=== PATIENT | female | born 1980 | race Caucasian/White ===

== ENCOUNTER 2018-05-18 08:04 | Emergency (ER) | payer BC, MEDICAID ==
[~2018-05-18] VITALS: Ht 157.5 cm; Wt 59.4 kg
[2018-05-18] MEDS ORDERED: LACTATED RINGERS 1,000 ML IV STA (08:21)
[2018-05-18] MEDS ORDERED: FAMOTIDINE 20 MG (PEPCID) TABLET PO STA (08:21)
[2018-05-18] MEDS ORDERED: LIDOCAINE 2% VISCOUS 15 ML UDC PO ONE (08:30)
[2018-05-18] MEDS ORDERED: ONDANSETRON 4 MG/2 ML (SDV) Z0FRAN IVP ONE ×2 (08:30→08:45)
[2018-05-18] MEDS ORDERED: ANTACID SUSP 30 ML UDC (MYLANTA) PO ONE (08:30)
--- NOTE | 2018-05-18 08:30 | ED Abdominal Pain ---
General Chief Complaint: Abdominal/GI Problems Stated Complaint: NAUSEA;ABD PAIN Nursing Triage Note: PT PRESENTS TO ER WITH COMPLAINT OF RUQ ABD PAIN AND EPIGASTRIC PAIN. PT WENT TO [facility] WALK IN CLINIC AND WAS TOLD IT COULD BE THE LIVER. PT STATES SHE HAS HAD NAUSEA AND VOMITING, CHILLS. DENIES FEVER. PT STATES SHE WAS PUT ON AMOXICILLIN BY AN ER DOC AT [facility] LAST THURSDAY. Sepsis Screen: No Definite Risk Source of Information: Patient, Family (son) Exam Limitations: No Limitations History of Present Illness Date Seen by Provider: May 18, 2018 Time Seen by Provider: 08:16 Initial Comments The patient presents to ER by private conveyance with chief complaint that for about 5 days she's been having some right upper quadrant epigastric abdominal pain worse on movement better at rest as well as nausea and occasional vomiting. She's had some soft or loose stools with her last one being yesterday. No watery or bloody diarrhea. She has not had a fever but she has had some subjective chills. She went to the walk-in clinic at [facility] and was told at that time her vital signs looked okay so she should just go home with a likely diagnosis of gastroenteritis. She's tried Aleve but that did not help her pain. They did not give her anything for nausea at that time because she had not vomited yet. No sick contacts. She's recently moved to the area so she does not have a primary care provider. She has no history of IBS, IBD. She has had her gallbladder out as well as a , tubal ligation, hysterectomy, stitch removal/abscess I&D. She has been able to eat and drink. Last night she had [place] food before that she's been eating a lot of spicy [place] food. She does not notice any particular food makes her symptoms worse. She has no history of pancreatitis. She does not drink alcohol. She does not have a history of diabetes. She does have a history of fibromyalgia, gestational diabetes, osteoarthritis. She says she was followed by a rn staffing previously for her fibromyalgia and she would like to find another one. Allergies and Home Medications Allergies Coded Allergies: codeine (Verified Allergy, Unknown, 05/18/18) hydrocodone (Verified Allergy, Unknown, 05/18/18) latex (Verified Allergy, Unknown, 05/18/18) oseltamivir (Verified Allergy, Unknown, 05/18/18) Patient Home Medication List Home Medication List Reviewed: Yes Review of Systems Review of Systems Constitutional: No chills, No diaphoresis EENTM: No Blurred Vision, No Double Vision Respiratory: Denies Cough, Denies Shortness of Air Cardiovascular: Denies Chest Pain, Denies Edema Gastrointestinal: See HPI; Denies Abdomen Distended; Abdominal Pain; Denies Constipated, Denies Diarrhea; Nausea; Denies Poor Appetite, Denies Poor Fluid Intake, Denies Vomiting Genitourinary: Denies Burning, Denies Discharge Musculoskeletal: No back pain, No joint pain Psychiatric/Neurological: Denies Anxiety, Denies Depressed Past Slwoegb-Nmzcia-Pjydfo Hx Patient Social History Alcohol Use: Denies Use Recreational Drug Use: No Smoking Status: Current Someday Smoker 2nd Hand Smoke Exposure: Yes Recent Foreign Travel: No Contact w/Someone Who Travel: No Recent Infectious Disease Expo: No Recent Hopitalizations: No Immunizations Up To Date Tetanus Booster (TDap): More than 5yrs PED Vaccines UTD: Yes Past Medical History Surgeries: Yes Section, Gallbladder, Hysterectomy, Tubal Ligation Respiratory: No Cardiac: No 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 oz. [id number]; BMI Method:Stated General Appearance: WD/WN, no apparent distress HEENT: normal ENT inspection, pharynx normal Neck: full range of motion, normal inspection Respiratory: no respiratory distress, no accessory muscle use Cardiovascular: normal peripheral pulses, regular rate, rhythm, no edema Gastrointestinal: normal bowel sounds, soft, no organomegaly; No distended, No guarding, No rebound; tenderness (epigastric tenderness mild right upper quadrant tenderness without Bonds sign. No Rovsing or McBurney's point tenderness.); No hernia Extremities: normal inspection, no pedal edema, normal capillary refill Neurologic/Psychiatric: alert, normal mood/affect, oriented x 3 Skin: normal color, warm/dry Progress/Results/Core Measures Results/Orders Lab Results Laboratory Tests Test 05/18/18 08:23 05/18/18 08:35 05/18/18 09:18 Range/Units White Blood Count 7.8 4.3-11.0 10^3/uL Red Blood Count 4.63 4.35-5.85 10^6/uL Hemoglobin 13.1 11.5-16.0 G/DL Hematocrit 39 35-52 % Mean Corpuscular Volume 84 80-99 FL Mean Corpuscular Hemoglobin 28 25-34 PG Mean Corpuscular Hemoglobin Concent 34 32-36 G/DL Red Cell Distribution Width 13.1 10.0-14.5 % Platelet Count 249 130-400 10^3/uL Mean Platelet Volume 9.8 7.4-10.4 FL Neutrophils (%) (Auto) 60 42-75 % Lymphocytes (%) (Auto) 30 12-44 % Monocytes (%) (Auto) 7 0-12 % Eosinophils (%) (Auto) 2 0-10 % Basophils (%) (Auto) 0 0-10 % Neutrophils # (Auto) 4.7 1.8-7.8 X 10^3 Lymphocytes # (Auto) 2.4 1.0-4.0 X 10^3 Monocytes # (Auto) 0.5 0.0-1.0 X 10^3 Eosinophils # (Auto) 0.2 0.0-0.3 10^3/uL Basophils # (Auto) 0.0 0.0-0.1 10^3/uL Prothrombin Time 12.2 12.2-14.7 SEC INR Comment 0.9 0.8-1.4 Activated Partial Thromboplast Time 31 24-35 SEC Urine Color YELLOW Urine Clarity CLEAR Urine pH 5 5-9 Urine Specific [place] 1.005 L 1.016-1.022 Urine Protein NEGATIVE NEGATIVE Urine Glucose (UA) NEGATIVE NEGATIVE Urine Ketones NEGATIVE NEGATIVE Urine Nitrite NEGATIVE NEGATIVE Urine Bilirubin NEGATIVE NEGATIVE Urine Urobilinogen NORMAL NORMAL MG/DL Urine Leukocyte Esterase NEGATIVE NEGATIVE Urine RBC (Auto) NEGATIVE NEGATIVE Urine RBC NONE /HPF Urine WBC RARE /HPF Urine Squamous Epithelial Cells 10-25 H /HPF Urine Crystals NONE /LPF Urine Bacteria FEW H /HPF Urine Casts NONE /LPF Urine Mucus NEGATIVE /LPF Urine Culture Indicated NO Urine Opiates Screen NEGATIVE NEGATIVE Urine Oxycodone Screen NEGATIVE NEGATIVE Urine Methadone Screen NEGATIVE NEGATIVE Urine Propoxyphene Screen NEGATIVE NEGATIVE Urine Barbiturates Screen NEGATIVE NEGATIVE Ur Tricyclic Antidepressants Screen NEGATIVE NEGATIVE Urine Phencyclidine Screen NEGATIVE NEGATIVE Urine Amphetamines Screen NEGATIVE NEGATIVE Urine Methamphetamines Screen NEGATIVE NEGATIVE Urine Benzodiazepines Screen NEGATIVE NEGATIVE Urine Cocaine Screen NEGATIVE NEGATIVE Urine Cannabinoids Screen NEGATIVE NEGATIVE Sodium Level 140 135-145 MMOL/L Potassium Level 3.8 3.6-5.0 MMOL/L Chloride Level 105 98-107 MMOL/L Carbon Dioxide Level 26 21-32 MMOL/L Anion Gap 9 5-14 MMOL/L Blood Urea Nitrogen 14 7-18 MG/DL Creatinine 0.63 0.60-1.30 MG/DL Estimat Glomerular Filtration Rate > 60 BUN/Creatinine Ratio 22 Glucose Level 112 H 70-105 MG/DL Calcium Level 9.0 8.5-10.1 MG/DL Corrected Calcium 9.2 8.5-10.1 MG/DL Magnesium Level 1.9 1.8-2.4 MG/DL Total Bilirubin 0.3 0.1-1.0 MG/DL Aspartate Amino Transf (AST/SGOT) 14 5-34 U/L Alanine Aminotransferase (ALT/SGPT) 18 0-55 U/L Alkaline Phosphatase 94 40-136 U/L Total Protein 6.8 6.4-8.2 GM/DL Albumin 3.7 3.2-4.5 GM/DL Lipase 7 L 8-78 U/L My Orders Orders - NAHID ZUNIGA Cbc With Automated Diff (05/18/18 08:21) Comprehensive Metabolic Panel (05/18/18 08:21) Drug Screen Stat (Urine) (05/18/18 08:21) Lipase (05/18/18 08:21) Magnesium (05/18/18 08:21) Protime With Inr (05/18/18 08:21) Partial Thromboplastin Time (05/18/18 08:21) Ua Culture If Indicated (05/18/18 08:21) Lidocaine 2% Viscous 15 Ml (Xylocaine Vi (05/18/18 08:30) Famotidine Tablet (Pepcid Tablet) (05/18/18 08:21) Antacid Suspension (Mylanta Suspension (05/18/18 08:30) Lactated Ringers (Lr 1000 Ml Iv Solution (05/18/18 08:21) Saline Lock/Iv-Start (05/18/18 08:21) Ondansetron Injection (Zofran Injectio (05/18/18 08:30) Ondansetron Injection (Zofran Injectio (05/18/18 08:45) Medications Given in ED Current Medications Medications Dose Ordered Sig/Tylor Route Start Time Stop Time Status Last Admin Dose Admin Al Hydrox/Mg Hydrox/Simethicone 30 ml ONCE ONCE PO 05/18/18 08:30 05/18/18 08:31 DC 05/18/18 09:09 30 ML Lidocaine HCl 15 ml ONCE ONCE PO 05/18/18 08:30 05/18/18 08:31 DC 05/18/18 09:09 15 ML Ondansetron HCl 4 mg ONCE ONCE IVP 05/18/18 08:30 05/18/18 08:31 DC 05/18/18 08:31 4 MG Ondansetron HCl 4 mg ONCE ONCE IVP 05/18/18 08:45 05/18/18 08:46 DC 05/18/18 08:40 4 MG Vital Signs/I&O 05/18/18 08:08 Temp 98.5 Pulse 95 Resp 20 B/P (MAP) 132/85 (101) Pulse Ox 98 O2 Delivery Room Air Blood Pressure Mean: 101 Progress Progress Note #1: Time: 08:31 Progress Note Nonacute abdomen. We'll give her a GI cocktail to start as well as some Zofran. Most likely this is a viral gastroenteritis. If she is able to eat and keep some food down and did not demonstrate any clinical evidence of dehydration and maybe a little just treat her symptoms. She's marginally tachycardic with a heart rate in the 90s so if there is an elevated white cell count and we will obtain a septic workup but no indication for imaging just yet. Lipase, urinalysis. Progress Note #2: Time: 09:54 Progress Note Patient's pain is marginally improved. She's only had one dry heaves since her second dose of Zofran. We'll give her a dose of Phenergan and let her go home. Her fluids are almost done. Her labs are clean. If this is most likely viral gastroenteritis and can be managed at home with some Zofran. Departure Impression Primary Impression: Gastroenteritis and colitis, viral Additional Impression: Abdominal pain Qualified Codes: R10.13 - Epigastric pain Disposition: 01 HOME, SELF-CARE Condition: Improved Departure-Patient Inst. Decision time for Depature: 09:56 Patient Instructions: [id number] Add. Discharge Instructions: Use the Zofran 1 tablet every 6 hours as needed to control your nausea and vomiting. Drink plenty of fluids. Edison diet of bananas, rice, applesauce toast etc. If your diarrhea is loose and watery for more than 2 days in a row start taking Imodium 2 tablets first followed by one tablet every 4 hours until no longer watery. Establish care with a primary care doctor. For your abdominal pain use antacids such as Tums, Maalox, Pepcid or Prilosec. Tylenol can also be helpful. All discharge instructions reviewed with patient and/or family. Voiced understanding. Scripts Ondansetron (Ondansetron Odt) 4 Mg Tab.rapdis 4 MG PO Q6H PRN for NAUSEA/VOMITING, #8 TAB 0 Refills Prov: NAHID ZUNIGA 05/18/18 Work/School Note: Work Release Form Date Seen in the Emergency Department: May 18, 2018 Return to Work: May 20, 2018 Restrictions: No Restrictions NAHID ZUNIGA May 18, 2018 08:30
[2018-05-18 08:31] LABS: BASOPHILS % (AUTO) 0 % (0-10); EOSINOPHILS # (AUTO) 0.2 10^3/uL (0.0-0.3); EOSINOPHILS % (AUTO) 2 % (0-10); HEMATOCRIT 39 % (35-52); HEMOGLOBIN 13.1 G/DL (11.5-16.0); LYMPHOCYTES # (AUTO) 2.4 X 10^3 (1.0-4.0); LYMPHOCYTES % (AUTO) 30 % (12-44); MEAN CORPUSCULAR HEMOGLOBIN 28 PG (25-34); MEAN CORPUSCULAR HGB CONC 34 G/DL (32-36); MEAN CORPUSCULAR VOLUME 84 FL (80-99); MEAN PLATELET VOLUME 9.8 FL (7.4-10.4); MONOCYTES # (AUTO) 0.5 X 10^3 (0.0-1.0); MONOCYTES % (AUTO) 7 % (0-12); NEUTROPHILS # (AUTO) 4.7 X 10^3 (1.8-7.8); NEUTROPHILS % (AUTO) 60 % (42-75); PLATELET COUNT 249 10^3/uL (130-400); RED BLOOD COUNT 4.63 10^6/uL (4.35-5.85); RED CELL DISTRIBUTION WIDTH 13.1 % (10.0-14.5); WHITE BLOOD COUNT 7.8 10^3/uL (4.3-11.0)
[2018-05-18 08:41] LABS: INR 0.9 (0.8-1.4); PROTHROMBIN TIME PATIENT 12.2 SEC (12.2-14.7)
[2018-05-18 08:48] LABS: BILIRUBIN,URINE NEGATIVE (NEGATIVE); CLARITY,URINE CLEAR; COLOR,URINE YELLOW; GLUCOSE, URINE (UA) NEGATIVE (NEGATIVE); KETONES,URINE NEGATIVE (NEGATIVE); LEUKOCYTE ESTERASE ,URINE NEGATIVE (NEGATIVE); NITRITE,URINE NEGATIVE (NEGATIVE); PH,URINE 5 (5-9); PROTEIN,URINE NEGATIVE (NEGATIVE); UROBILINOGEN,URINE NORMAL (NORMAL)
[2018-05-18 08:55] LABS: BACTERIA,URINE FEW /HPF; WBC,URINE RARE /HPF
[2018-05-18 09:00] LABS: AMPHETAMINE SCREEN, URINE NEGATIVE (NEGATIVE); BARBITURATE SCREEN URINE NEGATIVE (NEGATIVE); BENZODIAZEPINES SCREEN URINE NEGATIVE (NEGATIVE); CANNABINOID SCREEN, URINE NEGATIVE (NEGATIVE); COCAINE SCREEN URINE NEGATIVE (NEGATIVE); METHADONE STAT NEGATIVE (NEGATIVE); METHAMPHETAMINE SCREEN URINE S NEGATIVE (NEGATIVE); OPIATE SCREEN URINE NEGATIVE (NEGATIVE); OXYCODONE STAT NEGATIVE (NEGATIVE); PROPOXYPHENE STAT NEGATIVE (NEGATIVE); TRICYCLIC ANTIDEPRESSANTS SCRE NEGATIVE (NEGATIVE)
[2018-05-18 09:44] LABS: ALANINE AMINOTRANSFERASE 18 U/L (0-55); ALBUMIN 3.7 GM/DL (3.2-4.5); ALKALINE PHOSPHATASE 94 U/L (40-136); BILIRUBIN,TOTAL 0.3 MG/DL (0.1-1.0); BUN/CREATININE RATIO 22; CARBON DIOXIDE 26 MMOL/L (21-32); CHLORIDE 105 MMOL/L (98-107); CREATININE SERUM 0.63 MG/DL (0.60-1.30); GFR ESTIMATED > 60; GLUCOSE 112 MG/DL (70-105); LIPASE 7 U/L (8-78); MAGNESIUM 1.9 MG/DL (1.8-2.4); POTASSIUM 3.8 MMOL/L (3.6-5.0); SODIUM 140 MMOL/L (135-145); TOTAL PROTEIN 6.8 GM/DL (6.4-8.2)
[2018-05-18] MEDS ORDERED: ONDA4TAB11 PO (09:59)
[2018-05-18 10:28] VITALS: BP 132/85
== END 2018-05-18 10:28 | disposition home or self-care (01) ==
LOC: ER 08:06
DX: A08.4 Viral intestinal infection, unspecified (principal); E03.9 Hypothyroidism, unspecified; F17.200 Nicotine dependence, unspecified, uncomplicated; Z88.5 Allergy status to narcotic agent; Z88.8 Allergy status to other drugs, medicaments and biological substances; Z91.040 Latex allergy status; Z98.890 Other specified postprocedural states; Z98.51 Tubal ligation status; Z90.710 Acquired absence of both cervix and uterus
CPT/HCPCS: 36415; 80053; 80306; 81000; 83690; 83735; 85025; 85610; 85730; 96361; 96374

== ENCOUNTER 2018-08-16 11:50 | Emergency (ER) | payer BC, MEDICAID ==
[~2018-08-16] VITALS: Ht 157.5 cm; Wt 109.8 kg
[~2018-08-16 11:50] MED LIST: ONDA4TAB11 PO
--- NOTE | 2018-08-16 12:03 | ED Cough/URI ---
General Stated Complaint: SOB; COUGH Source: patient History of Present Illness Date Seen by Provider: Aug 16, 2018 Time Seen by Provider: 12:02 Initial Comments This 38-year-old white female presents with increasing shortness of breath, cough, and wheezing. Patient's symptoms have been progressive for the past month but much worse in the last few days. Patient has a history of asthmatic bronchitis. The patient has moved recently and does not have her inhalers. The patient states that when she becomes symptomatic she typically requires inhalers, steroids, and antibiotics. Patient denies associated headache stiff neck or photophobia, nausea vomiting or diarrhea, palpitations or chest pain, dysuria or frequency. Allergies and Home Medications Allergies Coded Allergies: codeine (Verified Allergy, Unknown, 05/18/18) hydrocodone (Verified Allergy, Unknown, 05/18/18) latex (Verified Allergy, Unknown, 05/18/18) oseltamivir (Verified Allergy, Unknown, 05/18/18) Home Medications Ondansetron 4 Mg Tab.rapdis, 4 MG PO Q6H PRN for NAUSEA/VOMITING Prescribed by: NAHID ZUNIGA on 05/18/18 0959 Patient Home Medication List Home Medication List Reviewed: Yes Review of Systems Review of Systems Constitutional: No chills, No fever EENTM: No hearing loss Respiratory: see HPI, cough, short of breath, wheezing Cardiovascular: No chest pain, No palpitations Gastrointestinal: No abdominal pain, No diarrhea, No nausea, No vomiting Genitourinary: No dysuria, No frequency Musculoskeletal: No back pain Skin: No rash Psychiatric/Neurological: No Symptoms Reported Hematologic/Lymphatic: No Symptoms Reported Immunological/Allergic: no symptoms reported Past Afokowh-Fxheym-Dujkvd Hx Past Med/Social Hx: Reviewed Nursing Past Med/Soc Hx Patient Social History 2nd Hand Smoke Exposure: Yes Recent Hopitalizations: No Immunizations Up To Date Tetanus Booster (TDap): More than 5yrs PED Vaccines UTD: Yes Past Medical History Surgeries: Yes Section, Gallbladder, Hysterectomy, Tubal Ligation Respiratory: No Cardiac: No 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 oz. 59.552102ia; BMI Method:Stated General Appearance: WD/WN, no apparent distress HEENT: PERRL/EOMI Neck: full range of motion, normal inspection Respiratory: decreased breath sounds, wheezing Cardiovascular: regular rate, rhythm, no murmur Gastrointestinal: normal bowel sounds, non tender, soft Extremities: normal range of motion Neurologic/Psychiatric: no motor/sensory deficits, alert, normal mood/affect Skin: normal color, warm/dry Progress/Results/Core Measures Suspected Sepsis SIRS Temperature: Pulse: Respiratory Rate: Laboratory Tests 08/16/18 12:20: White Blood Count 6.4 Blood Pressure / Mean: Laboratory Tests 08/16/18 12:20: Platelet Count 229 Results/Orders Lab Results Laboratory Tests Test 08/16/18 12:20 Range/Units White Blood Count 6.4 4.3-11.0 10^3/uL Red Blood Count 4.97 4.35-5.85 10^6/uL Hemoglobin 13.6 11.5-16.0 G/DL Hematocrit 42 35-52 % Mean Corpuscular Volume 85 80-99 FL Mean Corpuscular Hemoglobin 27 25-34 PG Mean Corpuscular Hemoglobin Concent 32 32-36 G/DL Red Cell Distribution Width 13.1 10.0-14.5 % Platelet Count 229 130-400 10^3/uL Mean Platelet Volume 9.7 7.4-10.4 FL Neutrophils (%) (Auto) 47 42-75 % Lymphocytes (%) (Auto) 33 12-44 % Monocytes (%) (Auto) 13 H 0-12 % Eosinophils (%) (Auto) 7 0-10 % Basophils (%) (Auto) 1 0-10 % Neutrophils # (Auto) 3.0 1.8-7.8 X 10^3 Lymphocytes # (Auto) 2.1 1.0-4.0 X 10^3 Monocytes # (Auto) 8.0 H 0.0-1.0 X 10^3 Eosinophils # (Auto) 0.5 H 0.0-0.3 10^3/uL Basophils # (Auto) 0.1 0.0-0.1 10^3/uL My Orders Orders - CEDRICK BRAVO MD Chest Pa/Lat (2 View) (08/16/18 12:03) Cbc With Automated Diff (08/16/18 12:03) Ns Iv 1000 Ml (Sodium Chloride 0.9%) (08/16/18 12:15) Methylprednisolone Sod Succ (Solu-Medrol (08/16/18 12:15) Albuterol/Ipra Inhalation Soln (Duoneb I (08/16/18 12:15) Svn Small Volume Nebulizer (08/16/18 12:03) Medications Given in ED Current Medications Medications Dose Ordered Sig/Tylor Route Start Time Stop Time Status Last Admin Dose Admin Albuterol/ Ipratropium 3 ml ONCE ONCE INH 08/16/18 12:15 08/16/18 12:16 DC 08/16/18 12:25 3 ML Methylprednisolone Sodium Succinate 125 mg ONCE ONCE IVP 08/16/18 12:15 08/16/18 12:16 DC 08/16/18 12:24 125 MG Vital Signs/I&O 08/16/18 08/16/18 11:55 11:55 Temp 97.3 Pulse 92 Resp 20 B/P (MAP) 112/93 (99) Pulse Ox 97 O2 Delivery Room Air Room Air Capillary Refill : Progress Note : Time: 12:57 Progress Note Patient received DuoNeb treatments and 125 mg of Solu-Medrol IV. Patient's CBC and chest x-ray failed to demonstrate evidence of acute pathology. Patient was feeling significantly improved following her treatment. I discharged patient on prednisone, Bactrim DS, and Ventolin inhaler. I she'll follow-up with her doctor tomorrow. I invited her to return to the emergency department if she had any further problems or questions. Departure Impression Primary Impression: Asthmatic bronchitis Qualified Codes: J45.41 - Moderate persistent asthma with (acute) exacerbation Disposition: 01 HOME, SELF-CARE Condition: Improved Departure-Patient Inst. Decision time for Depature: 12:59 Referrals: DAVID THURSTON APRN (PCP) Primary Care Physician ANDREA RINCON MD (Family) Primary Care Physician Patient Instructions: Acute Bronchitis, Adult (DC) Add. Discharge Instructions: Prednisone, Ventolin, and Bactrim DS as prescribed. Close follow-up with your doctor tomorrow. Return if any problems or questions. Today or tomorrow. CEDRICK BRAVO MD Aug 16, 2018 12:03
[2018-08-16] MEDS ORDERED: methylPREDNISolone 125 MG (Solu-MEDROL) VIAL IVP ONE (12:15)
[2018-08-16] MEDS ORDERED: NS IV 1000 ML 1,000 ML IV SCH (12:15)
[2018-08-16] MEDS ORDERED: RT-ALBUTEROL/IPRATROPIUM 3 ML (DUONEB) VIAL INH ONE (12:15)
[2018-08-16 12:34] LABS: HEMATOCRIT 42 % (35-52); HEMOGLOBIN 13.6 G/DL (11.5-16.0); MEAN CORPUSCULAR HEMOGLOBIN 27 PG (25-34); MEAN CORPUSCULAR HGB CONC 32 G/DL (32-36); MEAN CORPUSCULAR VOLUME 85 FL (80-99); MEAN PLATELET VOLUME 9.7 FL (7.4-10.4); NEUTROPHILS % (AUTO) 47 % (42-75); PLATELET COUNT 229 10^3/uL (130-400); RED CELL DISTRIBUTION WIDTH 13.1 % (10.0-14.5); WHITE BLOOD COUNT 6.4 10^3/uL (4.3-11.0)
[2018-08-16 12:35] LABS: BASOPHILS # (AUTO) 0.1 10^3/uL (0.0-0.1); BASOPHILS % (AUTO) 1 % (0-10); EOSINOPHILS # (AUTO) 0.5 10^3/uL (0.0-0.3); EOSINOPHILS % (AUTO) 7 % (0-10); LYMPHOCYTES # (AUTO) 2.1 X 10^3 (1.0-4.0); LYMPHOCYTES % (AUTO) 33 % (12-44); MONOCYTES % (AUTO) 13 % (0-12)
--- NOTE | 2018-08-16 12:45 | Diagnostic Imaging Report ---
Indication: Cough and congestion. Findings: The lungs are clear. Heart and vessels normal. No pleural abnormality. No free air beneath the diaphragms. Impression: Normal two-view chest. Dictated by: Dictated on workstation # [id number]
[2018-08-16 13:05] VITALS: BP 109/90
== END 2018-08-16 13:05 | disposition home or self-care (01) ==
LOC: EDUNIT# 11:50 → ER FS 11:52
DX: J45.909 Unspecified asthma, uncomplicated (principal); E03.9 Hypothyroidism, unspecified; M79.7 Fibromyalgia; Z88.5 Allergy status to narcotic agent; Z91.040 Latex allergy status; Z88.8 Allergy status to other drugs, medicaments and biological substances; Z98.51 Tubal ligation status; Z90.710 Acquired absence of both cervix and uterus; Z98.890 Other specified postprocedural states
CPT/HCPCS: 36415; 71046; 85025

== ENCOUNTER 2018-09-14 14:08 | Emergency (ER) | payer BC, MEDICAID ==
[~2018-09-14] VITALS: Ht 157.5 cm; Wt 110.2 kg
--- NOTE | 2018-09-14 14:38 | ED Chest Pain ---
General Stated Complaint: CHEST PAIN; NAUSEA; VOMITING; LT ARM NUMBNESS Source: patient, RN notes reviewed Exam Limitations: no limitations History of Present Illness Date Seen by Provider: September 14, 2018 Time Seen by Provider: 14:35 Initial Comments Patient presents c/ c/o sudden onset of chest pain while driving earlier today. Describes it as a pressure and rated it an 8/10. 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 (+) N/V. States she also had some left facial, arm, and leg numbness as well. Does admit to being under a lot of stress. Not aware of any fever. Has had a cough. Denies any associated dyspnea, or diaphoresis. Timing/Duration: 4-6 hours, intermittent (last 2 months) Severity/Quality: moderate (8/10), pressure Location: other (left chest) Radiation: no radiation Activities at Onset: other (driving) Prior CP/Workup: no prior cardiac workup Modifying Factors: improves with other (none) ASA po PSYCHIATRIC NP: No NTG SL PSYCHIATRIC NP: No Associated Symptoms: denies symptoms (x/ as noted. ), nausea/vomiting Allergies and Home Medications Allergies Coded Allergies: codeine (Verified Allergy, Unknown, 05/18/18) hydrocodone (Verified Allergy, Unknown, 05/18/18) latex (Verified Allergy, Unknown, 05/18/18) oseltamivir (Verified Allergy, Unknown, 05/18/18) Home Medications Hydroxyzine Pamoate 25 Mg Capsule, 25-50 MG PO Q6H Prescribed by: LUIS ANGEL LUJAN on 09/14/18 1637 Ondansetron 4 Mg Tab.rapdis, 4 MG PO Q6H PRN for NAUSEA/VOMITING Prescribed by: NAHID ZUNIGA on 05/18/18 0959 Patient Home Medication List Home Medication List Reviewed: Yes Review of Systems Review of Systems Constitutional: see HPI Cardiovascular: See HPI, Chest Pain Gastrointestinal: See HPI, Nausea, Vomiting Psychiatric/Neurological: See HPI, Anxiety, Numbness (left face, arm and leg) All Other Systems Reviewed Negative Unless Noted: Yes (Negative excepted noted.) Past Zogoxsq-Jxxgal-Gdtiux Hx Patient Social History 2nd Hand Smoke Exposure: Yes Recent Hopitalizations: No Immunizations Up To Date Tetanus Booster (TDap): More than 5yrs PED Vaccines UTD: Yes Seasonal Allergies Seasonal Allergies: No Past Medical History Surgeries: Yes Section, Gallbladder, Hysterectomy, Tubal Ligation Respiratory: Yes (FREQUENT ASTHMATIC BRONCHITIS) Cardiac: No 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 oz. 109.242634em; BMI Method:Stated General Appearance: No Apparent Distress, WD/WN, Obese Respiratory: No Respiratory Distress Cardiovascular: Regular Rate, Rhythm Rectal: Deferred Neurologic/Psychiatric: Alert, Oriented x3, No Motor/Sensory Deficits Skin: Warm/Dry Progress/Results/Core Measures Results/Orders Lab Results Laboratory Tests Test 09/14/18 14:35 09/14/18 14:40 Range/Units White Blood Count 10.3 4.3-11.0 10^3/uL Red Blood Count 4.48 4.35-5.85 10^6/uL Hemoglobin 12.5 11.5-16.0 G/DL Hematocrit 37 35-52 % Mean Corpuscular Volume 84 80-99 FL Mean Corpuscular Hemoglobin 28 25-34 PG Mean Corpuscular Hemoglobin Concent 33 32-36 G/DL Red Cell Distribution Width 13.2 10.0-14.5 % Platelet Count 251 130-400 10^3/uL Mean Platelet Volume 10.1 7.4-10.4 FL Neutrophils (%) (Auto) 62 42-75 % Lymphocytes (%) (Auto) 25 12-44 % Monocytes (%) (Auto) 8 0-12 % Eosinophils (%) (Auto) 4 0-10 % Basophils (%) (Auto) 1 0-10 % Neutrophils # (Auto) 6.4 1.8-7.8 X 10^3 Lymphocytes # (Auto) 2.6 1.0-4.0 X 10^3 Monocytes # (Auto) 0.8 0.0-1.0 X 10^3 Eosinophils # (Auto) 0.4 H 0.0-0.3 10^3/uL Basophils # (Auto) 0.1 0.0-0.1 10^3/uL Prothrombin Time 12.4 12.2-14.7 SEC INR Comment 0.9 0.8-1.4 Activated Partial Thromboplast Time 28 24-35 SEC Sodium Level 138 135-145 MMOL/L Potassium Level 3.7 3.6-5.0 MMOL/L Chloride Level 102 98-107 MMOL/L Carbon Dioxide Level 26 21-32 MMOL/L Anion Gap 10 5-14 MMOL/L Blood Urea Nitrogen 18 7-18 MG/DL Creatinine 0.81 0.60-1.30 MG/DL Estimat Glomerular Filtration Rate > 60 BUN/Creatinine Ratio 22 Glucose Level 126 H 70-105 MG/DL Calcium Level 8.9 8.5-10.1 MG/DL Corrected Calcium 9.2 8.5-10.1 MG/DL Magnesium Level 1.8 1.8-2.4 MG/DL Total Bilirubin 0.2 0.1-1.0 MG/DL Aspartate Amino Transf (AST/SGOT) 23 5-34 U/L Alanine Aminotransferase (ALT/SGPT) 35 0-55 U/L Alkaline Phosphatase 105 40-136 U/L Myoglobin < 21.0 10.0-92.0 NG/ML Troponin T < 6 <=10 NG/L Total Protein 7.1 6.4-8.2 GM/DL Albumin 3.6 3.2-4.5 GM/DL Lipase 20 8-78 U/L Urine Color YELLOW Urine Clarity CLEAR Urine pH 6.0 5-9 Urine Specific [place] 1.020 1.016-1.022 Urine Protein NEGATIVE NEGATIVE Urine Glucose (UA) NEGATIVE NEGATIVE Urine Ketones NEGATIVE NEGATIVE Urine Nitrite NEGATIVE NEGATIVE Urine Bilirubin NEGATIVE NEGATIVE Urine Urobilinogen 0.2 NORMAL MG/DL Urine Leukocyte Esterase NEGATIVE NEGATIVE Urine RBC (Auto) 1+ H NEGATIVE Urine RBC 0-2 /HPF Urine WBC NONE /HPF Urine Squamous Epithelial Cells 5-10 /HPF Urine Crystals NONE /LPF Urine Bacteria NONE /HPF Urine Casts NONE /LPF Urine Mucus NEGATIVE /LPF Urine Culture Indicated NO Urine Test NEGATIVE NEGATIVE Urine Opiates Screen NEGATIVE NEGATIVE Urine Oxycodone Screen NEGATIVE NEGATIVE Urine Methadone Screen NEGATIVE NEGATIVE Urine Propoxyphene Screen NEGATIVE NEGATIVE Urine Barbiturates Screen NEGATIVE NEGATIVE Ur Tricyclic Antidepressants Screen NEGATIVE NEGATIVE Urine Phencyclidine Screen NEGATIVE NEGATIVE Urine Amphetamines Screen NEGATIVE NEGATIVE Urine Methamphetamines Screen NEGATIVE NEGATIVE Urine Benzodiazepines Screen NEGATIVE NEGATIVE Urine Cocaine Screen NEGATIVE NEGATIVE Urine Cannabinoids Screen NEGATIVE NEGATIVE My Orders Orders - LUIS ANGEL LUJAN DO Chest 1 View Ap/Pa Only (09/14/18 14:35) Ekg Tracing (09/14/18 14:35) Cbc With Automated Diff (09/14/18 14:35) Comprehensive Metabolic Panel (09/14/18 14:35) Drug Screen Stat (Urine) (09/14/18 14:35) Hcg,Qualitative Urine (09/14/18 14:35) Lipase (09/14/18 14:35) Magnesium (09/14/18 14:35) Ua Culture If Indicated (09/14/18 14:35) Troponin T (09/14/18 14:35) Ct Head Wo (09/14/18 14:35) Myoglobin Serum (09/14/18 14:35) Protime With Inr (09/14/18 14:35) Partial Thromboplastin Time (09/14/18 14:35) Monitor-Rhythm Ecg Trace Only (09/14/18 14:35) Ed Iv/Invasive Line Start (09/14/18 14:35) Vital Signs/I&O 09/14/18 09/14/18 09/14/18 14:15 14:15 17:00 Temp 99.0 98.9 Pulse 96 95 Resp 18 17 B/P (MAP) 111/67 (82) 100/43 (62) Pulse Ox 97 96 O2 Delivery Room Air Room Air Room Air Progress Progress Note : Progress Note Patient symptoms resolved while here. Admits stress could be a factor. Encouraged to keep cariology appointment next week as scheduled. Initial ECG Impression Date: September 14, 2018 Initial ECG Impression Time: 14:25 Initial ECG Rate: 86 Initial ECG Rhythm: Normal Sinus Initial ECG Intervals: Normal Initial ECG Impression: Normal Diagnostic Imaging Diagonstic Imaging: Xray, CT Plain Films/CT/US/NM/MRI: chest (NAD), head (NAD) Departure Impression Primary Impression: Non-cardiac chest pain Additional Impressions: Anxiety Paresthesia Disposition: 01 HOME, SELF-CARE Condition: Improved Departure-Patient Inst. Decision time for Depature: 16:36 Referrals: DAVID THURSTON APRN (PCP) Primary Care Physician ANDREA RINCON MD (Family) Primary Care Physician Patient Instructions: Chest Pain That Is Not Caused by the Heart (DC), Anxiety , Adult (DC) Scripts Hydroxyzine Pamoate (Vistaril) 25 Mg Capsule 25-50 MG PO Q6H for Anxiety, #30 CAP 0 Refills Prov: LUIS ANGEL LUJAN DO 09/14/18 LUIS ANGEL LUJAN DO September 14, 2018 14:38
--- NOTE | 2018-09-14 14:50 | Diagnostic Imaging Report ---
INDICATION: Left-sided numbness. Chest pain. Nausea. TECHNIQUE: Routine non contrast-enhanced axial images were obtained from the skull base to the vertex. Auto Exposure Controls were utilized during the CT exam to meet ALARA standards for radiation dose reduction COMPARISON: None. FINDINGS: The ventricles and cortical sulci are normal in size and contour. There is no midline shift or mass-effect. No acute intra-axial hemorrhage is seen. There are no abnormal areas of increased or decreased density to suggest acute hemorrhage or edema. No extra-axial masses or collections are present. The bony calvarium is intact. The visualized paranasal sinuses are unremarkable. The mastoid air cells are clear. IMPRESSION: 1. No acute intracranial abnormality. No CT evidence of mass, acute infarct or intracranial hemorrhage. Dictated by: Dictated on workstation # [id number]
--- NOTE | 2018-09-14 14:51 | Diagnostic Imaging Report ---
INDICATION: Chest pain. Nausea. COMPARISON: 08/16/2018. FINDINGS: Single frontal view of the chest demonstrates normal heart size and pulmonary vascularity. The lungs are well aerated and clear. No large pleural effusion or pneumothorax is seen. The visualized osseous structures show no acute abnormalities. IMPRESSION: 1. No acute cardiopulmonary process. Dictated by: Dictated on workstation # [id number]
[2018-09-14 15:08] LABS: BASOPHILS # (AUTO) 0.1 10^3/uL (0.0-0.1); BASOPHILS % (AUTO) 1 % (0-10); EOSINOPHILS # (AUTO) 0.4 10^3/uL (0.0-0.3); EOSINOPHILS % (AUTO) 4 % (0-10); HEMATOCRIT 37 % (35-52); HEMOGLOBIN 12.5 G/DL (11.5-16.0); LYMPHOCYTES # (AUTO) 2.6 X 10^3 (1.0-4.0); LYMPHOCYTES % (AUTO) 25 % (12-44); MEAN CORPUSCULAR HEMOGLOBIN 28 PG (25-34); MEAN CORPUSCULAR HGB CONC 33 G/DL (32-36); MEAN CORPUSCULAR VOLUME 84 FL (80-99); MEAN PLATELET VOLUME 10.1 FL (7.4-10.4); MONOCYTES # (AUTO) 0.8 X 10^3 (0.0-1.0); MONOCYTES % (AUTO) 8 % (0-12); NEUTROPHILS # (AUTO) 6.4 X 10^3 (1.8-7.8); NEUTROPHILS % (AUTO) 62 % (42-75); PLATELET COUNT 251 10^3/uL (130-400); RED CELL DISTRIBUTION WIDTH 13.2 % (10.0-14.5); WHITE BLOOD COUNT 10.3 10^3/uL (4.3-11.0)
[2018-09-14 15:18] LABS: INR 0.9 (0.8-1.4); PROTHROMBIN TIME PATIENT 12.4 SEC (12.2-14.7)
[2018-09-14 15:18] LABS: AMPHETAMINE SCREEN, URINE NEGATIVE (NEGATIVE); BARBITURATE SCREEN URINE NEGATIVE (NEGATIVE); BENZODIAZEPINES SCREEN URINE NEGATIVE (NEGATIVE); CANNABINOID SCREEN, URINE NEGATIVE (NEGATIVE); COCAINE SCREEN URINE NEGATIVE (NEGATIVE); HCG,QUALITATIVE URINE NEGATIVE (NEGATIVE); METHADONE STAT NEGATIVE (NEGATIVE); METHAMPHETAMINE SCREEN URINE S NEGATIVE (NEGATIVE); OPIATE SCREEN URINE NEGATIVE (NEGATIVE); OXYCODONE STAT NEGATIVE (NEGATIVE); PROPOXYPHENE STAT NEGATIVE (NEGATIVE); TRICYCLIC ANTIDEPRESSANTS SCRE NEGATIVE (NEGATIVE)
[2018-09-14 15:30] LABS: BILIRUBIN,URINE NEGATIVE (NEGATIVE); CLARITY,URINE CLEAR; COLOR,URINE YELLOW; GLUCOSE, URINE (UA) NEGATIVE (NEGATIVE); KETONES,URINE NEGATIVE (NEGATIVE); NITRITE,URINE NEGATIVE (NEGATIVE); PROTEIN,URINE NEGATIVE (NEGATIVE)
[2018-09-14 15:31] LABS: LEUKOCYTE ESTERASE ,URINE NEGATIVE (NEGATIVE); RBC,URINE 0-2 /HPF; UROBILINOGEN,URINE 0.2 MG/DL (NORMAL)
[2018-09-14 15:54] LABS: BILIRUBIN,TOTAL 0.2 MG/DL (0.1-1.0); BUN/CREATININE RATIO 22; CALCIUM 8.9 MG/DL (8.5-10.1); CARBON DIOXIDE 26 MMOL/L (21-32); CHLORIDE 102 MMOL/L (98-107); CREATININE SERUM 0.81 MG/DL (0.60-1.30); GFR ESTIMATED > 60; GLUCOSE 126 MG/DL (70-105); MAGNESIUM 1.8 MG/DL (1.8-2.4); POTASSIUM 3.7 MMOL/L (3.6-5.0); SODIUM 138 MMOL/L (135-145)
[2018-09-14 15:55] LABS: ALANINE AMINOTRANSFERASE 35 U/L (0-55); ALBUMIN 3.6 GM/DL (3.2-4.5); ALKALINE PHOSPHATASE 105 U/L (40-136); LIPASE 20 U/L (8-78); TOTAL PROTEIN 7.1 GM/DL (6.4-8.2)
[2018-09-14] MEDS ORDERED: HYDR25CA PO (16:37)
[2018-09-14 17:00] VITALS: BP 100/43
== END 2018-09-14 16:52 | disposition home or self-care (01) ==
LOC: EDUNIT# 14:08 → ER FS 14:09
DX: R07.9 Chest pain, unspecified (principal); F41.9 Anxiety disorder, unspecified; J45.909 Unspecified asthma, uncomplicated; M79.7 Fibromyalgia; E03.9 Hypothyroidism, unspecified; F32.9 Major depressive disorder, single episode, unspecified; Z88.5 Allergy status to narcotic agent; Z91.040 Latex allergy status; Z88.8 Allergy status to other drugs, medicaments and biological substances; Z90.710 Acquired absence of both cervix and uterus; Z98.51 Tubal ligation status; Z98.890 Other specified postprocedural states
CPT/HCPCS: 36415; 70450; 71045; 80053; 80306; 81000; 83690; 83735; 83874; 84484; 84703; 85025; 85610; 85730; 93041

== ENCOUNTER 2018-09-29 15:29 | Emergency (ER) | payer BC, MEDICAID ==
[~2018-09-29] VITALS: Ht 157.5 cm; Wt 112.0 kg
[~2018-09-29 15:29] MED LIST changes: +HYDR25CA PO
--- NOTE | 2018-09-29 16:40 | ED Chest Pain ---
General Chief Complaint: Chest Pain Stated Complaint: NAUSEA,L SIDED JAW PAIN Source: patient Exam Limitations: no limitations History of Present Illness Date Seen by Provider: September 29, 2018 Time Seen by Provider: 16:25 Initial Comments The patient presents to ER by private conveyance with chief complaint chest pain starting up just a few hours ago. She's been having jaw pain since yesterday evening and her left side going into her neck. It slowly radiated down into her chest. She's had pains like this before so her primary care team sent her to a traffic law attorney with the nurse practitioner had ordered a stress test in the following few weeks. She is a lot of stress in her life. She has no history of coronary disease. Her mother had her first heart attack at age 58. She was having some nausea waves overwhelming her while she was sitting with her mother before She came in. She has been to the left side but has not seen a dentist for. Doesn't have any shortness of breath, cough, fevers chills or history of lung disease. No history of GERD or anxiety. No personal history of diabetes, smoking, hypertension, hyperlipidemia. Allergies and Home Medications Allergies Coded Allergies: codeine (Verified Allergy, Unknown, 05/18/18) hydrocodone (Verified Allergy, Unknown, 05/18/18) latex (Verified Allergy, Unknown, 05/18/18) oseltamivir (Verified Allergy, Unknown, 05/18/18) Home Medications Amoxicillin 500 Mg Capsule, 500 MG PO TID Prescribed by: NAHID ZUNIGA on 09/29/18 181 Hydroxyzine Pamoate 25 Mg Capsule, 25-50 MG PO Q6H Prescribed by: LUIS ANGEL LUJAN on 09/14/18 1637 Ondansetron 4 Mg Tab.rapdis, 4 MG PO Q6H PRN for NAUSEA/VOMITING Prescribed by: NAHID ZUNIGA on 05/18/18 0959 Patient Home Medication List Home Medication List Reviewed: Yes Review of Systems Review of Systems Constitutional: No chills, No diaphoresis, No malaise EENTM: No Blurred Vision, No Double Vision; Mouth Pain (left mandible) Respiratory: Denies Cough Cardiovascular: See HPI, Chest Pain; Denies Edema, Denies Lightheadedness, Denies Palpitations, Denies Syncope Gastrointestinal: Denies Constipated, Denies Diarrhea, Denies Nausea Genitourinary: Denies Burning, Denies Discharge Musculoskeletal: No back pain, No joint pain Skin: No pruritus, No rash Past Mpivknd-Poijmz-Ftlfxt Hx Patient Social History Alcohol Use: Denies Use Recreational Drug Use: No Smoking Status: Never a Smoker 2nd Hand Smoke Exposure: Yes Recent Foreign Travel: No Contact w/Someone Who Travel: No Recent Hopitalizations: No Immunizations Up To Date Tetanus Booster (TDap): More than 5yrs PED Vaccines UTD: Yes Seasonal Allergies Seasonal Allergies: No Past Medical History Surgeries: Yes Section, Gallbladder, Hysterectomy, Tubal Ligation Respiratory: Yes (FREQUENT ASTHMATIC BRONCHITIS) Cardiac: No 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 oz. 110.025752lj; BMI Method:Stated General Appearance: WD/WN, Anxious, Mild Distress (mild jaw pain) HEENT: PERRL/EOMI, TMs Normal, Normal ENT Inspection, Other (posterior molar on the left mandible has advanced caries) Neck: Full Range of Motion, Normal Inspection; No Non Tender; Supple, Tender Lateral (L) Respiratory: Chest Non Tender, Lungs Clear, Normal Breath Sounds, No Accessory Muscle Use, No Respiratory Distress Cardiovascular: Regular Rate, Rhythm, No Edema, Normal Peripheral Pulses Gastrointestinal: Normal Bowel Sounds, No Organomegaly, Non Tender, Soft Neurologic/Psychiatric: Alert, Oriented x3 Skin: Normal Color, Warm/Dry Progress/Results/Core Measures Results/Orders Lab Results Laboratory Tests Test 09/29/18 16:58 09/29/18 18:06 Range/Units White Blood Count 7.6 4.3-11.0 10^3/uL Red Blood Count 4.59 4.35-5.85 10^6/uL Hemoglobin 12.3 11.5-16.0 G/DL Hematocrit 37 35-52 % Mean Corpuscular Volume 81 80-99 FL Mean Corpuscular Hemoglobin 27 25-34 PG Mean Corpuscular Hemoglobin Concent 33 32-36 G/DL Red Cell Distribution Width 13.4 10.0-14.5 % Platelet Count 234 130-400 10^3/uL Mean Platelet Volume 9.8 7.4-10.4 FL Neutrophils (%) (Auto) 66 42-75 % Lymphocytes (%) (Auto) 22 12-44 % Monocytes (%) (Auto) 10 0-12 % Eosinophils (%) (Auto) 2 0-10 % Basophils (%) (Auto) 0 0-10 % Neutrophils # (Auto) 5.0 1.8-7.8 X 10^3 Lymphocytes # (Auto) 1.6 1.0-4.0 X 10^3 Monocytes # (Auto) 0.8 0.0-1.0 X 10^3 Eosinophils # (Auto) 0.2 0.0-0.3 10^3/uL Basophils # (Auto) 0.0 0.0-0.1 10^3/uL Prothrombin Time 13.0 12.2-14.7 SEC INR Comment 0.9 0.8-1.4 Activated Partial Thromboplast Time 30 24-35 SEC Sodium Level 140 135-145 MMOL/L Potassium Level 3.8 3.6-5.0 MMOL/L Chloride Level 104 98-107 MMOL/L Carbon Dioxide Level 22 21-32 MMOL/L Anion Gap 14 5-14 MMOL/L Blood Urea Nitrogen 13 7-18 MG/DL Creatinine 0.68 0.60-1.30 MG/DL Estimat Glomerular Filtration Rate > 60 BUN/Creatinine Ratio 19 Glucose Level 102 70-105 MG/DL Calcium Level 9.3 8.5-10.1 MG/DL Corrected Calcium 9.3 8.5-10.1 MG/DL Magnesium Level 2.0 1.8-2.4 MG/DL Total Bilirubin 0.3 0.1-1.0 MG/DL Aspartate Amino Transf (AST/SGOT) 37 H 5-34 U/L Alanine Aminotransferase (ALT/SGPT) 63 H 0-55 U/L Alkaline Phosphatase 95 40-136 U/L Myoglobin 21.0 10.0-92.0 NG/ML Troponin I < 0.028 < 0.028 <0.028 NG/ML B-Type Natriuretic Peptide < 10.0 <100.0 PG/ML Total Protein 7.6 6.4-8.2 GM/DL Albumin 4.0 3.2-4.5 GM/DL My Orders Orders - EFRAINNAHID J Cbc With Automated Diff (09/29/18 16:38) Magnesium (09/29/18 16:38) Chest 1 View, Ap/Pa Only (09/29/18 16:38) Ekg Tracing (09/29/18 16:38) Cardiac Profile 1 (09/29/18 16:38) Comprehensive Metabolic Panel (09/29/18 16:38) Myoglobin Serum (09/29/18 16:38) Protime With Inr (09/29/18 16:38) Partial Thromboplastin Time (09/29/18 16:38) O2 (09/29/18 16:38) Monitor-Rhythm Ecg Trace Only (09/29/18 16:38) Lipid Panel (09/30/18 06:00) Ed Iv/Invasive Line Start (09/29/18 16:38) BNP (09/29/18 16:38) Nitroglycerin 0.4 Mg Btl 25's (Nitrostat (09/29/18 16:45) Aspirin Chewable Tablet (Baby Aspirin Ch (09/29/18 16:45) Ondansetron Injection (Zofran Injectio (09/29/18 16:45) Morphine Injection (Morphine Injection (09/29/18 17:20) Troponin I (09/29/18 18:01) Medications Given in ED Current Medications Medications Dose Ordered Sig/Tylor Route Start Time Stop Time Status Last Admin Dose Admin Aspirin 324 mg ONCE ONCE PO 09/29/18 16:45 09/29/18 16:46 DC 09/29/18 16:51 324 MG Nitroglycerin 0.4 mg UD PRN SL 09/29/18 16:45 09/29/18 16:51 0.4 MG Ondansetron HCl 4 mg ONCE ONCE IVP 09/29/18 16:45 09/29/18 16:46 DC 09/29/18 16:51 4 MG Vital Signs/I&O 09/29/18 09/29/18 09/29/18 16:44 16:52 16:59 Pulse 87 89 Resp 14 20 B/P (MAP) 154/87 (109) 148/84 (105) 105/61 (76) Pulse Ox 97 97 O2 Delivery Room Air Room Air Progress Progress Note : Time: 18:06 Progress Note The jaw pains been going on for a few days and seems to be tender to palpation and related to the dental caries. The chest pain is new today and she's had it in the past few weeks and that's why her primary care doctor has got her set up for a stress test in the next 1-2 weeks. She received a dose of nitroglycerin which made her chest pain go away but did nothing for her jaw pain. We gave her some morphine which helped her jaw pain. I suspect there are 2 different origins for her pain and we'll encourage her to follow-up with cardiology as soon as possible to consider a closer stress test. We have ordered a second troponin. Initial ECG Impression Date: September 29, 2018 Initial ECG Impression Time: 16:35 Initial ECG Rate: 80 Initial ECG Rhythm: Normal Sinus Initial ECG Intervals: Normal Initial ECG Impression: Normal Initial ECG Comparisson: Unchanged Comment No ST elevation or depression. Diagnostic Imaging Diagonstic Imaging: Xray Plain Films/CT/US/NM/MRI: chest Comments [facility], [place], [place] NAME: KIANA [facility]ZUELA [facility] REC#: [id number] PT STATUS: REG ER : 1980 PHYSICIAN: NAHID ZUNIGA MD ADMIT DATE: 09/29/18/ER Draft Date of Exam:09/29/18 CHEST 1 VIEW, AP/PA ONLY Clinical indication: Patient with nausea and left-sided jaw pain. Exam: Portable chest x-ray upright view. Comparisons: Chest x-ray dated 09/14/2018. Findings: Lungs/pleura: Lungs are clear. There is no pneumothorax. There is no pleural effusion. Mediastinum: Unremarkable. Pulmonary vasculature: Unremarkable. Heart: Unremarkable. Bones/extrathoracic soft tissue: There are hypertrophic spurs involving the thoracic spine. Impression: There is no radiographic evidence of acute cardiopulmonary process. Dictated on workstation # [id number] Dict: 09/29/18 1704 Trans: 09/29/18 1706 [facility] [id number] Interpreted by: MARTHA PATEL MD Electronically signed by: Reviewed: Reviewed by Me Departure Impression Primary Impression: Chest pain Qualified Codes: R07.9 - Chest pain, unspecified Additional Impressions: Jaw pain Dental caries Disposition: HOME, SELF-CARE Condition: Stable Departure-Patient Inst. Decision time for Depature: 18:54 Referrals: DAVID THURSTON APRN (PCP) Primary Care Physician ANDREA RINCON MD (Family) Primary Care Physician Patient Instructions: Chest Pain (DC) Add. 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 Keep your scheduled stress test for next Thursday. Return to the nearest ER if you begin to have unrelenting chest pain, nausea, shortness of breath or other worrisome symptoms. All discharge instructions reviewed with patient and/or family. Voiced understanding. Scripts Amoxicillin (Amoxicillin) 500 Mg Capsule 500 MG PO TID, #21 CAP 0 Refills Prov: NAHID ZUNIGA 09/29/18 NAHID ZUNIGA September 29, 2018 16:40
[2018-09-29] MEDS ORDERED: NITROGLYCERIN 0.4 MG SL TABS BTL 25'S SL PRN (16:45)
[2018-09-29] MEDS ORDERED: ASPIRIN 81 MG CHEW (CHILDREN'S ASA) PO ONE (16:45)
[2018-09-29] MEDS ORDERED: ONDANSETRON 4 MG/2 ML (SDV) Z0FRAN IVP ONE (16:45)
--- NOTE | 2018-09-29 16:49 | NUR ---
LAB CONTACTED FOR BLOOD DRAW.
[2018-09-29 16:52] VITALS: BP 148/84
--- NOTE | 2018-09-29 16:54 | NUR ---
LAB HERE TO DRAW BLOOD.
[2018-09-29 16:59] VITALS: BP 105/61
--- NOTE | 2018-09-29 17:07 | Diagnostic Imaging Report ---
Clinical indication: Patient with nausea and left-sided jaw pain. Exam: Portable chest x-ray upright view. Comparisons: Chest x-ray dated 09/14/2018. Findings: Lungs/pleura: Lungs are clear. There is no pneumothorax. There is no pleural effusion. Mediastinum: Unremarkable. Pulmonary vasculature: Unremarkable. Heart: Unremarkable. Bones/extrathoracic soft tissue: There are hypertrophic spurs involving the thoracic spine. Impression: There is no radiographic evidence of acute cardiopulmonary process. Dictated by: Dictated on workstation # [id number]
[2018-09-29 17:09] LABS: BASOPHILS % (AUTO) 0 % (0-10); EOSINOPHILS # (AUTO) 0.2 10^3/uL (0.0-0.3); EOSINOPHILS % (AUTO) 2 % (0-10); HEMATOCRIT 37 % (35-52); HEMOGLOBIN 12.3 G/DL (11.5-16.0); LYMPHOCYTES # (AUTO) 1.6 X 10^3 (1.0-4.0); LYMPHOCYTES % (AUTO) 22 % (12-44); MEAN CORPUSCULAR HEMOGLOBIN 27 PG (25-34); MEAN CORPUSCULAR HGB CONC 33 G/DL (32-36); MEAN CORPUSCULAR VOLUME 81 FL (80-99); MEAN PLATELET VOLUME 9.8 FL (7.4-10.4); MONOCYTES # (AUTO) 0.8 X 10^3 (0.0-1.0); MONOCYTES % (AUTO) 10 % (0-12); NEUTROPHILS % (AUTO) 66 % (42-75); PLATELET COUNT 234 10^3/uL (130-400); RED CELL DISTRIBUTION WIDTH 13.4 % (10.0-14.5); WHITE BLOOD COUNT 7.6 10^3/uL (4.3-11.0)
[2018-09-29] MEDS ORDERED: morphine INJ 10 MG/ML 1ML (SYR OR VIAL) IVP STA (17:20)
[2018-09-29 17:26] LABS: INR 0.9 (0.8-1.4)
[2018-09-29 17:33] LABS: ALANINE AMINOTRANSFERASE 63 U/L (0-55); ALKALINE PHOSPHATASE 95 U/L (40-136); BILIRUBIN,TOTAL 0.3 MG/DL (0.1-1.0); BUN/CREATININE RATIO 19; CALCIUM 9.3 MG/DL (8.5-10.1); CARBON DIOXIDE 22 MMOL/L (21-32); CHLORIDE 104 MMOL/L (98-107); CREATININE SERUM 0.68 MG/DL (0.60-1.30); GFR ESTIMATED > 60; GLUCOSE 102 MG/DL (70-105); POTASSIUM 3.8 MMOL/L (3.6-5.0); SODIUM 140 MMOL/L (135-145); TOTAL PROTEIN 7.6 GM/DL (6.4-8.2)
[2018-09-29] MEDS ORDERED: AMOX500C2 PO (18:14)
--- NOTE | 2018-09-29 18:45 | NUR ---
patient moved to [facility] d/t joe warning
[2018-09-29 19:50] VITALS: BP 129/77
== END 2018-09-29 20:00 | disposition home or self-care (01) ==
LOC: EDUNIT# 15:29 → ER 15:31
DX: K02.9 Dental caries, unspecified (principal); R07.9 Chest pain, unspecified; M79.7 Fibromyalgia; E03.9 Hypothyroidism, unspecified; F32.9 Major depressive disorder, single episode, unspecified; Z77.22 Contact with and (suspected) exposure to environmental tobacco smoke (acute) (chronic); Z88.5 Allergy status to narcotic agent; Z91.040 Latex allergy status; Z88.8 Allergy status to other drugs, medicaments and biological substances; Z90.710 Acquired absence of both cervix and uterus; Z98.51 Tubal ligation status
CPT/HCPCS: 36415; 71045; 80053; 83735; 83874; 83880; 84484; 85025; 85610; 85730; 93005; 93041

== ENCOUNTER 2020-08-06 20:50 | Emergency (ER) | payer MEDICAID ==
[~2020-08-06] VITALS: Ht 157.5 cm; Wt 104.3 kg
[~2020-08-06 20:50] MED LIST changes: +AMIT25TA9; +AMOX500C2 PO; +DULO30CA49; +IBUP-1780 PO; +LEVO75TA6; +PREG75CA75
[2020-08-06] MEDS ORDERED: ASPIRIN 81 MG CHEW (CHILDREN'S ASA) PO ONE (21:15)
--- NOTE | 2020-08-06 21:39 | Diagnostic Imaging Report ---
EXAMINATION: Chest 1 view HISTORY: Chest pain COMPARISON: Chest radiograph 09/29/2018 FINDINGS: Heart size and pulmonary vasculature are normal. The lungs are clear without consolidation, pleural effusion, or pneumothorax. Degenerative changes of the thoracic spine. Osseous structures are otherwise intact. IMPRESSION: 1. No acute radiographic abnormality in the chest. Dictated by: Dictated on workstation # [id number]
--- NOTE | 2020-08-06 21:44 | ED Cardiac General ---
History of Present Illness General Chief Complaint: Head/Cervical Problems Stated Complaint: RT SIDE SHOULDER PAIN,LT SIDE ARM PAIN,SOA Nursing Triage Note: PT ARRIVED BY PRIVATE VEHICLE WITH CHIEF COMPLAINT OF HEADACHE/LIGHT SENSITIVITY, DIFFICULTY SEEING, DIFFICULTY BREATHING, LEFT ARM PAIN, AND FAINTING THURSDAY. PT STATED ONSET WAS THURSDAY WITH FIRST EPISODE WHEN SHE FAINTED. TODAY IT STARTED AROUND [id number]. PT IS ALERT, ORIENTED X 4 AND AMBULATORY ON ARRIVAL. PT WAS HOOKED UP TO PIPING MANAGER, VITALS WERE DONE, EKG WAS COMPLETED, IV WAS STARTED IN LEFT FOREARM. REPORT GIVEN TO PROVIDER. Source: patient Exam Limitations: no limitations (EDITH DE LEON,) History of Present Illness Date Seen by Provider: Aug 06, 2020 Time Seen by Provider: 21:39 Initial Comments Ms. Brizuela is a 40-year-old female who presented to the ED for left arm pain, blurred vision, and chest pain. She states she had an episode that began Thursday, 08/03 but resolved. She is here today for worsening symptoms. She has been having blurred vision, chest pain, left arm pain, shortness of breath since 1899 today. Did not take any medications prior to her arrival. She denies fevers/chills, nausea, vomiting, dysuria, hematuria. Timing/Duration: 1-3 hours Location: [facility] THEORETICAL PHYSICIST: No ASA po THEORETICAL PHYSICIST: No Associated Systoms: No Diaphoresis, No Fever/Chills, No Loss of Appetite; Shortness of Air (EDITH DE LEON,) Allergies and Home Medications Allergies Coded Allergies: acetaminophen (Verified Allergy, Unknown, 09/09/19) codeine (Verified Allergy, Unknown, 05/18/18) hydrocodone (Verified Allergy, Unknown, 05/18/18) latex (Verified Allergy, Unknown, 05/18/18) oseltamivir (Verified Allergy, Unknown, 05/18/18) tramadol (Verified Allergy, Unknown, 09/09/19) Home Medications Amoxicillin 500 Mg Capsule, 500 MG PO TID Prescribed by: NAHID ZUNIGA on 09/29/18 181 Hydroxyzine Pamoate 25 Mg Capsule, 25-50 MG PO Q6H Prescribed by: LUIS ANGEL LUJAN on 09/14/18 1637 Ibuprofen 800 Mg Tablet, 800 MG PO Q8H PRN for PAIN Prescribed by: KATHARINE SHARP on 07/04/191748 Ondansetron 4 Mg Tab.rapdis, 4 MG PO Q6H PRN for NAUSEA/VOMITING Prescribed by: NAHID ZUNIGA on 05/18/18 0959 Ondansetron 4 Mg Tab.rapdis, 4 MG PO tid PRN for NAUSEA/VOMITING-1ST LINE Prescribed by: KATHARINE SHARP on 07/04/191748 Patient Home Medication List Home Medication List Reviewed: Yes (EDITH DE LEON,) Home Medication List Reviewed: Yes (JUDITH JONES MD) Review of Systems Review of Systems Constitutional: No chills, No fever EENTM: Blurred Vision, Other (sensitivity to light) Respiratory: Denies Cough; Shortness of Air Cardiovascular: Chest Pain Gastrointestinal: Denies Nausea, Denies Vomiting Genitourinary: No Symptoms Reported Musculoskeletal: No joint pain; muscle weakness Skin: No other Psychiatric/Neurological: Numbness Endocrine: No Symptoms Reported Hematologic/Lymphatic: No Symptoms Reported (EDITH DE LEON,) Cardiovascular: Chest Pain; Denies Edema; Syncope Gastrointestinal: Denies Abdominal Pain Musculoskeletal: No back pain; muscle pain Psychiatric/Neurological: Numbness (JUDITH JONES MD) All Other Systems Reviewed Negative Unless Noted: Yes (JUDTIH JONES MD) Past Fbdvsdh-Qjxmmg-Rxfzef Hx Past Med/Social Hx: Reviewed Nursing Past Med/Soc Hx (EDITH DE LEON,) Past Med/Social Hx: Reviewed Nursing Past Med/Soc Hx (JUDITH JONES MD) Patient Social History Alcohol Use: Denies Use Smoking Status: Never a Smoker 2nd Hand Smoke Exposure: Yes Recent Infectious Disease Expo: No Recent Hopitalizations: No (EDITH DE LEON,) Immunizations Up To Date Tetanus Booster (TDap): More than 5yrs PED Vaccines UTD: Yes (EDITH DE LEON,) Seasonal Allergies Seasonal Allergies: No (EDITH DE LEON,) Past Medical History Surgeries: Yes Section, Gallbladder, Hysterectomy, Tubal Ligation Respiratory: Yes (FREQUENT ASTHMATIC BRONCHITIS) Cardiac: No Neurological: No PHYSICIAN SURGEON 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: Hysterectomy Genitourinary: No Gastrointestinal: No Musculoskeletal: Yes Arthritis, Fibromyalgia Endocrine: Yes Hypothyroidsim HEENT: No Cancer: No Psychosocial: Yes Depression Integumentary: No Blood Disorders: No (EDITH DE LEON,) Family Medical History Reviewed Nursing Family Hx (JUDITH JONES MD) Heart Disease (EDITH DE LEON,) Physical Exam Vital Signs Vital Signs - First Documented 08/06/20 21:00 Temp 36.3 Pulse 98 Resp 21 B/P (MAP) 129/69 (89) Pulse Ox 96 O2 Delivery Room Air (JUDITH JONES MD) Vital Signs Capillary Refill : Less Than 3 Seconds (EDITH DE LEON,) Height, Weight, BMI Height: 5'2.00" Weight: 247lbs. oz. 112.649132sc; 42.00 BMI Method:Stated General Appearance: WD/WN, Mild Distress HEENT: PERRL/EOMI, Pharynx Normal Neck: Non Tender, Supple Respiratory: Lungs Clear, Normal Breath Sounds Cardiovascular: Regular Rate, Rhythm, No Murmur Gastrointestinal: Normal Bowel Sounds, Non Tender, Soft Extremity: No Calf Tenderness, Pedal Edema Neurologic/Psychiatric: Alert, Oriented x3 Skin: Normal Color, Warm/Dry (EDITH DE LEON,) General Appearance: WD/WN, Mild Distress HEENT: PERRL/EOMI, Pharynx Normal Neck: Non Tender, Supple Respiratory: Lungs Clear, Normal Breath Sounds Cardiovascular: Regular Rate, Rhythm, No Murmur Gastrointestinal: No Pulsatile Mass, Non Tender, Soft Extremity: Non Tender, No Calf Tenderness Neurologic/Psychiatric: Alert, Oriented x3, Normal Mood/Affect; No Abnormal Gait, No Motor Weakness Skin: Normal Color, Warm/Dry (JUDITH JONES MD) Progress/Results/Core Measures Results/Orders Lab Results Laboratory Tests Test 08/06/20 21:20 08/06/20 23:25 Range/Units White Blood Count 10.0 4.3-11.0 10^3/uL Red Blood Count 4.29 L 4.35-5.85 10^6/uL Hemoglobin 11.8 11.5-16.0 G/DL Hematocrit 37 35-52 % Mean Corpuscular Volume 85 80-99 FL Mean Corpuscular Hemoglobin 28 25-34 PG Mean Corpuscular Hemoglobin Concent 32 32-36 G/DL Red Cell Distribution Width 13.1 10.0-14.5 % Platelet Count 274 130-400 10^3/uL Mean Platelet Volume 9.4 7.4-10.4 FL Immature Granulocyte % (Auto) 1 % Neutrophils (%) (Auto) 66 42-75 % Lymphocytes (%) (Auto) 24 12-44 % Monocytes (%) (Auto) 7 0-12 % Eosinophils (%) (Auto) 2 0-10 % Basophils (%) (Auto) 1 0-10 % Neutrophils # (Auto) 6.6 1.8-7.8 X 10^3 Lymphocytes # (Auto) 2.4 1.0-4.0 X 10^3 Monocytes # (Auto) 0.7 0.0-1.0 X 10^3 Eosinophils # (Auto) 0.2 0.0-0.3 10^3/uL Basophils # (Auto) 0.1 0.0-0.1 10^3/uL Immature Granulocyte # (Auto) 0.1 0.0-0.1 10^3/uL Prothrombin Time 12.3 12.2-14.7 SEC INR Comment 0.9 0.8-1.4 Activated Partial Thromboplast Time 26 24-35 SEC D-Dimer 0.27 0.00-0.49 UG/ML Sodium Level 139 135-145 MMOL/L Potassium Level 4.0 3.6-5.0 MMOL/L Chloride Level 103 98-107 MMOL/L Carbon Dioxide Level 27 21-32 MMOL/L Anion Gap 9 5-14 MMOL/L Blood Urea Nitrogen 19 H 7-18 MG/DL Creatinine 0.74 0.60-1.30 MG/DL Estimat Glomerular Filtration Rate > 60 BUN/Creatinine Ratio 26 Glucose Level 104 70-105 MG/DL Calcium Level 8.8 8.5-10.1 MG/DL Corrected Calcium 9.0 8.5-10.1 MG/DL Magnesium Level 2.0 1.6-2.4 MG/DL Total Bilirubin 0.2 0.1-1.0 MG/DL Aspartate Amino Transf (AST/SGOT) 13 5-34 U/L Alanine Aminotransferase (ALT/SGPT) 13 0-55 U/L Alkaline Phosphatase 124 40-136 U/L Myoglobin 21.0 10.0-92.0 NG/ML Troponin I < 0.30 < 0.30 <0.30 NG/ML Total Protein 7.6 6.4-8.2 GM/DL Albumin 3.8 3.2-4.5 GM/DL (JUDITH JONES MD) My Orders Orders - JUDITH JONES MD Cbc With Automated Diff (08/06/20 21:02) Magnesium (08/06/20 21:02) Chest 1 View Ap/Pa Only (08/06/20 21:02) Ekg Tracing (08/06/20 21:02) Comprehensive Metabolic Panel (08/06/20 21:02) Myoglobin Serum (08/06/20 21:02) Protime With Inr (08/06/20 21:02) Partial Thromboplastin Time (08/06/20 21:02) O2 (08/06/20 21:02) Monitor-Rhythm Ecg Trace Only (08/06/20 21:02) Lipid Panel (08/07/20 06:00) Aspirin Chewable Tablet (Baby Aspirin Ch (08/06/20 21:15) Ed Iv/Invasive Line Start (08/06/20 21:02) Fibrin Degradation Products (08/06/20 21:02) Troponin I Fs (08/06/20 21:02) Ketorolac Injection (Toradol Injection) (08/06/20 21:50) Troponin I Fs (08/06/20 23:16) (JUDITH JONES MD) Medications Given in ED Current Medications Medications Dose Ordered Sig/Tylor Route Start Time Stop Time Status Last Admin Dose Admin Aspirin 324 mg ONCE ONCE PO 08/06/20 21:15 08/06/20 21:16 DC 08/06/20 21:30 324 MG (JUDITH JONES MD) Vital Signs/I&O 08/06/20 21:00 Temp 36.3 Pulse 98 Resp 21 B/P (MAP) 129/69 (89) Pulse Ox 96 O2 Delivery Room Air (JUDITH JONES MD) Blood Pressure Mean: 89 Progress Progress Note : Time: 21:45 Progress Note Due to vague symptoms, will initiate chest pain protocol. ASA given to patient. EKG unchanged from prior. CBC, CMP, troponin pending. CXR taken, awaiting read. 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 (EDITH DE LEON,) Progress Note : Progress Note I have seen and evaluated the patient and agree with above except as indicated. I have directed the plan of care. Patient is here with vague complaints including left arm numbness/pain with report of strong family history of cardiac disease. Also has some photophobia. Onset of symptoms at 1900 tonight but also had symptoms on Thursday which may have included a syncopal episode. States that she has had these before. Has had right-sided nerve problems for quite some time and that is chronic. Also has had previous left-sided weakness with negative work-up. No significant breathing problems. Patient brought here by h er brother. She is ambulating well without balance difficulties or weakness. Moving all extremities without any discoordination. Evaluation as above. Plan for chest pain protocol. Aspirin 324 mg p.o. given. Monitor patient. 2149: Toradol 30 mg IV ordered for possible migraine variant as EKG is normal. Few labs still pending. Monitor patient. 2319: Repeat troponin ordered. Still without chest pain. Initial sets negative. Monitor patient. 0014: Repeat troponin negative. Patient feeling better and states she is okay and ready to go home. Discharged home with return precautions. Patient verbalized understanding of instructions and agreement with plan. (JUDITH JONES MD) Initial ECG Impression Date: Aug 06, 2020 Initial ECG Impression Time: 21:22 Initial ECG Rate: 86 Initial ECG Rhythm: Normal Sinus Initial ECG Impression: Normal Initial ECG Comparisson: Unchanged Comment Sinus rhythm with normal axis. No evidence of ST elevation CT. Similar to previous of 09/29/2018. Interpreted by me. (JUDITH JONES MD) Diagnostic Imaging Diagonstic Imaging: Xray Plain Films/CT/US/NM/MRI: chest Comments NAME: K[facility]NA [facility]UELA [facility] REC#: [id number] PT STATUS: REG ER : 1980 PHYSICIAN: JUDITH JONES MD ADMIT DATE: 08/06/20/ER FS Draft Date of Exam:08/06/20 CHEST 1 VIEW AP/PA ONLY EXAMINATION: Chest 1 view HISTORY: Chest pain COMPARISON: Chest radiograph 09/29/2018 FINDINGS: Heart size and pulmonary vasculature are normal. The lungs are clear without consolidation, pleural effusion, or pneumothorax. Degenerative changes of the thoracic spine. Osseous structures are otherwise intact. IMPRESSION: 1. No acute radiographic abnormality in the chest. Dictated on workstation # [id number] Dict: 08/06/202134 Trans: 08/06/202137 [facility] [id number] Interpreted by: MEGHAN ALANIS DO Electronically signed by: (JUDITH JONES MD) Departure Impression Primary Impression: Chest pain Qualified Codes: R07.9 - Chest pain, unspecified Additional Impression: Migraine equivalent Disposition: HOME, SELF-CARE Condition: Improved Departure-Patient Inst. Decision time for Depature: 00:18 (JUDITH JONES MD) Referrals: [facility] [place] (PCP/Family) Primary Care Physician BRITTANY ESTEBAN MD Patient Instructions: Migraines (DC), Chest Pain (DC) Add. Discharge Instructions: All discharge instructions reviewed with patient and/or family. Voiced understanding. It is very important that you follow-up with primary care physician and follow- up with the advanced solutions architect as listed above. Call tomorrow to make appointments for first available. You need to follow-up and get restarted on appropriate medications. Return for worse pain, fever, vomiting, weakness, breathing problems or other concerns as needed. EDITH DE LEON, Aug 06, 2020 21:44 JUDITH JONES MD Aug 06, 2020 21:51
[2020-08-06 21:45] LABS: HEMATOCRIT 37 % (35-52); HEMOGLOBIN 11.8 G/DL (11.5-16.0); MEAN CORPUSCULAR HEMOGLOBIN 28 PG (25-34)
[2020-08-06 21:46] LABS: BASOPHILS # (AUTO) 0.1 10^3/uL (0.0-0.1); BASOPHILS % (AUTO) 1 % (0-10); EOSINOPHILS # (AUTO) 0.2 10^3/uL (0.0-0.3); EOSINOPHILS % (AUTO) 2 % (0-10); LYMPHOCYTES # (AUTO) 2.4 X 10^3 (1.0-4.0); LYMPHOCYTES % (AUTO) 24 % (12-44); MEAN CORPUSCULAR HGB CONC 32 G/DL (32-36); MEAN CORPUSCULAR VOLUME 85 FL (80-99); MEAN PLATELET VOLUME 9.4 FL (7.4-10.4); MONOCYTES # (AUTO) 0.7 X 10^3 (0.0-1.0); MONOCYTES % (AUTO) 7 % (0-12); NEUTROPHILS # (AUTO) 6.6 X 10^3 (1.8-7.8); NEUTROPHILS % (AUTO) 66 % (42-75); PLATELET COUNT 274 10^3/uL (130-400)
[2020-08-06] MEDS ORDERED: KETOROLAC 30 MG/ML VIAL IVP STA (21:50)
[2020-08-06 21:56] LABS: BUN/CREATININE RATIO 26; CALCIUM 8.8 MG/DL (8.5-10.1); CARBON DIOXIDE 27 MMOL/L (21-32); CHLORIDE 103 MMOL/L (98-107); CREATININE SERUM 0.74 MG/DL (0.60-1.30); GFR ESTIMATED > 60; GLUCOSE 104 MG/DL (70-105); SODIUM 139 MMOL/L (135-145)
[2020-08-06 21:57] LABS: ALANINE AMINOTRANSFERASE 13 U/L (0-55); ALBUMIN 3.8 GM/DL (3.2-4.5); ALKALINE PHOSPHATASE 124 U/L (40-136); BILIRUBIN,TOTAL 0.2 MG/DL (0.1-1.0); TOTAL PROTEIN 7.6 GM/DL (6.4-8.2)
[2020-08-06 22:17] LABS: INR 0.9 (0.8-1.4); PROTHROMBIN TIME PATIENT 12.3 SEC (12.2-14.7)
[2020-08-07 00:25] VITALS: BP 121/73
== END 2020-08-07 00:25 | disposition home or self-care (01) ==
LOC: EDUNIT# 20:50 → ER FS 20:51
DX: R07.9 Chest pain, unspecified (principal); G43.109 Migraine with aura, not intractable, without status migrainosus; M79.602 Pain in left arm; J45.909 Unspecified asthma, uncomplicated; Z77.22 Contact with and (suspected) exposure to environmental tobacco smoke (acute) (chronic); Z88.5 Allergy status to narcotic agent; Z88.8 Allergy status to other drugs, medicaments and biological substances
CPT/HCPCS: 36415; 71045; 80053; 83735; 83874; 84484; 85025; 85379; 85610; 85730; 93005; 93041

== ENCOUNTER 2020-10-19 05:33 | Emergency (ER) | payer MEDICAID ==
[~2020-10-19] VITALS: Ht 157.5 cm; Wt 99.8 kg
[2020-10-19 05:42] VITALS: BP 146/82
[2020-10-19] MEDS ORDERED: IBUP-1780 PO (06:00)
[2020-10-19] MEDS ORDERED: NS IV 1000 ML 1,000 ML IV SCH (06:00)
--- NOTE | 2020-10-19 06:03 | ED Upper Extremity ---
General Chief Complaint: Upper Extremity Stated Complaint: LEFT HAND SWELLING/HURTING Nursing Triage Note: PT AMBULATE TO ROOM FS02 WITH C/O LEFT HAND PAIN. PT STATES HAND HAS HURT X2 DAYS AND STARTED SWELLING TODAY. PT STATES SHE HAS NOT SEEN HER PCP FOR THIS C/O. PT STATES STATES SHE HAS BEEN TAKING BACLOFEN AND MILOXICAM FOR THE PAIN. PT STATES SHE MAY HAVE PUNCHED SOMETHING WHILE SLEEPING. Nursing Sepsis Screen: No Definite Risk Source: patient History of Present Illness Date Seen by Provider: Oct 19, 2020 Time Seen by Provider: 05:59 Initial Comments 40-year-old female presents with pain in her left middle finger, worse with motion. Denies any injury or trauma. Some mild swelling. Hurts in [address] in the back of her hand. Denies similar symptoms in the past. No redness and no warmth and pain not in the joint. Present for a couple weeks, then worse the last 2 days. Has not seen her PCP. Allergies and Home Medications Allergies Coded Allergies: acetaminophen (Verified Allergy, Unknown, 09/09/19) codeine (Verified Allergy, Unknown, 05/18/18) hydrocodone (Verified Allergy, Unknown, 05/18/18) latex (Verified Allergy, Unknown, 05/18/18) oseltamivir (Verified Allergy, Unknown, 05/18/18) tramadol (Verified Allergy, Unknown, 09/09/19) Home Medications Amoxicillin 500 Mg Capsule, 500 MG PO TID Prescribed by: NAHID ZUNIGA on 09/29/18 1814 Hydroxyzine Pamoate 25 Mg Capsule, 25-50 MG PO Q6H Prescribed by: LUIS ANGEL LUJAN on 09/14/18 1637 Ibuprofen 800 Mg Tablet, 800 MG PO Q8H PRN for PAIN Prescribed by: KATHARINE SHARP on 07/04/19 1749 Ondansetron 4 Mg Tab.rapdis, 4 MG PO Q6H PRN for NAUSEA/VOMITING Prescribed by: NAHID ZUNIGA on 05/18/18 0959 Ondansetron 4 Mg Tab.rapdis, 4 MG PO tid PRN for NAUSEA/VOMITING-1ST LINE Prescribed by: KATHARINE SHARP on 07/04/19 1749 Patient Home Medication List Home Medication List Reviewed: Yes Review of Systems Constitutional: no symptoms reported Musculoskeletal: No back pain, No joint pain, No joint swelling, No muscle pain; other (pain left hand Middle finger) Skin: No change in color, No lesions, No lumps, No rash Psychiatric/Neurological: Denies Numbness, Denies Paresthesia Past Jmzlrgv-Pkbalb-Xezyuf Hx Past Med/Social Hx: Reviewed Nursing Past Med/Soc Hx Patient Social History Alcohol Use: Denies Use Smoking Status: Never a Smoker 2nd Hand Smoke Exposure: Yes Recent Infectious Disease Expo: No Recent Hopitalizations: No Immunizations Up To Date Tetanus Booster (TDap): More than 5yrs PED Vaccines UTD: Yes Seasonal Allergies Seasonal Allergies: No Past Medical History Surgeries: Yes Section, Gallbladder, Hysterectomy, Tubal Ligation Respiratory: Yes (FREQUENT ASTHMATIC BRONCHITIS) Cardiac: No Neurological: No 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 oz. 112.722647ob; 40.00 BMI Method:Stated General Appearance: WD/WN, no apparent distress Hand: normal inspection, no evidence of injury, normal ROM, Left, soft tissue tenderness, swelling Neurologic/Tendon: normal motor functions, normal tendon functions Neurologic/Psychiatric: No motor weakness, No sensory deficit Progress/Results/Core Measures Results/Orders My Orders Orders - VAMSHI BLANCO DO Ns Iv 1000 Ml (Sodium Chloride 0.9%) (10/19/20 06:00) Vital Signs/I&O 10/19/20 05:42 Temp 36.1 Pulse 13 Resp 17 B/P (MAP) 146/82 (103) O2 Delivery Room Air Blood Pressure Mean: 103 Departure Impression Primary Impression: Finger tendinitis Disposition: 01 HOME, SELF-CARE Condition: Stable Departure-Patient Inst. Referrals: [facility] (PCP/Family) Primary Care Physician Patient Instructions: Tendonitis (DC) Scripts Ibuprofen (Ibuprofen) 800 Mg Tablet 800 MG PO Q8H PRN for PAIN, #30 TAB 0 Refills Prov: ROVENSTINE,VAMSHI L DO 10/19/20 VAMSHI BLANCO DO Oct 19, 2020 06:03
== END 2020-10-19 06:08 | disposition home or self-care (01) ==
LOC: EDUNIT# 05:33 → ER FS 05:38
DX: M77.8 Other enthesopathies, not elsewhere classified (principal); J45.909 Unspecified asthma, uncomplicated; Z77.22 Contact with and (suspected) exposure to environmental tobacco smoke (acute) (chronic)
CPT/HCPCS: 99282

== ENCOUNTER 2021-01-24 16:31 | Emergency (ER) | payer MEDICAID ==
[~2021-01-24] VITALS: Ht 157.4 cm; Wt 99.8 kg
--- NOTE | 2021-01-24 17:10 | ED General ---
General Chief Complaint: Respiratory Problems Stated Complaint: FATIGUE Nursing Triage Note: Patient presents to the ED with c/o shortness of breath, cough, dizziness, and nausea. Patient reports that she started feeling ill Thursday evening with shortness of breath and cough. She states she has woke up several times soaked in sweat. She also reports nausea, dizziness, and decreased urination. History of Present Illness Date Seen by Provider: Jan 24, 2021 Time Seen by Provider: 16:30 Initial Comments 2-year-old female presents with 4-day history of cough and chest congestion. States her mother is sick with the same thing a few days prior. She saw her primary care provider who did not test her for Covid but states that she had an upper respiratory infection. Patient denies any history of heart or lung problems. States has had subjective fever with some nausea without vomiting. Denies abdominal pain or chest pain. Allergies and Home Medications Allergies Coded Allergies: acetaminophen (Verified Allergy, Unknown, 09/09/19) codeine (Verified Allergy, Unknown, 05/18/18) hydrocodone (Verified Allergy, Unknown, 05/18/18) latex (Verified Allergy, Unknown, 05/18/18) oseltamivir (Verified Allergy, Unknown, 05/18/18) tramadol (Verified Allergy, Unknown, 09/09/19) Patient Home Medication List Home Medication List Reviewed: Yes Amitriptyline HCl (Amitriptyline HCl) 25 Mg Tablet, (Reported) Entered as Reported by: SULEMAN EPSTEIN on 07/04/19 1601 Amoxicillin (Amoxicillin) 500 Mg Capsule, 500 MG PO TID Prescribed by: NAHID ZUNIGA on 09/29/18 181 Duloxetine HCl (Duloxetine HCl) 30 Mg Capsule.dr (Reported) Entered as Reported by: SULEMAN EPSTEIN on 07/04/19 1601 Hydroxyzine Pamoate (Vistaril) 25 Mg Capsule, 25-50 MG PO Q6H Prescribed by: LUIS ANGEL LUJAN on 09/14/18 1637 Ibuprofen (Ibuprofen) 800 Mg Tablet, 800 MG PO Q8H PRN for PAIN Prescribed by: KATHARINE SHARP on 07/04/19 1749 Ibuprofen (Ibuprofen) 800 Mg Tablet, 800 MG PO Q8H PRN for PAIN Prescribed by: VAMSHI BLANCO on 10/19/20 0600 Levothyroxine Sodium (Levothyroxine Sodium) 75 Mcg Tablet, (Reported) Entered as Reported by: SULEMAN EPSTEIN on 07/04/19 1601 Ondansetron (Ondansetron Odt) 4 Mg Tab.rapdis, 4 MG PO Q6H PRN for NAUSEA/VOMITING Prescribed by: NAHID ZUNIGA on 05/18/18 0959 Ondansetron (Ondansetron Odt) 4 Mg Tab.rapdis, 4 MG PO tid PRN for NAUSEA/VOMITING-1ST LINE Prescribed by: KATHARINE SHARP on 07/04/19 1749 Pregabalin (Pregabalin) 75 Mg Capsule, (Reported) Entered as Reported by: SULEMAN EPSTEIN on 07/04/19 1601 Review of Systems Review of Systems Constitutional: chills, fever, malaise EENTM: nose congestion; No ear pain, No throat pain Respiratory: cough, short of breath; No wheezing Cardiovascular: No chest pain, No edema, No palpitations Gastrointestinal: No abdominal pain; loss of appetite, nausea; No vomiting Musculoskeletal: No back pain, No joint pain, No neck pain Skin: No change in color, No rash Psychiatric/Neurological: Denies Headache, Denies Numbness Past Yxigcik-Pszxxa-Gwtruf Hx Patient Social History Tobacco Use?: No Use of E-Cig and/or Vaping dev: No Substance use?: No Alcohol Use?: No Pt feels they are or have been: No Immunizations Up To Date Tetanus Booster (TDap): More than 5yrs PED Vaccines UTD: Yes Seasonal Allergies Seasonal Allergies: No Past Medical History Surgeries: Yes Section, Gallbladder, Hysterectomy, Tubal Ligation Respiratory: Yes (FREQUENT ASTHMATIC BRONCHITIS) Cardiac: No Neurological: No GANG BOSS History: Hysterectomy Genitourinary: No Gastrointestinal: No Musculoskeletal: Yes Arthritis, Fibromyalgia Endocrine: Yes Hypothyroidsim HEENT: No Cancer: No Psychosocial: Yes Depression Integumentary: No Blood Disorders: No Family Medical History Heart Disease Physical Exam Vital Signs Vital Signs - First Documented 01/24/21 16:34 Temp 37.6 Pulse 113 Resp 18 B/P (MAP) 129/70 (89) Pulse Ox 100 O2 Delivery Room Air Capillary Refill : Less Than 3 Seconds Height, Weight, BMI Height: 5'2.00" Weight: 247lbs. oz. 112.173656fd; 40.00 BMI Method:Stated General Appearance: No Apparent Distress, WD/WN HEENT: PERRL/EOMI, Normal ENT Inspection Neck: Non Tender, Supple Respiratory: Chest Non Tender, Lungs Clear, Normal Breath Sounds Cardiovascular: Regular Rate, Rhythm, No Edema, No JVD Gastrointestinal: Normal Bowel Sounds, Non Tender Back: Normal Inspection, No CVA Tenderness Extremity: Normal Capillary Refill, Non Tender Neurologic/Psychiatric: Alert, Oriented x3, No Motor/Sensory Deficits Progress/Results/Core Measures Suspected Sepsis SIRS Temperature: Pulse: 113 Respiratory Rate: 18 Laboratory Tests 01/24/21 16:56: Blood Pressure 129 /70 Mean: 89 Laboratory Tests 01/24/21 16:56: Results/Orders Lab Results Laboratory Tests Test 01/24/21 16:56 Range/Units My Orders Orders - VAMSHI BLANCO DO Chest 1 View Ap/Pa Only (01/24/21 16:48) Cbc With Automated Diff (01/24/21 16:48) Comprehensive Metabolic Panel (01/24/21 16:48) Crp Fs (01/24/21 16:48) Covid 19 Inhouse Test (01/24/21 16:48) Vital Signs/I&O 01/24/21 16:34 Temp 37.6 Pulse 113 Resp 18 B/P (MAP) 129/70 (89) Pulse Ox 100 O2 Delivery Room Air Capillary Refill : Less Than 3 Seconds Blood Pressure Mean: 89 Departure Impression Primary Impression: Bronchitis Disposition: 01 HOME, SELF-CARE Condition: Stable Departure-Patient Inst. Decision time for Depature: 17:22 Referrals: [facility] (PCP/Family) Primary Care Physician Patient Instructions: Bronchitis, Adult ED Add. Discharge Instructions: Follow up with your PCP in 1 week if not improving, sooner if worse. You should get a call (TOMORROW) from the [facility] lab regarding your result on the Covid-19 testing done in the ER today. For now you are advised to self isolate at home. Take the following vitamins as instructed for the next 30 days: Vitamin C 1,000mg twice daily Vitamin D 5,000iu daily Zinc 100mg daily Melatonin 10mg at night All discharge instructions reviewed with patient and/or family. Voiced understanding. Scripts Prednisone (Prednisone) 50 Mg Tab 50 MG PO DAILY, #7 TAB Prov: VAMSHI BLANCO DO 01/24/21 Albuterol Sulfate (PROAIR HFA) 1 Puff Puff 2 PUFF IH Q4H for Cough, #1 PUFF 1 Refill 1 PUFF = 90 MCG Prov: VAMSHI BALNCO DO 01/24/21 VAMSHI BLANCO DO Jan 24, 2021 17:10
[2021-01-24 17:22] LABS: WHITE BLOOD COUNT 5.4 10^3/uL (4.3-11.0)
[2021-01-24 17:23] LABS: BASOPHILS % (AUTO) 0 % (0-10); EOSINOPHILS % (AUTO) 0 % (0-10); HEMATOCRIT 43 % (35-52); HEMOGLOBIN 13.9 g/dL (11.5-16.0); LYMPHOCYTES # (AUTO) 1.8 X 10^3 (1.0-4.0); LYMPHOCYTES % (AUTO) 33 % (12-44); MEAN CORPUSCULAR HEMOGLOBIN 27 pg (25-34); MEAN CORPUSCULAR HGB CONC 32 g/dL (32-36); MEAN CORPUSCULAR VOLUME 83 fL (80-99); MEAN PLATELET VOLUME 9.9 fL (9.0-12.2); MONOCYTES # (AUTO) 0.6 X 10^3 (0.0-1.0); MONOCYTES % (AUTO) 11 % (0-12); NEUTROPHILS % (AUTO) 56 % (42-75); PLATELET COUNT 200 10^3/uL (130-400)
[2021-01-24] MEDS ORDERED: PRD50T PO (17:24)
[2021-01-24] MEDS ORDERED: RT-ALBUINH IH (17:24)
[2021-01-24 17:25] LABS: ALBUMIN 3.8 GM/DL (3.2-4.5); BILIRUBIN,TOTAL 0.2 MG/DL (0.1-1.0); CALCIUM 8.7 MG/DL (8.5-10.1); CREATININE SERUM 0.78 MG/DL (0.60-1.30); TOTAL PROTEIN 7.7 GM/DL (6.4-8.2)
--- NOTE | 2021-01-24 17:26 | Diagnostic Imaging Report ---
HISTORY: Cough and congestion, shortness of breath. COMPARISON: 08/06/2020. TECHNIQUE: Frontal view of the chest. FINDINGS: Lung volumes are normal. There is subtle increased airspace opacity in the right midlung when compared to the prior exam. The cardiac silhouette is normal in size. There is no pleural effusion or pneumothorax. IMPRESSION: Subtle increased airspace opacity in the right midlung when compared to the prior exam. This could represent an early infiltrate. Dictated by: Dictated on workstation # [id number]
[2021-01-24 18:15] VITALS: BP 129/70
== END 2021-01-24 17:54 | disposition home or self-care (01) ==
LOC: EDUNIT# 16:31 → ER FS 16:32
DX: U07.1 COVID-19 (principal); F32.9 Major depressive disorder, single episode, unspecified; E03.9 Hypothyroidism, unspecified; Z79.890 Hormone replacement therapy; Z79.899 Other long term (current) drug therapy
CPT/HCPCS: 36415; 71045; 80053; 85025; 86141; 87636

== ENCOUNTER 2021-02-14 18:28 | Emergency (ER) | payer MEDICAID ==
[~2021-02-14] VITALS: Ht 157 cm; Wt 97.0 kg
[~2021-02-14 18:28] MED LIST changes: +PRD50T PO; +RT-ALBUINH IH
--- NOTE | 2021-02-14 18:49 | ED Headache ---
General Chief Complaint: Head/Cervical Problems Stated Complaint: UNABLE TO SEE,CHILLS,MIGRIANE Nursing Triage Note: HEADACHE FOR 2 DAYS AND REPORT SHE CANT SEE OUT OF HER LEFT EYE BUT HAS NOT SEEKED MEDICAL CARE UNIT; TONIGHT BECAUSE SHE HAS BEEN HELPING HER MOM IN [place]. PT WAS SITTING OUT ON THE [place] OUTSIDE PLAYING ON HER PHONE WHEN THIS RN WENT TO GET HER. SHE REPORTS SHE HAS OCULAR MIGRAINES. PT ALSO DROVE HERE. Source: patient History of Present Illness Date Seen by Provider: Feb 14, 2021 Time Seen by Provider: 18:41 Initial Comments 41-year-old female presenting with complaints of 2 to 3 days of severe left- sided headache and decreased vision from her eye. She states that she has had similar problems since December and it has been worse since she her brother . She has a lot of anxiety and stress. She was concerned that she may have black mold in her apartment where she is living. She had tried bending the night with her mom and it did not improve and then at night with her sister and it still did not improve. Tonight she was still having severe headache and decreased vision from the left eye so she came here to the emergency department. She reports waiting until May when she had her 1st available appointment with a neurologist. She has had nausea but no vomiting. She has not been in to see the clinic or evaluated for this episode. She denies having a CT scan or imaging of her brain recently since these headaches started in December. She did recently have Covid in early January. She has had chills and subjective fever ever since she had Covid. She still has mild non-productive cough. She reports this feels similar to the Ocular Migraines she has been having since December but this one was lasting longer than usual. No numbness, weakness in extremities or face. Pressure behind left eye. Severity/Quality: severe Location: parietal (left side of head and decreased vision left eye) Prior Headaches/Recent Trauma: frequent headaches Modifying Factors: worse with exposure to light Associated Symptoms: No confusion; fatigue; No facial pain; fever/chills (subjective for over a month); No loss of consciousness; nausea/vomiting (nausea but no vomiting); No nasal congestion, No nasal drainage, No numbness in legs/feet, No rash, No seizures, No sinus infection, No stiff neck; vision changes (decreased vision with left eye which is consistent with previous migraine headaches); No weakness Allergies and Home Medications Allergies Coded Allergies: acetaminophen (Verified Allergy, Unknown, 09/09/19) codeine (Verified Allergy, Unknown, 05/18/18) hydrocodone (Verified Allergy, Unknown, 05/18/18) latex (Verified Allergy, Unknown, 05/18/18) oseltamivir (Verified Allergy, Unknown, 05/18/18) tramadol (Verified Allergy, Unknown, 09/09/19) Patient Home Medication List Home Medication List Reviewed: Yes Albuterol Sulfate (Proair Hfa) 1 Puff Puff, 2 PUFF IH Q4H Prescribed by: VAMSHI BLANCO on 01/24/21 1724 Amitriptyline HCl (Amitriptyline HCl) 25 Mg Tablet, (Reported) Entered as Reported by: SULEMAN EPSTEIN on 07/04/19 1601 Amoxicillin (Amoxicillin) 500 Mg Capsule, 500 MG PO TID Prescribed by: NAHID ZUNIGA on 09/29/18 1814 Duloxetine HCl (Duloxetine HCl) 30 Mg Capsule., (Reported) Entered as Reported by: SULEMAN EPSTEIN on 07/04/19 1601 Hydroxyzine Pamoate (Vistaril) 25 Mg Capsule, 25-50 MG PO Q6H Prescribed by: LUIS ANGEL LUJAN on 09/14/18 1637 Ibuprofen (Ibuprofen) 800 Mg Tablet, 800 MG PO Q8H PRN for PAIN Prescribed by: KATHARINE SHARP on 07/04/19 1749 Ibuprofen (Ibuprofen) 800 Mg Tablet, 800 MG PO Q8H PRN for PAIN Prescribed by: VAMSHI BLANCO on 10/19/20 0600 Levothyroxine Sodium (Levothyroxine Sodium) 75 Mcg Tablet, (Reported) Entered as Reported by: SULEMAN EPSTEIN on 07/04/19 1601 Ondansetron (Ondansetron Odt) 4 Mg Tab.rapdis, 4 MG PO Q6H PRN for NAUSEA/VOMITING Prescribed by: NAHID ZUNIGA on 05/18/18 0959 Ondansetron (Ondansetron Odt) 4 Mg Tab.rapdis, 4 MG PO tid PRN for NAUSEA/VOMITING-1ST LINE Prescribed by: KATHARINE SHARP on 07/04/19 1749 Prednisone (Prednisone) 50 Mg Tab, 50 MG PO DAILY Prescribed by: VAMSHI BLANCO on 01/24/21 1724 Pregabalin (Pregabalin) 75 Mg Capsule, (Reported) Entered as Reported by: SULEMAN EPSTEIN on 07/04/19 1601 Review of Systems Review of Systems Constitutional: chills, fever (subjective for over a month); No weakness Eyes: Photophobia, Vision Changes (decreased vision from left eye) Ears, Nose, Mouth, Throat: no symptoms reported Respiratory: see HPI Cardiovascular: no symptoms reported Gastrointestinal: see HPI Genitourinary: no symptoms reported Musculoskeletal: No neck pain Skin: No rash Psychiatric/Neurological: Headache Past Wcswzxz-Xowoky-Otfnuc Hx Patient Social History Tobacco Use?: No Use of E-Cig and/or Vaping dev: No Substance use?: No Alcohol Use?: No Pt feels they are or have been: No Immunizations Up To Date Tetanus Booster (TDap): More than 5yrs PED Vaccines UTD: Yes Seasonal Allergies Seasonal Allergies: No Past Medical History Surgery/Hospitalization HX: Ocular Migraine Surgeries: Yes Section, Gallbladder, Hysterectomy, Tubal Ligation Respiratory: Yes (FREQUENT ASTHMATIC BRONCHITIS) Cardiac: No Neurological: No MEDICAL DIR History: Hysterectomy Genitourinary: No Gastrointestinal: No Musculoskeletal: Yes Arthritis, Fibromyalgia Endocrine: Yes Hypothyroidsim HEENT: No Cancer: No Psychosocial: Yes Depression Integumentary: No Blood Disorders: No Family Medical History Heart Disease Physical Exam Vital Signs Vital Signs - First Documented 02/14/21 18:39 Temp 35.8 Pulse 91 Resp 18 B/P (MAP) 100/65 (77) Pulse Ox 100 O2 Delivery Room Air Capillary Refill : Less Than 3 Seconds Height, Weight, BMI Height: 5'2.00" Weight: 247lbs. oz. 112.748523qb; 39.00 BMI Method:Stated General Appearance: moderate distress, obese HEENT: PERRL/EOMI, pharynx normal Neck: non-tender, full range of motion, supple, normal inspection Cardiovascular: normal peripheral pulses, regular rate, rhythm Respiratory: chest non-tender, lungs clear, normal breath sounds Gastrointestinal: normal bowel sounds, non tender, soft, no pulsatile mass Extremities: normal range of motion, non-tender, normal capillary refill Psychiatric: alert, oriented x 3, other (anxious and tearful at times) Crainal Nerves: normal hearing, normal speech, PERRL Coordination/Gait: normal gait Motor/Sensory: no motor deficit, no sensory deficit Skin: normal color, warm/dry; No rash Progress/Results/Core Measures Results/Orders My Orders Orders - JULIETTE SERNA MD Ed Iv/Invasive Line Start (02/14/21 19:15) Ct Head Wo (02/14/21 19:15) Ns Iv 1000 Ml (Sodium Chloride 0.9%) (02/14/21 19:15) Magnesium 1 Gm/100 Ml Ivpb (Magnesium Martinez (02/14/21 19:15) Ondansetron Injection (Zofran Injectio (02/14/21 19:15) Diphenhydramine Injection (Benadryl Inje (02/14/21 19:15) Ketorolac Injection (Toradol Injection) (02/14/21 20:01) Vital Signs/I&O 02/14/21 02/14/21 18:39 20:37 Temp 35.8 Pulse 91 91 Resp 18 18 B/P (MAP) 100/65 (77) 100/65 Pulse Ox 100 100 O2 Delivery Room Air Room Air Blood Pressure Mean: 77 Progress Progress Note #1: Progress Note Since she has not had a CT scan of her head will evaluate that since this ocular migraine has lasted longer than usual. Try IV magnesium, IV fluids for hydration, Benadryl for nausea and to help her rest, Zofran for nausea. Patient was offered Toradol with Benadryl and nausea medicine but she stated that she was allergic to Toradol. Thus the magnesium was ordered in its place. Progress Note #2: Progress Note The CT scan of the head does not show any acute process to account for her symptoms. Her symptoms are improving with treatment. Upon further detail with the patient she is allergic to tramadol but not Toradol. We will add on Toradol to the medicine she is already receiving. Anticipate discharge to home with encouragement to follow-up and see if they can move up her appointment at all. Progress Note #3: Progress Note After Magnesium and IVF infused pt was able to rest and reports headache significant improved and vision improving with left eye. Will discharge to home and have her rest in cool dark room. Continue meds as prescribed. Check back with clinic and see if Neurologist has a cancellation list that they could contact her if someone cancels an appointment. Diagnostic Imaging Diagonstic Imaging: CT Plain Films/CT/US/NM/MRI: head Comments RIGOBERTO: [facility] REC#: [id number] PT STATUS: REG ER : 1980 PHYSICIAN: JULIETTE SERNA MD ADMIT DATE: 02/14/21/ER FS Draft Date of Exam:02/14/21 CT HEAD WO PROCEDURE: CT head without contrast. TECHNIQUE: Multiple contiguous axial images were obtained through the brain without the use of intravenous contrast. Auto Exposure Controls were utilized during the CT exam to meet ALARA standards for radiation dose reduction. INDICATION: Left-sided head pain, decreased left-sided vision. COMPARISON: 09/14/2018. FINDINGS: There is no intracranial hemorrhage, hydrocephalus, edema, mass, mass effect or elevated pressures. The basilar cisterns patent. There is no sulcal effacement and the cortical manuel-white matter differentiations are well-maintained. Orbits, sinuses and calvarium appear nonacute. IMPRESSION: Stable unremarkable CT head. Dictated on workstation # [id number] Dict: 02/14/211929 Trans: 02/14/211934 [facility] [id number] Interpreted by: JAMARI REAL Electronically signed by: Reviewed: Reviewed by Me Departure Impression Primary Impression: Ocular migraine Disposition: 01 HOME, SELF-CARE Condition: Improved Departure-Patient Inst. Decision time for Depature: 20:30 Referrals: LAKISHA REYNOLDS MD (PCP/Family) Primary Care Physician Patient Instructions: How to Keep Track of Your Headaches, Home Headache Remedies, Migraines in Adults Add. Discharge Instructions: Stay well-hydrated and get plenty of rest. Rest in a cool dark room. Continue on your prescription medications as prescribed. Follow-up through the clinic and see if they can move up your appointment or try and get an earlier appointment with neurology. All discharge instructions reviewed with patient and/or family. Voiced understanding. JULIETTE SERNA MD Feb 14, 2021 18:49
[2021-02-14] MEDS ORDERED: ONDANSETRON 4 MG/2 ML (SDV) Z0FRAN IVP STA (19:15)
[2021-02-14] MEDS ORDERED: diphenhydrAMINE 50 MG/ML INJ (BENADRYL) IVP STA (19:15)
[2021-02-14] MEDS ORDERED: NS IV 1000 ML 1,000 ML IV STA (19:15)
[2021-02-14] MEDS ORDERED: MAGNESIUM 1 GM/100 ML IVPB 100 ML IV STA (19:15)
--- NOTE | 2021-02-14 19:35 | Diagnostic Imaging Report ---
PROCEDURE: CT head without contrast. TECHNIQUE: Multiple contiguous axial images were obtained through the brain without the use of intravenous contrast. Auto Exposure Controls were utilized during the CT exam to meet ALARA standards for radiation dose reduction. INDICATION: Left-sided head pain, decreased left-sided vision. COMPARISON: 09/14/2018. FINDINGS: There is no intracranial hemorrhage, hydrocephalus, edema, mass, mass effect or elevated pressures. The basilar cisterns patent. There is no sulcal effacement and the cortical manuel-white matter differentiations are well-maintained. Orbits, sinuses and calvarium appear nonacute. IMPRESSION: Stable unremarkable CT head. Dictated by: Dictated on workstation # [id number]
[2021-02-14] MEDS ORDERED: KETOROLAC 30 MG/ML VIAL IVP STA (20:01)
[2021-02-14 20:37] VITALS: BP 100/65
== END 2021-02-14 20:37 | disposition home or self-care (01) ==
LOC: EDUNIT# 18:28 → ER FS 18:30
DX: G43.B0 Ophthalmoplegic migraine, not intractable (principal); E03.9 Hypothyroidism, unspecified; F32.9 Major depressive disorder, single episode, unspecified; E66.9 Obesity, unspecified; F41.9 Anxiety disorder, unspecified; Z68.39 Body mass index [BMI] 39.0-39.9, adult; Z86.16 Personal history of COVID-19; Z79.890 Hormone replacement therapy; Z79.899 Other long term (current) drug therapy
CPT/HCPCS: 70450

== ENCOUNTER 2021-02-21 23:28 | Observation (INO) | payer MEDICAID ==
[~2021-02-21] VITALS: Ht 157 cm; Wt 100.2 kg
[2021-02-21] MEDS ORDERED: PANTOPRAZOLE 40 MG (PROTONIX) VIAL IV STA (23:37)
[2021-02-21] MEDS ORDERED: NS IV 1000 ML 1,000 ML IV STA (23:37)
--- NOTE | 2021-02-21 23:40 | ED General ---
General Stated Complaint: NAUSEA;EMESIS;DIARRHEA Source of Information: Patient, EMS, Old Records History of Present Illness Date Seen by Provider: Feb 21, 2021 Time Seen by Provider: 23:28 Initial Comments 41-year-old female presenting by EMS from home due to nausea, vomiting, diarrhea. She reports that she has been sick for at least 2 days. EMS was activated because she was laying on the ground and too weak and dizzy to get up. She was covered in her own vomit and stool at home. She denies any ill contacts. She has not tried to get in with the clinic about her symptoms. She is not cooperative with exam or obtaining history. She is wanting to just lay on her side and rest in the bed. She had told EMS that she wanted to be taken directly to [place] in [place] however her vital signs were stable and there was no indication for EMS to transport her an hour away. Timing/Duration: 2-3 Days Associated Systoms: No Chest Pain, No Cough, No Diaphoresis; Fever/Chills (sub jective), Malaise, Nausea/Vomiting, Shortness of Air, Weakness Allergies and Home Medications Allergies Coded Allergies: acetaminophen (Verified Allergy, Unknown, 09/09/19) codeine (Verified Allergy, Unknown, 05/18/18) hydrocodone (Verified Allergy, Unknown, 05/18/18) latex (Verified Allergy, Unknown, 05/18/18) oseltamivir (Verified Allergy, Unknown, 05/18/18) tramadol (Verified Allergy, Unknown, 09/09/19) Patient Home Medication List Home Medication List Reviewed: Yes Albuterol Sulfate (Proair Hfa) 1 Puff Puff, 2 PUFF IH Q4H Prescribed by: VAMSHI BLANCO on 01/24/21 1724 Amitriptyline HCl (Amitriptyline HCl) 25 Mg Tablet, (Reported) Entered as Reported by: SULEMAN EPSTEIN on 07/04/19 1601 Amoxicillin (Amoxicillin) 500 Mg Capsule, 500 MG PO TID Prescribed by: NAHID ZUNIGA on 09/29/18 1814 Duloxetine HCl (Duloxetine HCl) 30 Mg Capsule.dr (Reported) Entered as Reported by: SULEMAN EPSTEIN on 07/04/19 1601 Hydroxyzine Pamoate (Vistaril) 25 Mg Capsule, 25-50 MG PO Q6H Prescribed by: LUIS ANGEL LUJAN on 09/14/18 1637 Ibuprofen (Ibuprofen) 800 Mg Tablet, 800 MG PO Q8H PRN for PAIN Prescribed by: KATHARINE SHARP on 07/04/19 1749 Ibuprofen (Ibuprofen) 800 Mg Tablet, 800 MG PO Q8H PRN for PAIN Prescribed by: VAMSHI BLANCO on 10/19/20 0600 Levothyroxine Sodium (Levothyroxine Sodium) 75 Mcg Tablet, (Reported) Entered as Reported by: SULEMAN EPSTEIN on 07/04/19 1601 Ondansetron (Ondansetron Odt) 4 Mg Tab.rapdis, 4 MG PO Q6H PRN for NAUSEA/VOMITING Prescribed by: NAHID ZUNIGA on 05/18/18 0959 Ondansetron (Ondansetron Odt) 4 Mg Tab.rapdis, 4 MG PO tid PRN for NAUSEA/VOMITING-1ST LINE Prescribed by: KATHARINE SHARP on 07/04/19 1749 Prednisone (Prednisone) 50 Mg Tab, 50 MG PO DAILY Prescribed by: VAMSHI BLANCO on 01/24/21 1724 Pregabalin (Pregabalin) 75 Mg Capsule, (Reported) Entered as Reported by: SULEMAN EPSTEIN on 07/04/19 1601 Review of Systems Review of Systems Constitutional: chills, fever (subjective), malaise, weakness EENTM: no symptoms reported Respiratory: cough Cardiovascular: no symptoms reported Gastrointestinal: abdominal pain (diffuse), diarrhea, nausea, vomiting Genitourinary: No dysuria Musculoskeletal: no symptoms reported Skin: no symptoms reported Psychiatric/Neurological: Weakness Patient was not very cooperative with trying to obtain ROS, History or physical exam. She mumbled and stayed on her side rather than rolling over onto her back or speaking plainly. 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 oz. 112.589290uc; 39.00 BMI Method:Stated General Appearance: No Apparent Distress, Obese HEENT: Moist Mucous Membranes Neck: Full Range of Motion, Normal Inspection, Non Tender, Supple Respiratory: Chest Non Tender, Lungs Clear, Normal Breath Sounds Cardiovascular: Regular Rate, Rhythm, Normal Peripheral Pulses Gastrointestinal: No Pulsatile Mass, Soft, Abnormal Bowel Sounds (hyperactive bowel sounds); No Distended, No Guarding, No Rebound; Tenderness (diffuse pain with palpation) Rectal: Deferred Extremity: Normal Capillary Refill, Normal Inspection, No Pedal Edema Neurologic/Psychiatric: Other (somonolent and patient mumling rather than speaking clearly) Skin: Normal Color, Warm/Dry Focused Exam Lactate Level 02/22/21 01:40: Lactic Acid Level 1.75 Lactic Acid Level Laboratory Tests Test 02/22/21 01:40 Lactic Acid Level 1.75 MMOL/L (0.50-2.00) Progress/Results/Core Measures Suspected Sepsis SIRS Temperature: Pulse: Respiratory Rate: Laboratory Tests 02/21/21 23:45: White Blood Count 14.3H Blood Pressure / Mean: 02/22/21 01:40: Lactic Acid Level 1.75 Laboratory Tests 02/21/21 23:45: Creatinine 0.63, Platelet Count 254, Total Bilirubin 0.3 Results/Orders Lab Results Laboratory Tests Test 02/21/21 23:45 02/22/21 01:40 Range/Units White Blood Count 14.3 H 4.3-11.0 10^3/uL Red Blood Count 4.91 3.80-5.11 10^6/uL Hemoglobin 13.3 11.5-16.0 g/dL Hematocrit 41 35-52 % Mean Corpuscular Volume 84 80-99 fL Mean Corpuscular Hemoglobin 27 25-34 pg Mean Corpuscular Hemoglobin Concent 32 32-36 g/dL Red Cell Distribution Width 13.2 10.0-14.5 % Platelet Count 254 130-400 10^3/uL Mean Platelet Volume 9.6 9.0-12.2 fL Immature Granulocyte % (Auto) 1 % Neutrophils (%) (Auto) 81 H 42-75 % Lymphocytes (%) (Auto) 11 L 12-44 % Monocytes (%) (Auto) 7 0-12 % Eosinophils (%) (Auto) 1 0-10 % Basophils (%) (Auto) 0 0-10 % Neutrophils # (Auto) 11.6 H 1.8-7.8 X 10^3 Lymphocytes # (Auto) 1.6 1.0-4.0 X 10^3 Monocytes # (Auto) 0.9 0.0-1.0 X 10^3 Eosinophils # (Auto) 0.1 0.0-0.3 10^3/uL Basophils # (Auto) 0.1 0.0-0.1 10^3/uL Immature Granulocyte # (Auto) 0.1 0.0-0.1 10^3/uL Neutrophils % (Manual) 82 % Lymphocytes % (Manual) 8 % Monocytes % (Manual) 6 % Eosinophils % (Manual) 2 % Basophils % (Manual) 2 % Platelet Estimate ADEQUATE Blood Morphology Comment NORMAL Sodium Level 137 135-145 MMOL/L Potassium Level 4.2 3.6-5.0 MMOL/L Chloride Level 100 98-107 MMOL/L Carbon Dioxide Level 27 21-32 MMOL/L Anion Gap 10 5-14 MMOL/L Blood Urea Nitrogen 10 7-18 MG/DL Creatinine 0.63 0.60-1.30 MG/DL Estimat Glomerular Filtration Rate 103 BUN/Creatinine Ratio 16 Glucose Level 118 H 70-105 MG/DL Calcium Level 9.1 8.5-10.1 MG/DL Corrected Calcium 9.1 8.5-10.1 MG/DL Magnesium Level 2.3 1.6-2.4 MG/DL Total Bilirubin 0.3 0.1-1.0 MG/DL Aspartate Amino Transf (AST/SGOT) 15 5-34 U/L Alanine Aminotransferase (ALT/SGPT) 14 0-55 U/L Alkaline Phosphatase 96 40-136 U/L Total Protein 7.9 6.4-8.2 GM/DL Albumin 4.0 3.2-4.5 GM/DL Lipase 11 8-78 U/L Lactic Acid Level 1.75 0.50-2.00 MMOL/L My Orders Orders - JULIETTE SERNA MD Comprehensive Metabolic Panel (02/21/21 23:37) Lipase (02/21/21:37) Ua Culture If Indicated (02/21/21:37) Ed Iv/Invasive Line Start (02/21/21 23:37) Cbc With Automated Diff (02/21/21:37) Ns Iv 1000 Ml (Sodium Chloride 0.9%) (02/21/21 23:37) Pantoprazole Injection (Protonix Injecti (02/21/21:37) Magnesium (02/21/21:37) Iohexol Injection (Omnipaque 350 Mg/Ml 1 (02/22/21 00:00) Received Contrast (Hold Metformin- Contr (02/22/21 00:00) Ns (Ivpb) (Sodium Chloride 0.9% Ivpb Bag (02/22/21 00:00) Manual Differential (02/21/21 23:45) Blood Culture (02/22/21 00:56) Lactic Acid Analyzer (02/22/21 00:56) Ciprofloxacin Iv 400mg/200ml (Cipro Iv S (02/22/21 01:05) Metronidazole 500mg/100ml Ivpb (Flagyl 5 (02/22/21 01:05) Stool Culture (02/22/21 01:25) Fecal Wbc (02/22/21 01:25) C Difficile Ag + Toxin A/B. (02/22/21 01:25) Isolation Central Supply Req (02/22/21 01:25) Ct Abdomen/Pelvis W (02/21/21 23:37) Medications Given in ED Current Medications Medications Dose Ordered Sig/Tylor Route Start Time Stop Time Status Last Admin Dose Admin Iohexol 100 ml ONCE ONCE IV 02/22/21 00:00 02/22/21 00:01 DC 02/21/21 23:59 100 ML Sodium Chloride 100 ml ONCE ONCE IV 02/22/21 00:00 02/22/21 00:01 DC 02/21/21 23:59 100 ML Vital Signs/I&O 02/21/21 23:30 Temp 36.5 Pulse 88 Resp 16 B/P (MAP) 114/67 (83) Pulse Ox 97 O2 Delivery Room Air Capillary Refill : Progress Note #1: Progress Note Obtain labs as well as CT scan of the abdomen pelvis. Give IV fluids for hydration. Protonix to help with gastritis and stomach irritation. Obtain urine to look for infection. Progress Note #2: Time: 00:34 Progress Note labs show elevated WBC count with left shift. Chemistry without acute significant abnormality. CT scan shows ground glass opacities in the lower lungs and wall thickening of the colon extending to the rectum suggesting nonspecific inflammatory or infections proctocolitis. She has not provided urine for testing yet. She is mostly sleeping in the room but when sister came to room she woke up and asked for something to drink. With stable vitals and not showing signs of severe dehydration on vitals, exam or labs, will check with pt and see if she feels she could manage things with anti-emetic and antibiotic at home or if she feels too weak and not tolerating hydration could check with machine long goods helper provider for Dr. Aguilar about admit for hydration and antibiotics. Progress Note #3: Time: 01:04 Progress Note d/w Dr. Guillermo and will admit for [facility] as an observation status patient to get IVF and antibiotics. Diagnostic Imaging Diagonstic Imaging: CT Plain Films/CT/US/NM/MRI: abdomen, pelvis Comments Impression: 1. Patchy groundglass opacities in the lower lungs which may be infectious. 2. Apparent wall thickening of the colon extending to the rectum suggesting nonspecific inflammatory or infectious proctocolitis. Read by radiologist Dr. Timmy Henderson MD at 0020 and faxed at 0030 [facility]ed: [facility] Reviewed by Md Departure Communication (Admissions) Time/Spoke to Admitting Phy: 01:04 d/w Dr. Guillermo machine long goods helper for [facility]. Will admit for IV fluids and antibiotics. Impression Primary Impression: Nausea vomiting and diarrhea Additional Impression: Colitis Disposition: 30 STILL A PATIENT Condition: Stable Admissions Decision to Admit Reason: Admit from ER (General) Decision to Admit/Date: Feb 22, 2021 Time/Decision to Admit Time: 01:04 Departure-Patient Inst. Referrals: LAKISHA AGUILAR MD (PCP/Family) Primary Care Physician JULIETTE SERNA MD Feb 21, 2021 23:40
[2021-02-22] MEDS ORDERED: HOLD METFORMIN - RECEIVED CONTRAST 20 ML VIAL IV SCH
[2021-02-22] MEDS ORDERED: IOHEXOL 350 MG/ML 100 ML (OMNIPAQUE 350) VIAL IV ONE
[2021-02-22] MEDS ORDERED: NS 100 ML (IVPB) BAG IV ONE
[2021-02-22 00:05] LABS: HEMATOCRIT 41 % (35-52); HEMOGLOBIN 13.3 g/dL (11.5-16.0); MEAN CORPUSCULAR HEMOGLOBIN 27 pg (25-34); MEAN CORPUSCULAR HGB CONC 32 g/dL (32-36); MEAN CORPUSCULAR VOLUME 84 fL (80-99); WHITE BLOOD COUNT 14.3 10^3/uL (4.3-11.0)
[2021-02-22 00:06] LABS: BASOPHILS # (AUTO) 0.1 10^3/uL (0.0-0.1); BASOPHILS % (AUTO) 0 % (0-10); EOSINOPHILS # (AUTO) 0.1 10^3/uL (0.0-0.3); EOSINOPHILS % (AUTO) 1 % (0-10); LYMPHOCYTES # (AUTO) 1.6 X 10^3 (1.0-4.0); LYMPHOCYTES % (AUTO) 11 % (12-44); MEAN PLATELET VOLUME 9.6 fL (9.0-12.2); MONOCYTES # (AUTO) 0.9 X 10^3 (0.0-1.0); MONOCYTES % (AUTO) 7 % (0-12); NEUTROPHILS # (AUTO) 11.6 X 10^3 (1.8-7.8); NEUTROPHILS % (AUTO) 81 % (42-75); PLATELET COUNT 254 10^3/uL (130-400)
[2021-02-22 00:12] LABS: BASOPHILS % (MANUAL) 2 %; EOSINOPHILS % (MANUAL) 2 %; LYMPHOCYTES % (MANUAL) 8 %; MONOCYTES % (MANUAL) 6 %; NEUTROPHILS % (MANUAL) 82 %; PLATELET ESTIMATE ADEQUATE; RBC MORPH NORMAL
[2021-02-22 00:19] LABS: BILIRUBIN,TOTAL 0.3 MG/DL (0.1-1.0); CALCIUM 9.1 MG/DL (8.5-10.1); CREATININE SERUM 0.63 MG/DL (0.60-1.30); MAGNESIUM 2.3 MG/DL (1.6-2.4); POTASSIUM 4.2 MMOL/L (3.6-5.0); TOTAL PROTEIN 7.9 GM/DL (6.4-8.2)
[2021-02-22] MEDS ORDERED: metroNIDAZOLE 500MG/100ML IVPB 100 ML IV STA (01:05)
[2021-02-22] MEDS ORDERED: CIPROFLOXACIN IV 400MG/200ML 200 ML IV STA (01:05)
[2021-02-22 03:08] VITALS: BP 110/72
[2021-02-22] MEDS: NS IV 1000 ML 1,000 ML IV SCH ×3 (03:31→17:14)
[2021-02-22] MEDS: metroNIDAZOLE 500 MG/100 ML IVPB (PRE-MIX) IV SCH ×3 (04:56→21:17)
[2021-02-22 05:24] LABS: BASOPHILS % (AUTO) 0 % (0-10); EOSINOPHILS % (AUTO) 0 % (0-10); HEMATOCRIT 39 % (35-52); HEMOGLOBIN 12.8 g/dL (11.5-16.0); LYMPHOCYTES # (AUTO) 1.5 10^3/uL (1.0-4.0); LYMPHOCYTES % (AUTO) 11 % (12-44); MEAN CORPUSCULAR HEMOGLOBIN 28 pg (25-34); MEAN CORPUSCULAR HGB CONC 33 g/dL (32-36); MEAN CORPUSCULAR VOLUME 85 fL (80-99); MEAN PLATELET VOLUME 10.1 fL (9.0-12.2); MONOCYTES # (AUTO) 0.7 10^3/uL (0.0-1.0); MONOCYTES % (AUTO) 5 % (0-12); NEUTROPHILS # (AUTO) 11.8 10^3/uL (1.8-7.8); NEUTROPHILS % (AUTO) 84 % (42-75); PLATELET COUNT 238 10^3/uL (130-400); WHITE BLOOD COUNT 14.1 10^3/uL (4.3-11.0)
[2021-02-22 05:45] LABS: CALCIUM 9.2 MG/DL (8.5-10.1); CREATININE SERUM 0.73 MG/DL (0.60-1.30)
[2021-02-22] MEDS: CIPROFLOXACIN 400 MG/D5W 200 ML (PRE-MIX) IV SCH ×2 (06:07→17:14)
[2021-02-22 08:00] VITALS: BP 118/64
--- NOTE | 2021-02-22 08:14 | Diagnostic Imaging Report ---
PROCEDURE: CT abdomen and pelvis with contrast. TECHNIQUE: Multiple contiguous axial images were obtained through the abdomen and pelvis after administration of intravenous contrast. Auto Exposure Controls were utilized during the CT exam to meet ALARA standards for radiation dose reduction. All CT scans use one or more of the following dose optimizing techniques: automated exposure control, MA and/or KvP adjustment based on patient size and exam type or iterative reconstruction. INDICATION: Abdominal pain, nausea, vomiting COMPARISON: None available FINDINGS: Mild patchy groundglass opacities are identified within the lung bases. Cholecystectomy. The liver demonstrates diffusely decreased density throughout without focal hepatic mass. The spleen is unremarkable. The adrenal glands are unremarkable. The pancreas is unremarkable. The kidneys and bilateral ureters are unremarkable. No aneurysmal dilatation of the abdominal aorta. The urinary bladder is unremarkable. The uterus is not visualized, likely surgically absent. Small simple appearing cyst noted within bilateral ovaries. The appendix is unremarkable. Mild diffuse mural thickening of the colon is identified. No bowel obstruction or pneumatosis. No significant adenopathy, free air, or free fluid within the abdomen or pelvis. No acute osseous abnormality. IMPRESSION: Patchy bibasilar groundglass pulmonary opacities, concerning for an underlying infectious etiology. COVID 19 should be considered. Mild diffuse mural thickening of the colon. This may relate to underlying colitis of infectious or inflammatory etiology. Poor distention would be an additional consideration. No bowel obstruction. Fatty infiltration liver. Additional findings as above. Agree with preliminary interpretation. Report was faxed to [facility] by marlee at 8:13am. Dictated by: Dictated on workstation # [id number]
[2021-02-22 12:00] VITALS: BP 106/58
--- NOTE | 2021-02-22 15:30 | History & Physical ---
HPI History of Present Illness: 41 yo female is unable to give much history, states she came to the hospital because her sister made her, she found her fallen down on the floor. Pt does not know exactly when that was or what happened. Currently she is having urge to urinate but unable to go and feels like her bladder is hurting. She is also having general abdominal pain. Source: patient Exam Limitations: clinical condition Date seen by provider: Feb 22, 2021 Time Seen by Provider: 14:00 Attending Physician Aislinn Aponte DO PCP Self,Phil STANTON Consult Date of Admission Feb 22, 2021 at 02:51 Home Medications Home Medications Reviewed patient Home Medication Reconciliation performed by pharmacy medication reconciliations orthodontic laboratory technician and/or nursing. Patients Allergies have been reviewed. Allergies Coded Allergies: acetaminophen (Verified Allergy, Unknown, 09/09/19) codeine (Verified Allergy, Unknown, 05/18/18) hydrocodone (Verified Allergy, Unknown, 05/18/18) latex (Verified Allergy, Unknown, 05/18/18) oseltamivir (Verified Allergy, Unknown, 05/18/18) tramadol (Verified Allergy, Unknown, 09/09/19) VNI-[id number]-[id number] Hx Patient Social History Smoking Status: Never a Smoker 2nd Hand Smoke Exposure: Yes Recent Hopitalizations: No Alcohol Use?: No Have you traveled recently?: No Immunizations Up To Date Tetanus Booster (TDap): More than 5yrs Past Medical History PMHx: (unable to recall, found in outpatient clinic chart) Fibromyalgia GERD Hypothyroidism Depression Anxiety SurgHx: C section Tubal ligation Cholecystectomy Partial hysterectomy Bilateral carpal tunnel release Family Medical History Significant Family History: Heart Disease, Diabetes Review of Systems ([facility]) Constitutional: fever (felt feverish for last 2 months at times) Respiratory: No short of breath Cardiovascular: No chest pain Gastrointestinal: abdominal pain, diarrhea, nausea, vomiting Genitourinary: decreased output, hesitancy Reviewed Test Results Reviewed Test Results Lab Laboratory Tests Test 02/21/21 23:45 02/22/21 01:40 02/22/21 04:56 02/22/21 10:07 Range/Units White Blood Count 14.3 H 14.1 H 4.3-11.0 10^3/uL Red Blood Count 4.91 4.62 3.80-5.11 10^6/uL Hemoglobin 13.3 12.8 11.5-16.0 g/dL Hematocrit 41 39 35-52 % Mean Corpuscular Volume 84 85 80-99 fL Mean Corpuscular Hemoglobin 27 28 25-34 pg Mean Corpuscular Hemoglobin Concent 32 33 32-36 g/dL Red Cell Distribution Width 13.2 13.1 10.0-14.5 % Platelet Count 254 238 130-400 10^3/uL Mean Platelet Volume 9.6 10.1 9.0-12.2 fL Immature Granulocyte % (Auto) 1 1 % Neutrophils (%) (Auto) 81 H 84 H 42-75 % Lymphocytes (%) (Auto) 11 L 11 L 12-44 % Monocytes (%) (Auto) 7 5 0-12 % Eosinophils (%) (Auto) 1 0 0-10 % Basophils (%) (Auto) 0 0 0-10 % Neutrophils # (Auto) 11.6 H 11.8 H 1.8-7.8 10^3/uL Lymphocytes # (Auto) 1.6 1.5 1.0-4.0 10^3/uL Monocytes # (Auto) 0.9 0.7 0.0-1.0 10^3/uL Eosinophils # (Auto) 0.1 0.0 0.0-0.3 10^3/uL Basophils # (Auto) 0.1 0.0 0.0-0.1 10^3/uL Immature Granulocyte # (Auto) 0.1 0.1 0.0-0.1 10^3/uL Neutrophils % (Manual) 82 % Lymphocytes % (Manual) 8 % Monocytes % (Manual) 6 % Eosinophils % (Manual) 2 % Basophils % (Manual) 2 % Platelet Estimate ADEQUATE Blood Morphology Comment NORMAL Sodium Level 137 139 135-145 MMOL/L Potassium Level 4.2 4.0 3.6-5.0 MMOL/L Chloride Level 100 103 98-107 MMOL/L Carbon Dioxide Level 27 24 21-32 MMOL/L Anion Gap 10 12 5-14 MMOL/L Blood Urea Nitrogen 10 8 7-18 MG/DL Creatinine 0.63 0.73 0.60-1.30 MG/DL Estimat Glomerular Filtration Rate 103 87 BUN/Creatinine Ratio 16 11 Glucose Level 118 H 90 70-105 MG/DL Calcium Level 9.1 9.2 8.5-10.1 MG/DL Corrected Calcium 9.1 8.5-10.1 MG/DL Magnesium Level 2.3 1.6-2.4 MG/DL Total Bilirubin 0.3 0.1-1.0 MG/DL Aspartate Amino Transf (AST/SGOT) 15 5-34 U/L Alanine Aminotransferase (ALT/SGPT) 14 0-55 U/L Alkaline Phosphatase 96 40-136 U/L Total Protein 7.9 6.4-8.2 GM/DL Albumin 4.0 3.2-4.5 GM/DL Lipase 11 8-78 U/L Lactic Acid Level 1.75 0.50-2.00 MMOL/L SARS-CoV-2 RNA (RT-PCR) Detected H Not Detecte Radiology CT abd/pelvis 02/21: IMPRESSION: Patchy bibasilar groundglass pulmonary opacities, concerning for an underlying infectious etiology. COVID 19 should be considered. Mild diffuse mural thickening of the colon. This may relate to underlying colitis of infectious or inflammatory etiology. Poor distention would be an additional consideration. No bowel obstruction. Fatty infiltration liver. Physical Exam-(CHC) Physical Exam Vital Signs VS - Last 72 Hours, by Label 02/21/21 02/22/21 02/22/21 02/22/21 23:30 02:32 03:08 03:15 Temp 36.5 36.5 37.1 Pulse 88 80 85 Resp 16 16 17 B/P (MAP) 114/67 (83) 116/60 110/72 (85) Pulse Ox 97 98 99 O2 Delivery Room Air Room Air Room Air Room Air 02/22/21 02/22/21 02/22/21 08:00 08:52 12:00 Temp 36.1 36.0 Pulse 85 87 Resp 18 18 B/P (MAP) 118/64 (82) 106/58 (74) Pulse Ox 92 97 O2 Delivery Room Air Room Air Room Air Capillary Refill : Less Than 3 Seconds General Appearance: mild distress (uncomfortable due to pain) Respiratory: lungs clear, normal breath sounds, no respiratory distress Cardiovascular: regular rate, rhythm, no edema, no murmur Gastrointestinal: normal bowel sounds, soft, tenderness (diffuse) Extremities: no pedal edema Neurologic/Psychiatric: alert Skin: normal color, warm/dry Assessment/Plan Assessment/Plan Admission Status: Observation (1) Colitis Status: Acute Assessment & Plan: C diff negative. Started on cipro/flagyl due to CT findings, however consider viral etiology with positive Sars-CoV-2. IVF, antiemetics. (2) SARS-CoV-2 positive Status: Acute Assessment & Plan: Unclear if acute infection, after results received, noted she had positive test on 01/23, may be prolonged positive. Unvaccinated. No respiratory issues. (3) Urinary retention Status: Acute Assessment & Plan: New problem per her report, requesting Jeter, bladder scan with over 400 cc and unable to void with multiple attempts, will place jeter. (4) Fibromyalgia Status: Chronic (5) Hypothyroidism Status: Chronic (6) DVT prophylaxis Status: Acute Assessment & Plan: Enoxaparin RAFAEL BLACK MD Feb 22, 2021 15:30
[2021-02-22] MEDS ORDERED: BACL5TAB PO (15:39)
[2021-02-22] MEDS ORDERED: LORA-404 PO (15:39)
[2021-02-22] MEDS ORDERED: BUPR300T98 PO (15:39)
[2021-02-22] MEDS ORDERED: LEVO75TA97 PO (15:39)
[2021-02-22] MEDS ORDERED: DIVA-74 PO (15:39)
[2021-02-22] MEDS ORDERED: OMEP40CA6 PO (15:40)
[2021-02-22] MEDS ORDERED: ENOXAPARIN 40 MG/0.4 ML (LOVENOX) SYR SQ SCH (15:45)
[2021-02-22] MEDS ORDERED: LORazepam 0.5 MG (ATIVAN) TABLET PO PRN (15:45)
[2021-02-22] MEDS ORDERED: RT-ALBUTEROL SULF 2.5 MG/3 ML PRE-MIX VIAL IH PRN (15:45)
[2021-02-22] MEDS ORDERED: BACLOFEN 5 MG PO PRN (15:45)
[2021-02-22 15:53] VITALS: BP 135/71
[2021-02-22] MEDS ORDERED: BACLOFEN 10 MG (LIORESAL) TAB PO PRN (16:15)
[2021-02-22] MEDS: ENOXAPARIN 40 MG/0.4 ML (LOVENOX) SYR SQ SCH (17:14)
[2021-02-22] MEDS: ONDANSETRON 4 MG/2 ML (SDV) Z0FRAN IV PRN (18:29)
[2021-02-22 19:47] VITALS: BP 110/65
[2021-02-22] MEDS: DIVALPROEX 250 MG DELAYED RELEASE (DEPAKOTE) TAB PO SCH (21:13)
[2021-02-23 00:04] VITALS: BP 112/59
[2021-02-23 03:41] VITALS: BP 96/55
[2021-02-23] MEDS: NS IV 1000 ML 1,000 ML IV SCH ×2 (03:41→13:45)
[2021-02-23] MEDS: metroNIDAZOLE 500 MG/100 ML IVPB (PRE-MIX) IV SCH ×3 (05:00→20:36)
[2021-02-23] MEDS: CIPROFLOXACIN 400 MG/D5W 200 ML (PRE-MIX) IV SCH ×2 (06:16→18:12)
[2021-02-23] MEDS: ENOXAPARIN 40 MG/0.4 ML (LOVENOX) SYR SQ SCH ×2 (06:17→18:14)
[2021-02-23] MEDS: LEVOTHYROXINE 75 MCG (LEVOTHROID) TABLET PO SCH (06:17)
[2021-02-23 06:58] LABS: HEMATOCRIT 36 % (35-52); HEMOGLOBIN 11.3 g/dL (11.5-16.0); MEAN CORPUSCULAR HEMOGLOBIN 27 pg (25-34); MEAN CORPUSCULAR HGB CONC 32 g/dL (32-36); MEAN CORPUSCULAR VOLUME 85 fL (80-99); MEAN PLATELET VOLUME 9.7 fL (9.0-12.2); PLATELET COUNT 201 10^3/uL (130-400); WHITE BLOOD COUNT 8.2 10^3/uL (4.3-11.0)
[2021-02-23 07:26] LABS: ALBUMIN 3.3 GM/DL (3.2-4.5); POTASSIUM 3.3 MMOL/L (3.6-5.0)
[2021-02-23 07:27] LABS: CALCIUM 8.6 MG/DL (8.5-10.1)
[2021-02-23 07:29] LABS: TOTAL PROTEIN 6.7 GM/DL (6.4-8.2)
[2021-02-23 07:30] LABS: BILIRUBIN,TOTAL 0.3 MG/DL (0.1-1.0)
[2021-02-23 07:32] LABS: CREATININE SERUM 0.63 MG/DL (0.60-1.30)
[2021-02-23 08:00] VITALS: BP 135/64
[2021-02-23] MEDS ORDERED: NON-FORMULARY MEDICATION 1 EA EA (Omeprazole 40 MG) PO SCH (09:00)
[2021-02-23] MEDS ORDERED: NON-FORMULARY MEDICATION 1 EA EA (Bupropion HCl (Bupropion Xl) 300 MG) PO SCH (09:00)
[2021-02-23] MEDS: DIVALPROEX 250 MG DELAYED RELEASE (DEPAKOTE) TAB PO SCH ×3 (09:06→20:36)
[2021-02-23] MEDS: buPROPion SR 150 MG (WELLBUTRIN SR) TAB PO SCH ×2 (09:06→18:14)
[2021-02-23] MEDS: PANTOPRAZOLE 40 MG (PROTONIX) TAB PO SCH (09:07)
--- NOTE | 2021-02-23 10:25 | Progress Note - Hospitalist ---
Subjective HPI/CC On Admission Date Seen by Provider: Feb 23, 2021 Time Seen by Provider: 11:00 Subjective/Events-last exam Patient doing much better Wants to advance diet Carmen catheter will be discontinued and make sure she can void since she was retaining Patient has a very flat affect Review of Systems General: Fatigue, Malaise Focused Exam Lactate Level 02/22/21 01:40: Lactic Acid Level 1.75 Objective Exam Vital Signs Vital Signs Date Time Temp Pulse Resp B/P (MAP) Pulse Ox O2 Delivery O2 Flow Rate FiO2 02/24/21 03:46 36.8 70 18 100/58 (72) 99 Room Air Capillary Refill : Less Than 3 Seconds General Appearance: No Apparent Distress, WD/WN, Chronically ill Respiratory: No Accessory Muscle Use, No Respiratory Distress, Decreased Breath Sounds Cardiovascular: Regular Rate, Rhythm Neurologic/Psychiatric: Alert, Oriented x3, Depressed Affect Results/Procedures Lab Laboratory Tests 02/23/21 06:43 Patient resulted labs reviewed. Assessment/Plan Assessment and Plan Assess & Plan/Chief Complaint Assessment: Colitis Nausea and vomiting Abdominal pain Fibromyalgia Covid positive Urinary retention requiring Carmen catheter Plan: Advance diet Decrease IV fluids DC Carmen catheter JOHANA DILL DO Feb 23, 2021 10:25
[2021-02-23 12:00] VITALS: BP 117/59
[2021-02-23] MEDS ORDERED: POTASSIUM CHLORIDE INJ 20 MEQ in NS IV 1000 ML 1,000 ML IV SCH (13:51)
[2021-02-23] MEDS: NS W/KCL 20 MEQ/L 1,000 ML IV SCH (15:23)
[2021-02-23 16:32] VITALS: BP 128/60
[2021-02-23 20:27] VITALS: BP 117/53
[2021-02-24 00:04] VITALS: BP 98/58
[2021-02-24 03:46] VITALS: BP 100/58
[2021-02-24] MEDS: metroNIDAZOLE 500 MG/100 ML IVPB (PRE-MIX) IV SCH ×3 (05:35→20:06)
[2021-02-24] MEDS: ENOXAPARIN 40 MG/0.4 ML (LOVENOX) SYR SQ SCH ×2 (05:35→17:51)
[2021-02-24] MEDS: LEVOTHYROXINE 75 MCG (LEVOTHROID) TABLET PO SCH (05:35)
[2021-02-24] MEDS: CIPROFLOXACIN 400 MG/D5W 200 ML (PRE-MIX) IV SCH ×2 (06:37→17:51)
[2021-02-24] MEDS: NS W/KCL 20 MEQ/L 1,000 ML IV SCH (06:37)
--- NOTE | 2021-02-24 06:40 | Progress Note - Hospitalist ---
Subjective HPI/CC On Admission Date Seen by Provider: Feb 24, 2021 Time Seen by Provider: 12:30 Subjective/Events-last exam Patient doing better Less abdominal pain Eating and drinking better Hep locking IV fluid We will ambulate in halls Difficulty coping Review of Systems General: Fatigue, Malaise Gastrointestinal: Nausea Focused Exam Lactate Level Objective Exam Vital Signs Vital Signs Date Time Temp Pulse Resp B/P (MAP) Pulse Ox O2 Delivery O2 Flow Rate FiO2 02/25/21 02:33 99 Room Air 02/24/21 23:54 36.6 71 18 113/63 (80) Capillary Refill : Less Than 3 Seconds General Appearance: No Apparent Distress, WD/WN, Chronically ill Respiratory: Lungs Clear, Normal Breath Sounds Cardiovascular: Regular Rate, Rhythm Neurologic/Psychiatric: Alert, Oriented x3, No Motor/Sensory Deficits, Normal Mood/Affect Results/Procedures Lab Laboratory Tests 02/24/21 06:40 Patient resulted labs reviewed. Assessment/Plan Assessment and Plan Assess & Plan/Chief Complaint Assessment: Colitis Nausea and vomiting Abdominal pain Fibromyalgia Covid positive Urinary retention requiring Carmen catheter Plan: Advance diet Decrease IV fluids DC Carmen catheter 02/24/21: DC home tomorrow Ambulate in halls today Flat affect JOHANA DILL DO Feb 24, 2021 06:40
[2021-02-24 06:53] LABS: BASOPHILS % (AUTO) 1 % (0-10); EOSINOPHILS # (AUTO) 0.3 10^3/uL (0.0-0.3); EOSINOPHILS % (AUTO) 3 % (0-10); HEMATOCRIT 37 % (35-52); HEMOGLOBIN 11.7 g/dL (11.5-16.0); LYMPHOCYTES # (AUTO) 1.7 10^3/uL (1.0-4.0); LYMPHOCYTES % (AUTO) 22 % (12-44); MEAN CORPUSCULAR HEMOGLOBIN 27 pg (25-34); MEAN CORPUSCULAR HGB CONC 32 g/dL (32-36); MEAN CORPUSCULAR VOLUME 86 fL (80-99); MEAN PLATELET VOLUME 9.7 fL (9.0-12.2); MONOCYTES # (AUTO) 0.6 10^3/uL (0.0-1.0); MONOCYTES % (AUTO) 7 % (0-12); NEUTROPHILS # (AUTO) 5.3 10^3/uL (1.8-7.8); NEUTROPHILS % (AUTO) 67 % (42-75); PLATELET COUNT 232 10^3/uL (130-400); WHITE BLOOD COUNT 7.9 10^3/uL (4.3-11.0)
[2021-02-24 07:04] LABS: ALBUMIN 3.4 GM/DL (3.2-4.5); POTASSIUM 3.7 MMOL/L (3.6-5.0)
[2021-02-24 07:05] LABS: CALCIUM 9.1 MG/DL (8.5-10.1)
[2021-02-24 07:07] LABS: TOTAL PROTEIN 6.8 GM/DL (6.4-8.2)
[2021-02-24 07:09] LABS: BILIRUBIN,TOTAL 0.2 MG/DL (0.1-1.0)
[2021-02-24 07:10] LABS: CREATININE SERUM 0.68 MG/DL (0.60-1.30)
[2021-02-24 07:44] VITALS: BP 97/58
[2021-02-24] MEDS: DIVALPROEX 250 MG DELAYED RELEASE (DEPAKOTE) TAB PO SCH ×3 (08:46→20:06)
[2021-02-24] MEDS: PANTOPRAZOLE 40 MG (PROTONIX) TAB PO SCH (08:46)
[2021-02-24] MEDS: buPROPion SR 150 MG (WELLBUTRIN SR) TAB PO SCH ×2 (08:46→17:51)
[2021-02-24 12:23] VITALS: BP 107/54
[2021-02-24] MEDS: ONDANSETRON 4 MG/2 ML (SDV) Z0FRAN IV PRN (12:50)
[2021-02-24 16:55] VITALS: BP 104/60
[2021-02-24 23:54] VITALS: BP 113/63
[2021-02-25] MEDS: ENOXAPARIN 40 MG/0.4 ML (LOVENOX) SYR SQ SCH (05:42)
[2021-02-25] MEDS: LEVOTHYROXINE 75 MCG (LEVOTHROID) TABLET PO SCH (05:42)
[2021-02-25] MEDS: metroNIDAZOLE 500 MG/100 ML IVPB (PRE-MIX) IV SCH ×2 (05:42→12:35)
[2021-02-25] MEDS: CIPROFLOXACIN 400 MG/D5W 200 ML (PRE-MIX) IV SCH (05:42)
[2021-02-25 05:52] LABS: BASOPHILS % (AUTO) 1 % (0-10); EOSINOPHILS # (AUTO) 0.2 10^3/uL (0.0-0.3); EOSINOPHILS % (AUTO) 3 % (0-10); HEMATOCRIT 37 % (35-52); HEMOGLOBIN 11.8 g/dL (11.5-16.0); LYMPHOCYTES # (AUTO) 1.5 10^3/uL (1.0-4.0); LYMPHOCYTES % (AUTO) 19 % (12-44); MEAN CORPUSCULAR HEMOGLOBIN 27 pg (25-34); MEAN CORPUSCULAR HGB CONC 32 g/dL (32-36); MEAN CORPUSCULAR VOLUME 85 fL (80-99); MEAN PLATELET VOLUME 9.9 fL (9.0-12.2); MONOCYTES # (AUTO) 0.5 10^3/uL (0.0-1.0); MONOCYTES % (AUTO) 7 % (0-12); NEUTROPHILS # (AUTO) 5.4 10^3/uL (1.8-7.8); NEUTROPHILS % (AUTO) 70 % (42-75); PLATELET COUNT 219 10^3/uL (130-400); WHITE BLOOD COUNT 7.8 10^3/uL (4.3-11.0)
[2021-02-25 05:59] LABS: ALBUMIN 3.4 GM/DL (3.2-4.5); POTASSIUM 3.6 MMOL/L (3.6-5.0)
[2021-02-25 06:00] LABS: CALCIUM 9.4 MG/DL (8.5-10.1)
[2021-02-25 06:01] LABS: TOTAL PROTEIN 6.8 GM/DL (6.4-8.2)
[2021-02-25 06:03] LABS: BILIRUBIN,TOTAL 0.2 MG/DL (0.1-1.0)
[2021-02-25 06:05] LABS: CREATININE SERUM 0.69 MG/DL (0.60-1.30)
[2021-02-25] MEDS: buPROPion SR 150 MG (WELLBUTRIN SR) TAB PO SCH (07:55)
[2021-02-25] MEDS: DIVALPROEX 250 MG DELAYED RELEASE (DEPAKOTE) TAB PO SCH ×2 (07:55→11:59)
[2021-02-25] MEDS: PANTOPRAZOLE 40 MG (PROTONIX) TAB PO SCH (07:55)
[2021-02-25 09:00] VITALS: BP 92/55
[2021-02-25] MEDS ORDERED: ALBU18HF2 INH (09:55)
[2021-02-25] MEDS ORDERED: CIPR500T5 PO (11:00)
[2021-02-25] MEDS ORDERED: OXC5T PO (11:00)
[2021-02-25] MEDS ORDERED: METR500T PO (11:00)
[2021-02-25] MEDS ORDERED: PANT40TA52 PO (11:00)
--- NOTE | 2021-02-25 11:02 | Discharge Summary ---
Discharge Summary Hospital Course Was the Problem List Reviewed?: Yes Problems/Dx: (1) Colitis Status: Acute (2) SARS-CoV-2 positive Status: Acute Hospital Course Date of Admission: Feb 22, 2021 at 02:51 Admission Diagnosis : Family Physician/Provider: Phil Aguilar MD Date of Discharge: 02/25/21 Discharge Diagnosis: Colitis, COVID colonized s/p swab 1 month prior, weakness Hospital Course: Patient had an uneventful hospital course after admitted for colitis and placed on standard treatment with IVF and supportive care. COVID positive from col onization from 1 month ago. Patient had slow recovery complicated by emotional issues and difficulty with motivation. HLIVF and patient was able to ambulate in halls and patient was DC in improved condition. Needs C-scope within 6 weeks. Labs and Pending Lab Test: Laboratory Tests 02/25/21 05:33: White Blood Count 7.8, Red Blood Count 4.39, Hemoglobin 11.8, Hematocrit 37, Mean Corpuscular Volume 85, Mean Corpuscular Hemoglobin 27, Mean Corpuscular Hemoglobin Concent 32, Red Cell Distribution Width 12.9, Platelet Count 219, Mean Platelet Volume 9.9, Immature Granulocyte % (Auto) 1, Neutrophils (%) (Auto) 70, Lymphocytes (%) (Auto) 19, Monocytes (%) (Auto) 7, Eosinophils (%) (Auto) 3, Basophils (%) (Auto) 1, Neutrophils # (Auto) 5.4, Lymphocytes # (Auto) 1.5, Monocytes # (Auto) 0.5, Eosinophils # (Auto) 0.2, Basophils # (Auto) 0.0, Immature Granulocyte # (Auto) 0.1, Sodium Level 137, Potassium Level 3.6, Chloride Level 100, Carbon Dioxide Level 25, Anion Gap 12, Blood Urea Nitrogen 5L, Creatinine 0.69, Estimat Glomerular Filtration Rate 93, BUN/Creatinine Ratio 7, Glucose Level 111H, Calcium Level 9.4, Corrected Calcium 9.9, Total Bilirubin 0.2, Aspartate Amino Transf (AST/SGOT) 17, Alanine Aminotransferase (ALT/SGPT) 14, Alkaline Phosphatase 62, Total Protein 6.8, Albumin 3.4 Microbiology 02/22/21 C. difficile GDH Antigen & Toxins - Final, Complete 02/22/21 Stool Culture - Final, Complete 02/22/21 Blood Culture - Preliminary, Resulted No growth Home Meds Active Oxyir Tablet (Oxycodone HCl) 5 Mg Tab 5 Mg PO Q8H PRN Ciprofloxacin HCl 500 Mg Tablet 500 Mg PO BID Flagyl (Metronidazole) 500 Mg Tablet 500 Mg PO TID Pantoprazole Sodium 40 Mg Tablet.dr 40 Mg PO DAILY Reported Ventolin Hfa (Albuterol Sulfate) 18 Gm Hfa.aer.ad 2 Puff INH Q4H PRN Euthyrox (Levothyroxine Sodium) 75 Mcg Tablet 75 Mcg PO DAILY LAST FILLED 10-23-2020 #30/30 DAY SUPPLY Baclofen 5 Mg Tablet 5 Mg PO TID PRN Ativan (Lorazepam) 0.5 Mg Tablet 0.5 Mg PO BID PRN Divalproex Sodium 250 Mg Tablet.dr 250 Mg PO TID LAST FILLED 12-10-2020 #90/ DAY SUPPLY Bupropion Xl (Bupropion HCl) 300 Mg Tab.er.24h 300 Mg PO DAILY LAST FILLED 12-10-2020 #30/ DAY SUPPLY Assessment/Pt Instructions PCP 1 eli Nunez for colonoscopy Discharge Planning: <30 minutes discharge planning Discharge Instructions Discharge Diet: ADA Diet Activity as Tolerated: Yes Discharge Physical Examination Vital Signs Vital Signs Date Time Temp Pulse Resp B/P (MAP) Pulse Ox O2 Delivery O2 Flow Rate FiO2 02/25/21 09:00 36.7 80 20 92/55 (67) 97 Room Air General Appearance: No Apparent Distress, WD/WN, Chronically ill Allergies: Coded Allergies: acetaminophen (Verified Allergy, Unknown, 09/09/19) codeine (Verified Allergy, Unknown, 05/18/18) hydrocodone (Verified Allergy, Unknown, 05/18/18) latex (Verified Allergy, Unknown, 05/18/18) oseltamivir (Verified Allergy, Unknown, 05/18/18) tramadol (Verified Allergy, Unknown, 09/09/19) Discharge Summary Date of Admission Feb 22, 2021 at 02:51 Date of Discharge Discharge Date: Feb 25, 2021 Discharge Diagnosis Assessment: Colitis Nausea and vomiting Abdominal pain Fibromyalgia Covid positive Urinary retention requiring Carmen catheter Plan: Advance diet Decrease IV fluids DC Carmen catheter 02/24/21: DC home tomorrow Ambulate in halls today Flat affect JOHANA DILL DO Feb 25, 2021 11:02
[2021-02-25 12:56] VITALS: BP 92/55
--- NOTE | 2021-02-25 13:27 | Consultation - Surgery ---
History of Present Illness History of Present Illness Patient Consulted On(brando/time) 02/25/21 13:21 Allergies and Home Medications Allergies Coded Allergies: acetaminophen (Verified Allergy, Unknown, 09/09/19) codeine (Verified Allergy, Unknown, 05/18/18) hydrocodone (Verified Allergy, Unknown, 05/18/18) latex (Verified Allergy, Unknown, 05/18/18) oseltamivir (Verified Allergy, Unknown, 05/18/18) tramadol (Verified Allergy, Unknown, 09/09/19) Patient Home Medication List Albuterol Sulfate (Ventolin Hfa) 18 Gm Hfa.aer.ad, 2 PUFF INH Q4H PRN for SHORTNESS OF BREATH, (Reported) Entered as Reported by: ESTEE SANDOVAL on 02/25/21 0955 Last Action: Reviewed Baclofen (Baclofen) 5 Mg Tablet, 5 MG PO TID PRN for SPASMS, (Reported) Entered as Reported by: RAFAEL BLACK on 02/22/211538 Last Action: Reviewed Bupropion HCl (Bupropion Xl) 300 Mg Tab.er.24h, 300 MG PO DAILY, (Reported) Entered as Reported by: RAFAEL BLACK on 02/22/211538 Last Action: Reviewed Ciprofloxacin HCl (Ciprofloxacin HCl) 500 Mg Tablet, 500 MG PO BID Prescribed by: JOHANA DILL on 02/25/211099 Divalproex Sodium (Divalproex Sodium) 250 Mg Tablet.dr, 250 MG PO TID, (Reported) Entered as Reported by: RAFAEL BLACK on 02/22/211538 Last Action: Reviewed Levothyroxine Sodium (Euthyrox) 75 Mcg Tablet, 75 MCG PO DAILY, (Reported) Entered as Reported by: RAFAEL BLACK on 02/22/211538 Last Action: Reviewed Lorazepam (Ativan) 0.5 Mg Tablet, 0.5 MG PO BID PRN for ANXIETY, (Reported) Entered as Reported by: RAFAEL BLACK on 02/22/211538 Last Action: Reviewed Metronidazole (Flagyl) 500 Mg Tablet, 500 MG PO TID Prescribed by: JOHANA DILL on 02/25/21 1100 Oxycodone Hcl (Oxyir Tablet) 5 Mg Tab, 5 MG PO Q8H PRN for PAIN-MODERATE (5-7) Prescribed by: JOHANA DILL on 02/25/21 1101 Pantoprazole Sodium (Pantoprazole Sodium) 40 Mg Tablet., 40 MG PO DAILY Prescribed by: JOHANA DILL on 02/25/21 1100 Discontinued Medications Albuterol Sulfate (Proair Hfa) 1 Puff Puff, 2 PUFF IH Q4H Discontinued Reason: Duplicate Order Prescribed by: VAMSHI BLANCO on 01/24/21 1724 Last Action: Discontinued Amitriptyline HCl (Amitriptyline HCl) 25 Mg Tablet, (Reported) Entered as Reported by: SULEMAN EPSTEIN on 07/04/19 1601 Last Action: Discontinued Amoxicillin (Amoxicillin) 500 Mg Capsule, 500 MG PO TID Prescribed by: NAHID ZUNIGA on 09/29/18 1814 Last Action: Discontinued Duloxetine HCl (Duloxetine HCl) 30 Mg Capsule., (Reported) Entered as Reported by: SULEMAN EPSTEIN on 07/04/19 1601 Last Action: Discontinued Hydroxyzine Pamoate (Vistaril) 25 Mg Capsule, 25-50 MG PO Q6H Prescribed by: LUIS ANGEL LUJAN on 09/14/18 1637 Last Action: Discontinued Ibuprofen (Ibuprofen) 800 Mg Tablet, 800 MG PO Q8H PRN for PAIN Discontinued Reason: No Longer Taking Prescribed by: KATHARINE SHARP on 07/04/19 1749 Last Action: Discontinued Ibuprofen (Ibuprofen) 800 Mg Tablet, 800 MG PO Q8H PRN for PAIN Prescribed by: VAMSHI BLANCO on 10/19/20 0600 Last Action: Discontinued Levothyroxine Sodium (Levothyroxine Sodium) 75 Mcg Tablet, (Reported) Entered as Reported by: SULEMAN EPSTEIN on 07/04/19 1601 Last Action: Discontinued Omeprazole (Omeprazole) 40 Mg Capsule., 40 MG PO DAILY, (Reported) Discontinued Reason: No Longer Taking Entered as Reported by: RAFAEL BLACK on 02/22/21 1540 Last Action: Discontinued Ondansetron (Ondansetron Odt) 4 Mg Tab.rapdis, 4 MG PO Q6H PRN for NAUSEA/VOMITING Prescribed by: NAHID ZUNIGA on 05/18/18 0959 Last Action: Discontinued Ondansetron (Ondansetron Odt) 4 Mg Tab.rapdis, 4 MG PO tid PRN for NAUSEA/VOMITING-1ST LINE Prescribed by: KATHARINE SHARP on 07/04/19 1749 Last Action: Discontinued Prednisone (Prednisone) 50 Mg Tab, 50 MG PO DAILY Prescribed by: VAMSHI BLANCO on 01/24/21 1724 Last Action: Discontinued Pregabalin (Pregabalin) 75 Mg Capsule, (Reported) Entered as Reported by: SULEMAN EPSTEIN on 07/04/19 1601 Last Action: Discontinued Past Kagarvr-Plzjbh-Ocvijb Hx Patient Social History Smoking Status: Never a Smoker 2nd Hand Smoke Exposure: Yes Recent Hopitalizations: No Alcohol Use?: No Have you traveled recently?: No Immunizations Up To Date Tetanus Booster (TDap): More than 5yrs PED Vaccines UTD: Yes Seasonal Allergies Seasonal Allergies: No Surgeries History of Surgeries: Yes Surgeries: Section, Gallbladder, Hysterectomy, Tubal Ligation Respiratory History of Respiratory Disorde: Yes (FREQUENT ASTHMATIC BRONCHITIS) Cardiovascular History of Cardiac Disorders: No Neurological History of Neurological Disord: No 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 Genitourinary History of Genitourinary Disor: No Gastrointestinal History of Gastrointestinal Di: No Musculoskeletal History of Musculoskeletal Dis: Yes Musculoskeletal Disorders: Arthritis, Fibromyalgia Endocrine History of Endocrine Disorders: Yes Endocrine Disorders: Hypothyroidsim HEENT History of HEENT Disorders: No Cancer History of Cancer: No Psychosocial History of Psychiatric Problem: Yes Behavioral Health Disorders: Depression Integumentary History of Skin or Integumenta: No Blood Transfusions History of Blood Disorders: No Family Medical History Significant Family History: Heart Disease, Diabetes Physical Exam-General Problems Physical Exam Vital Signs Vital Signs - First Documented 02/21/21 23:30 Temp 36.5 Pulse 88 Resp 16 B/P (MAP) 114/67 (83) Pulse Ox 97 O2 Delivery Room Air Capillary Refill : Less Than 3 Seconds General Appearance: obese Data Review Labs Laboratory Tests 02/25/21 05:33: White Blood Count 7.8, Red Blood Count 4.39, Hemoglobin 11.8, Hematocrit 37, Mean Corpuscular Volume 85, Mean Corpuscular Hemoglobin 27, Mean Corpuscular Hemoglobin Concent 32, Red Cell Distribution Width 12.9, Platelet Count 219, Mean Platelet Volume 9.9, Immature Granulocyte % (Auto) 1, Neutrophils (%) (Auto) 70, Lymphocytes (%) (Auto) 19, Monocytes (%) (Auto) 7, Eosinophils (%) (Auto) 3, Basophils (%) (Auto) 1, Neutrophils # (Auto) 5.4, Lymphocytes # (Auto) 1.5, Monocytes # (Auto) 0.5, Eosinophils # (Auto) 0.2, Basophils # (Auto) 0.0, Immature Granulocyte # (Auto) 0.1, Sodium Level 137, Potassium Level 3.6, Chloride Level 100, Carbon Dioxide Level 25, Anion Gap 12, Blood Urea Nitrogen 5L, Creatinine 0.69, Estimat Glomerular Filtration Rate 93, BUN/Creatinine Ratio 7, Glucose Level 111H, Calcium Level 9.4, Corrected Calcium 9.9, Total Bilirubin 0.2, Aspartate Amino Transf (AST/SGOT) 17, Alanine Aminotransferase (ALT/SGPT) 14, Alkaline Phosphatase 62, Total Protein 6.8, Albumin 3.4 Microbiology 02/22/21 C. difficile GDH Antigen & Toxins - Final, Complete 02/22/21 Stool Culture - Final, Complete 02/22/21 Blood Culture - Preliminary, Resulted No growth TEOFILO TENORIO Feb 25, 2021 13:27
== END 2021-02-25 13:05 | disposition home or self-care (01) ==
LOC: EDUNIT# 23:28 → ER FS 23:31 → INTOOBSV 02-22 02:51 → 4TH 02-22 02:51
PROVIDERS: ADMIT Family Medicine; ATTEND Internal Medicine
DX: K52.9 Noninfective gastroenteritis and colitis, unspecified (principal); U07.1 COVID-19; J45.909 Unspecified asthma, uncomplicated; R33.9 Retention of urine, unspecified; M19.90 Unspecified osteoarthritis, unspecified site; M79.7 Fibromyalgia; F32.9 Major depressive disorder, single episode, unspecified; F41.9 Anxiety disorder, unspecified; K21.9 Gastro-esophageal reflux disease without esophagitis; E03.9 Hypothyroidism, unspecified; Z79.899 Other long term (current) drug therapy; Z79.82 Long term (current) use of aspirin; Z79.1 Long term (current) use of non-steroidal anti-inflammatories (NSAID); Z79.890 Hormone replacement therapy
CPT/HCPCS: 36415; 74177; 80048; 80053; 83605; 83690; 83735; 85007; 85025; 85027; 87015; 87040; 87045; 87046; 87324; 87449; 87636; 87899; 94760; 96374; G0378

== ENCOUNTER → 2021-03-12 | Outpatient (CLI) | payer MEDICAID ==
[~2021-03-12] MED LIST changes: +ALBU18HF2 INH; +BACL5TAB PO; +BUPR300T98 PO; +CIPR500T5 PO; +DIVA-74 PO; +LEVO75TA97 PO; +LORA-404 PO; +METR500T PO; +OMEP40CA6 PO; +OXC5T PO; +PANT40TA52 PO
--- NOTE | 2021-03-12 15:45 | Diagnostic Imaging Report ---
INDICATION: Back pain. TIME OF EXAM: 2:25 PM 3 views of the lumbar spine were obtained. Alignment is normal. Vertebral body heights are well maintained. Disc spaces are fairly well maintained. No fracture or subluxation is identified. There is mild degenerative disease L1-L2 level with marginal spurring. IMPRESSION: No acute abnormality is detected. Dictated by: Dictated on workstation # [id number]
== END ==
LOC: RAD FS 14:11
PROVIDERS: ATTEND Family Medicine
DX: M54.10 Radiculopathy, site unspecified (principal)
CPT/HCPCS: 72100

== ENCOUNTER → 2021-03-13 | Outpatient (CLI) | payer MEDICAID ==
--- NOTE | 2021-03-13 10:44 | Diagnostic Imaging Report ---
Indication: Neck pain. Numbness of the legs. COMPARISON: None FINDINGS: Frontal, lateral, and open-mouth radiographic views of the cervical spine were obtained. Cervical spine is seen down to C7-T1 level on the lateral view. Static alignment is maintained. There is no significant anteroretrolisthesis. There is no evidence of jumped facets. The open-mouth view shows normal C1-C2 relationship Vertebral body heights are maintained. There is no acute fracture. There are degenerative changes of the C6-C7 level consistent with intervertebral disc height loss with anterior osteophyte formations. Included portions lung apices are clear. IMPRESSION: 1. No acute fracture or dislocation cervical spine. Dictated by: Dictated on workstation # [id number]
== END ==
LOC: RAD FS 10:07
PROVIDERS: ATTEND Family Medicine
DX: M54.12 Radiculopathy, cervical region (principal); R20.2 Paresthesia of skin
CPT/HCPCS: 72040

== ENCOUNTER → 2021-03-21 | Outpatient (CLI) | payer MEDICAID ==
[~2021-03-21] MED LIST changes: +GADOTERATE 0.5 MMOL/ML (CLARISCAN) 20 ML VIAL IV ONE
--- NOTE | 2021-03-21 10:24 | Diagnostic Imaging Report ---
PROCEDURE: MR imaging cervical spine without contrast. TECHNIQUE: Multiplanar, multisequence MR imaging of the cervical spine was performed without contrast. INDICATION: Neck pain. Difficulty walking. COMPARISON: 03/13/2021. FINDINGS: No acute fracture or dislocation is seen in the cervical spine. There is normal alignment of the cervical spine. The vertebral body heights and disc spaces are well maintained. The bone marrow signal is unremarkable. No focal osseous lesions. The craniocervical junction is maintained. T2 hyperintense signal is visualized within the cervical spinal cord and the left aspect of the cervical spinal cord at the C2-C3 level, within the posterior aspect of the cervical spinal cord at the midline at the C4 level, and partially visualized T2 hyperintense signal within the central cervical spinal cord at the T3 level. No epidural collections are seen. The included brainstem and posterior fossa have normal appearance. Multilevel degenerative changes are seen in the cervical spine with posterior disc bulges and uncovertebral arthropathy. C2-C3: No significant spinal canal or foraminal stenosis. C3-C4: Uncovertebral arthropathy results in no significant spinal canal narrowing and moderate right and no left foraminal narrowing. C4-C5: Uncovertebral arthropathy results in no significant spinal canal narrowing and no right and mild left foraminal narrowing. C5-C6: Uncovertebral arthropathy results in no significant spinal canal narrowing and no significant foraminal narrowing. C6-C7: Uncovertebral arthropathy results in no significant spinal canal narrowing and no significant foraminal narrowing. C7-T1: No significant spinal canal or foraminal stenosis. The soft tissues of neck are unremarkable. IMPRESSION: 1. Focal T2 hyperintense signal in the cervical spinal cord at the C2-C3 level and C4 level with partially visualized T2 hyperintense signal in the upper thoracic spinal cord at the T3 level. 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 Demyelination would also be a consideration. 2. No acute fracture or dislocation in the cervical spine. 3. Multilevel degenerative changes in the cervical spine, greatest at C3-C4 and C4-C5. No significant spinal canal stenosis. Findings were discussed with Dr. Phil Aguilar at 10:30 AM on 03/21/[address] Bo Doe. Dictated by: Dictated on workstation # [id number]
--- NOTE | 2021-03-21 10:41 | Diagnostic Imaging Report ---
PROCEDURE: MR imaging of the brain with and without contrast. TECHNIQUE: Multiplanar, multisequence MR imaging of the brain was performed with and without contrast. INDICATION: Difficulty walking. Vision and hearing problems. COMPARISON: CT head on 02/14/2021. FINDINGS: No acute ischemia, mass, or hemorrhage. No abnormal enhancement is seen. Patchy areas of T2 hyperintense signal are seen in the bilateral middle cerebellar peduncles, bilateral basal ganglia predominantly within the posterior limbs of the internal capsules, bilateral covington radiata, and distal body and splenium of the corpus callosum. The ventricles, cortical sulci, and basilar cisterns are symmetric and unremarkable. No evidence of hydrocephalus. The sellar and suprasellar regions have a normal appearance. The major intracranial flow voids are intact. The course of the 7th and 8th cranial nerves is unremarkable. No evidence of CPA mass. The inner ear structures have a normal MR appearance. The Meckel's caves and cavernous sinuses are unremarkable. A small amount of retained secretions are seen in the left maxillary sinus. Otherwise, the paranasal sinuses and mastoid air cells demonstrate normal signal characteristics. The globes and orbits are symmetric and unremarkable. The scalp and calvarium have a normal appearance. IMPRESSION: 1. Patchy T2 hyperintense signal within the bilateral middle cerebellar peduncles and splenium of the corpus callosum. Additional T2 hyperintense signal seen in the bilateral basal ganglia and covington radiata. 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 Alternatively, demyelinating disease could be considered. Recommend genetic counseling and follow-up as indicated. 2. No acute ischemia, mass, or hemorrhage. No abnormal enhancement. 3. Unremarkable appearance of the bilateral 7th and 8th cranial nerves. Findings were discussed with Dr. Phil Aguilar at 10:30 AM on 03/21/[address] Bo Doe. Dictated by: Dictated on workstation # [id number]
== END ==
LOC: RAD 07:41
PROVIDERS: ATTEND Family Medicine
DX: M47.22 Other spondylosis with radiculopathy, cervical region (principal); H54.62 Unqualified visual loss, left eye, normal vision right eye; H91.92 Unspecified hearing loss, left ear
CPT/HCPCS: 70553; 72141

== ENCOUNTER → 2021-04-16 | Outpatient (CLI) | payer MEDICAID ==
[~2021-04-16] MED LIST changes: -GADOTERATE 0.5 MMOL/ML (CLARISCAN) 20 ML VIAL IV ONE
== END | disposition home or self-care (01) ==
LOC: PREOP 05:35
PROVIDERS: ATTEND Surgery
DX: Z01.818 Encounter for other preprocedural examination (principal)

== ENCOUNTER → 2021-06-24 | Outpatient (CLI) | payer MEDICAID ==
--- NOTE | 2021-06-24 13:15 | Diagnostic Imaging Report ---
INDICATION: Right foot pain COMPARISON: None. FINDINGS: 3 views of the right foot demonstrate no acute fracture or dislocation. There are no focal osseous lesions. There is no significant soft tissue swelling. Joint spaces are well maintained. No radiopaque foreign bodies are seen. IMPRESSION: No acute fractures or dislocations of the right foot. Dictated by: Dictated on workstation # [id number]
== END ==
LOC: RAD FS 11:24
PROVIDERS: ATTEND Family Medicine
DX: M79.671 Pain in right foot (principal)
CPT/HCPCS: 73630

== ENCOUNTER 2021-11-01 11:42 | Emergency (ER) | payer MEDICAID ==
[2021-11-01] MEDS ORDERED: NS IV 1000 ML 1,000 ML IV STA (13:03)
--- NOTE | 2021-11-01 13:11 | ED General ---
General Chief Complaint: General Problems/Pain Stated Complaint: ADAIR, DIZZINESS,LOC TWICE Source of Information: Patient Exam Limitations: No Limitations History of Present Illness Date Seen by Provider: Nov 01, 2021 Time Seen by Provider: 13:06 Initial Comments This is a 41-year-old female who reports being homeless that presents to the emergency room for evaluation of generalized malaise and dizziness. She states that she has been living out of her van and that it broke down and she has not had any air conditioning and feels she may be dehydrated. She states that she "passed out" yesterday which she further elaborates was her falling asleep in her car and then not waking up until 630 this morning. She states that she came here because she feels fatigued and generally weak and dehydrated. She is not having any active chest pain, headache, blurry vision, double vision, nausea, vomiting, cough or congestion. Timing/Duration: 1 Day Severity: Moderate Allergies and Home Medications Allergies Coded Allergies: acetaminophen (Verified Allergy, Unknown, 09/09/19) codeine (Verified Allergy, Unknown, 05/18/18) hydrocodone (Verified Allergy, Unknown, 05/18/18) latex (Verified Allergy, Unknown, 05/18/18) oseltamivir (Verified Allergy, Unknown, 05/18/18) tramadol (Verified Allergy, Unknown, 09/09/19) Patient Home Medication List Home Medication List Reviewed: Yes Albuterol Sulfate (Ventolin Hfa) 18 Gm Hfa.aer.ad, 2 PUFF INH Q4H PRN for SHORTNESS OF BREATH, (Reported) Entered as Reported by: ESTEE SANDOVAL on 02/25/21 0955 Baclofen (Baclofen) 5 Mg Tablet, 5 MG PO TID PRN for SPASMS, (Reported) Entered as Reported by: RAFAEL BLACK on 02/22/21 1539 Bupropion HCl (Bupropion Xl) 300 Mg Tab.er.24h, 300 MG PO DAILY, (Reported) Entered as Reported by: RAFAEL BLACK on 02/22/21 1539 Ciprofloxacin HCl (Ciprofloxacin HCl) 500 Mg Tablet, 500 MG PO BID Prescribed by: JOHANA DILL on 02/25/21 1100 Divalproex Sodium (Divalproex Sodium) 250 Mg Tablet.dr, 250 MG PO TID, (Reported) Entered as Reported by: RAFAEL BLACK on 02/22/21 1539 Levothyroxine Sodium (Euthyrox) 75 Mcg Tablet, 75 MCG PO DAILY, (Reported) Entered as Reported by: RAFAEL BLACK on 02/22/21 153 Lorazepam (Ativan) 0.5 Mg Tablet, 0.5 MG PO BID PRN for ANXIETY, (Reported) Entered as Reported by: RAFAEL BLACK on 02/22/21 153 Metronidazole (Flagyl) 500 Mg Tablet, 500 MG PO TID Prescribed by: JOHANA DILL on 02/25/21 1100 Oxycodone Hcl (Oxyir Tablet) 5 Mg Tab, 5 MG PO Q8H PRN for PAIN-MODERATE (5-7) Prescribed by: JOHANA DILL on 02/25/21 1101 Pantoprazole Sodium (Pantoprazole Sodium) 40 Mg Tablet.dr, 40 MG PO DAILY Prescribed by: JOHANA DILL on 02/25/21 1100 Review of Systems Review of Systems Constitutional: malaise, weight gain EENTM: no symptoms reported Respiratory: no symptoms reported Cardiovascular: no symptoms reported Gastrointestinal: no symptoms reported Genitourinary: no symptoms reported Musculoskeletal: no symptoms reported Skin: no symptoms reported Psychiatric/Neurological: Denies Headache, Denies Numbness, Denies Paresthesia, Denies Seizure Hematologic/Lymphatic: No Symptoms Reported Past [id number]-[id number] Hx Patient Social History Tobacco Use?: No Use of E-Cig and/or Vaping dev: No Substance use?: No Alcohol Use?: Yes Alcohol type: Beer Alcohol Frequency: Rarely Pt feels they are or have been: No Immunizations Up To Date Tetanus Booster (TDap): More than 5yrs PED Vaccines UTD: Yes First/Initial COVID19 Vaccinat: 10/30/21 COVID19 Vaccine 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: [employer] Seasonal Allergies Seasonal Allergies: No Past Medical History Surgery/Hospitalization HX: Ocular Migraine, COVID 19, GERD, TREMORS HYSTO, TUBAL, [place], Surgeries: Yes Section, Gallbladder, Hysterectomy, Tubal Ligation Respiratory: Yes (FREQUENT ASTHMATIC BRONCHITIS) Cardiac: No Neurological: No SHUTTLE HAND History: Hysterectomy Genitourinary: No Gastrointestinal: No Musculoskeletal: Yes Arthritis, Fibromyalgia Endocrine: Yes Hypothyroidsim HEENT: No Cancer: No Psychosocial: Yes Depression Integumentary: No Blood Disorders: No Family Medical History Heart Disease, Diabetes Physical Exam Vital Signs Vital Signs - First Documented 11/01/21 12:38 Temp 36.0 Pulse 88 Resp 16 B/P (MAP) 105/69 (81) Capillary Refill : Height, Weight, BMI Height: 5'2.00" Weight: 247lbs. oz. 112.917264nt; 40.65 BMI Method:Stated General Appearance: No Apparent Distress, WD/WN HEENT: PERRL/EOMI, TMs Normal, Normal ENT Inspection, Pharynx Normal Neck: Full Range of Motion, Normal Inspection, Supple Respiratory: Chest Non Tender, Lungs Clear, Normal Breath Sounds Cardiovascular: Regular Rate, Rhythm, No Edema, No Murmur Gastrointestinal: Normal Bowel Sounds, No Organomegaly, Non Tender Back: Normal Inspection, No CVA Tenderness Extremity: Normal Capillary Refill, Normal Inspection, Non Tender Neurologic/Psychiatric: Alert, Oriented x3, No Motor/Sensory Deficits, Normal Mood/Affect, wing coverer II-XII Norm as Tested Skin: Normal Color, Warm/Dry Lymphatic: No Adenopathy Progress/Results/Core Measures Suspected Sepsis SIRS Temperature: Pulse: Respiratory Rate: Laboratory Tests 11/01/21 13:12: White Blood Count 9.1 Blood Pressure / Mean: Laboratory Tests 11/01/21 13:12: Creatinine 0.69, Platelet Count 228, Total Bilirubin 0.2 Results/Orders Lab Results Laboratory Tests Test 11/01/21 13:12 Range/Units White Blood Count 9.1 4.3-11.0 10^3/uL Red Blood Count 4.31 3.80-5.11 10^6/uL Hemoglobin 11.8 11.5-16.0 g/dL Hematocrit 37 35-52 % Mean Corpuscular Volume 86 80-99 fL Mean Corpuscular Hemoglobin 27 25-34 pg Mean Corpuscular Hemoglobin Concent 32 32-36 g/dL Red Cell Distribution Width 13.7 10.0-14.5 % Platelet Count 228 130-400 10^3/uL Mean Platelet Volume 9.6 9.0-12.2 fL Immature Granulocyte % (Auto) 1 % Neutrophils (%) (Auto) 63 42-75 % Lymphocytes (%) (Auto) 24 12-44 % Monocytes (%) (Auto) 10 0-12 % Eosinophils (%) (Auto) 2 0-10 % Basophils (%) (Auto) 1 0-10 % Neutrophils # (Auto) 5.8 1.8-7.8 10^3/uL Lymphocytes # (Auto) 2.1 1.0-4.0 10^3/uL Monocytes # (Auto) 0.9 0.0-1.0 10^3/uL Eosinophils # (Auto) 0.2 0.0-0.3 10^3/uL Basophils # (Auto) 0.1 0.0-0.1 10^3/uL Immature Granulocyte # (Auto) 0.1 0.0-0.1 10^3/uL Sodium Level 139 135-145 MMOL/L Potassium Level 3.3 L 3.6-5.0 MMOL/L Chloride Level 103 98-107 MMOL/L Carbon Dioxide Level 27 21-32 MMOL/L Anion Gap 9 5-14 MMOL/L Blood Urea Nitrogen 15 7-18 MG/DL Creatinine 0.69 0.60-1.30 MG/DL Estimat Glomerular Filtration Rate 110 BUN/Creatinine Ratio 22 Glucose Level 110 H 70-105 MG/DL Calcium Level 8.6 8.5-10.1 MG/DL Corrected Calcium 9.1 8.5-10.1 MG/DL Total Bilirubin 0.2 0.1-1.0 MG/DL Aspartate Amino Transf (AST/SGOT) 39 H 5-34 U/L Alanine Aminotransferase (ALT/SGPT) 47 0-55 U/L Alkaline Phosphatase 95 40-136 U/L Total Protein 7.0 6.4-8.2 GM/DL Albumin 3.4 3.2-4.5 GM/DL My Orders Orders - BRIGID ASHBY PA Ed Iv/Invasive Line Start (11/01/21 13:03) Cbc With Automated Diff (11/01/21 13:03) Comprehensive Metabolic Panel (11/01/21 13:03) Chest 1 View, Ap/Pa Only (11/01/21 13:03) Ns Iv 1000 Ml (Sodium Chloride 0.9%) (11/01/21 13:03) General/Regular (11/01/21 Lunch) Vital Signs/I&O 11/01/21 12:38 Temp 36.0 Pulse 88 Resp 16 B/P (MAP) 105/69 (81) Capillary Refill : Departure Communication (PCP) Patient is afebrile, nontoxic and in no distress. She does appear slightly dehydrated on physical exam but feels markedly improved after IV hydration. Lab work is reassuring. Chest x-ray normal. Patient will be discharged home in stable condition at this time. Impression Primary Impression: Malaise and fatigue Disposition: HOME, SELF-CARE Condition: Stable Departure-Patient Inst. Decision time for Depature: 13:52 Referrals: SELF,LAKISHA STANTON (PCP/Family) Primary Care Physician Patient Instructions: Fatigue Add. Discharge Instructions: Please continue to drink plenty of water as we discussed. Follow-up closely with your primary care doctor. Return to the emergency room with any severe changes or worsening of symptoms. All discharge instructions reviewed with patient and/or family. Voiced understanding. BRIGID ASHBY Nov 01, 2021 13:11
[2021-11-01 13:23] LABS: BASOPHILS # (AUTO) 0.1 10^3/uL (0.0-0.1); BASOPHILS % (AUTO) 1 % (0-10); EOSINOPHILS # (AUTO) 0.2 10^3/uL (0.0-0.3); EOSINOPHILS % (AUTO) 2 % (0-10); HEMATOCRIT 37 % (35-52); HEMOGLOBIN 11.8 g/dL (11.5-16.0); LYMPHOCYTES # (AUTO) 2.1 10^3/uL (1.0-4.0); LYMPHOCYTES % (AUTO) 24 % (12-44); MEAN CORPUSCULAR HEMOGLOBIN 27 pg (25-34); MEAN CORPUSCULAR HGB CONC 32 g/dL (32-36); MEAN CORPUSCULAR VOLUME 86 fL (80-99); MEAN PLATELET VOLUME 9.6 fL (9.0-12.2); MONOCYTES # (AUTO) 0.9 10^3/uL (0.0-1.0); MONOCYTES % (AUTO) 10 % (0-12); NEUTROPHILS # (AUTO) 5.8 10^3/uL (1.8-7.8); NEUTROPHILS % (AUTO) 63 % (42-75); PLATELET COUNT 228 10^3/uL (130-400); WHITE BLOOD COUNT 9.1 10^3/uL (4.3-11.0)
[2021-11-01 13:33] LABS: ALBUMIN 3.4 GM/DL (3.2-4.5); POTASSIUM 3.3 MMOL/L (3.6-5.0)
[2021-11-01 13:34] LABS: CALCIUM 8.6 MG/DL (8.5-10.1)
[2021-11-01 13:37] LABS: BILIRUBIN,TOTAL 0.2 MG/DL (0.1-1.0)
[2021-11-01 13:39] LABS: CREATININE SERUM 0.69 MG/DL (0.60-1.30)
--- NOTE | 2021-11-01 13:44 | Diagnostic Imaging Report ---
Indication: Fatigue. Time of Exam: 1:34 PM Correlation is made with prior chest from 01/24/2021. Findings: The heart size is normal. The pulmonary vascularity is unremarkable. The lungs are clear. No infiltrate, effusion or pneumothorax is detected. Impression: No acute cardiopulmonary process is detected. Dictated by: Dictated on workstation # [id number]
[2021-11-01 14:31] VITALS: BP 115/71
== END 2021-11-01 14:32 | disposition home or self-care (01) ==
LOC: EDUNIT# 11:42 → ER 11:44
DX: R53.83 Other fatigue (principal); R53.81 Other malaise
CPT/HCPCS: 36415; 71045; 80053; 85025

== ENCOUNTER 2022-03-09 14:40 | Emergency (ER) | payer MEDICAID ==
[~2022-03-09] VITALS: Ht 157.5 cm; Wt 78.9 kg
[~2022-03-09 14:40] MED LIST changes: +ALBU8.5H6 IH; -RT-ALBUINH IH
[2022-03-09] MEDS ORDERED: NS IV 1000 ML 1,000 ML IV STA (15:06)
[2022-03-09 15:13] LABS: BILIRUBIN,URINE NEGATIVE (NEGATIVE); COLOR,URINE YELLOW; GLUCOSE, URINE (UA) NEGATIVE (NEGATIVE); KETONES,URINE NEGATIVE (NEGATIVE); LEUKOCYTE ESTERASE ,URINE 1+ (NEGATIVE); NITRITE,URINE POSITIVE (NEGATIVE); PROTEIN,URINE TRACE (NEGATIVE)
[2022-03-09 15:13] LABS: BASOPHILS % (AUTO) 0 % (0-10); EOSINOPHILS # (AUTO) 0.1 10^3/uL (0.0-0.3); EOSINOPHILS % (AUTO) 1 % (0-10); HEMATOCRIT 34 % (35-52); HEMOGLOBIN 11.1 g/dL (11.5-16.0); LYMPHOCYTES # (AUTO) 2.1 10^3/uL (1.0-4.0); LYMPHOCYTES % (AUTO) 20 % (12-44); MEAN CORPUSCULAR HEMOGLOBIN 27 pg (25-34); MEAN CORPUSCULAR HGB CONC 33 g/dL (32-36); MEAN CORPUSCULAR VOLUME 83 fL (80-99); MEAN PLATELET VOLUME 9.6 fL (9.0-12.2); MONOCYTES # (AUTO) 0.9 10^3/uL (0.0-1.0); MONOCYTES % (AUTO) 9 % (0-12); NEUTROPHILS # (AUTO) 7.3 10^3/uL (1.8-7.8); NEUTROPHILS % (AUTO) 70 % (42-75); PLATELET COUNT 269 10^3/uL (130-400); WHITE BLOOD COUNT 10.6 10^3/uL (4.3-11.0)
[2022-03-09 15:14] LABS: BACTERIA,URINE LARGE /HPF; CLARITY,URINE CLOUDY; SQUAMOUS EPITHELIAL CELL,UR >50 /HPF; WBC,URINE >100 /HPF
[2022-03-09] MEDS ORDERED: KETOROLAC 30 MG/ML VIAL IVP ONE (15:15)
[2022-03-09] MEDS ORDERED: PROCHLORPERAZINE 10 MG/2ML INJ (COMPAZINE) IV ONE (15:15)
[2022-03-09] MEDS ORDERED: diphenhydrAMINE 50 MG/ML INJ (BENADRYL) IVP ONE (15:15)
--- NOTE | 2022-03-09 15:16 | ED General ---
General Chief Complaint: Chest Pain Stated Complaint: CHEST PAIN Nursing Triage Note: Patient reports she had an episode of epigastric pain that wraps around her right rib cage and into her lower back at 2 am this morning, then again today while shopping with her son. She reports she has been "basically homeless" since her mother in July. She states she lives in an unheated, uncooled garage. She reports she had COVID 1 year ago and has had fdc effects. She reports painful urination, bilateral leg swelling, and a migraine as well. Source of Information: Patient Exam Limitations: No Limitations History of Present Illness Date Seen by Provider: Mar 09, 2022 Time Seen by Provider: 14:43 Initial Comments 42-year-old female with past medical history of fibromyalgia and essentially homeless living in a garage without any electricity or running water coming in due to multiple issues. Most notably, at 2 AM she started noticing chest discomfort, pressure-like pain, constant all day. Has some epigastric burning as well, dysuria for several weeks, and chronic headache. States she may have had a low-grade fever this morning, but had a negative COVID test today. Denies any cough, nausea, vomiting, diarrhea, focal weakness or numbness, vision changes, rash, or any other concerns Allergies and Home Medications Allergies Coded Allergies: acetaminophen (Verified Allergy, Unknown, 09/09/19) codeine (Verified Allergy, Unknown, 05/18/18) hydrocodone (Verified Allergy, Unknown, 05/18/18) latex (Verified Allergy, Unknown, 05/18/18) oseltamivir (Verified Allergy, Unknown, 05/18/18) tramadol (Verified Allergy, Unknown, 09/09/19) Patient Home Medication List Home Medication List Reviewed: Yes Albuterol Sulfate (Ventolin Hfa) 18 Gm Hfa.aer.ad, 2 PUFF INH Q4H PRN for SHORTNESS OF BREATH, (Reported) Entered as Reported by: ESTEE SANDOVAL on 02/25/21 0955 Baclofen (Baclofen) 5 Mg Tablet, 5 MG PO TID PRN for SPASMS, (Reported) Entered as Reported by: RAFAEL BLACK on 02/22/21 1539 Bupropion HCl (Bupropion Xl) 300 Mg Tab.er.24h, 300 MG PO DAILY, (Reported) Entered as Reported by: RAFAEL BLACK on 02/22/21 1539 Cefdinir (Cefdinir) 300 Mg Capsule, 300 MG PO BID Prescribed by: MARIE MEEK on 03/09/22 154 Ciprofloxacin HCl (Ciprofloxacin HCl) 500 Mg Tablet, 500 MG PO BID Prescribed by: JOHANA DILL on 02/25/21 1100 Divalproex Sodium (Divalproex Sodium) 250 Mg Tablet.dr, 250 MG PO TID, (Report ed) Entered as Reported by: RAFAEL BLACK on 02/22/21 153 Levothyroxine Sodium (Euthyrox) 75 Mcg Tablet, 75 MCG PO DAILY, (Reported) Entered as Reported by: RAFAEL BLACK on 02/22/21 153 Lorazepam (Ativan) 0.5 Mg Tablet, 0.5 MG PO BID PRN for ANXIETY, (Reported) Entered as Reported by: RAFAEL BLACK on 02/22/21 153 Metronidazole (Flagyl) 500 Mg Tablet, 500 MG PO TID Prescribed by: JOHANA DILL on 02/25/21 1100 Oxycodone Hcl (Oxyir Tablet) 5 Mg Tab, 5 MG PO Q8H PRN for PAIN-MODERATE (5-7) Prescribed by: JOHANA DILL on 02/25/21 1101 Pantoprazole Sodium (Pantoprazole Sodium) 40 Mg Tablet.dr, 40 MG PO DAILY Prescribed by: JOHANA DILL on 02/25/21 1100 Review of Systems Review of Systems Constitutional: malaise EENTM: no symptoms reported Respiratory: no symptoms reported Cardiovascular: chest pain Gastrointestinal: abdominal pain Genitourinary: no symptoms reported Musculoskeletal: no symptoms reported Skin: no symptoms reported Psychiatric/Neurological: Headache Hematologic/Lymphatic: No Symptoms Reported Immunological/Allergic: no symptoms reported All Other Systems Reviewed Negative Unless Noted: Yes Past Incrwgy-Zcgyom-Pbhfdp Hx Patient Social History Tobacco Use?: No Use of E-Cig and/or Vaping dev: No Substance use?: No Alcohol Use?: No Pt feels they are or have been: No Immunizations Up To Date Tetanus Booster (TDap): More than 5yrs PED Vaccines UTD: Yes First/Initial COVID19 Vaccinat: 10/30/21 Second COVID19 Vaccination Isak: 10/30/21 Third COVID19 Vaccination Date: 10/30/21 Seasonal Allergies Seasonal Allergies: No Past Medical History Surgery/Hospitalization HX: Ocular Migraine, COVID 19, GERD, TREMORS HYSTO, TUBAL, [place], Surgeries: Yes Section, Gallbladder, Hysterectomy, Tubal Ligation Respiratory: Yes (FREQUENT ASTHMATIC BRONCHITIS) Cardiac: No Neurological: No 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 oz. 112.960403bs; 31.00 BMI Method:Stated General Appearance: No Apparent Distress, WD/WN Eyes: Bilateral Eye Normal Inspection HEENT: PERRL/EOMI, Normal ENT Inspection, Pharynx Normal Neck: Full Range of Motion, Normal Inspection, Non Tender, Supple Respiratory: Chest Non Tender, Lungs Clear, Normal Breath Sounds, No Accessory Muscle Use, No Respiratory Distress Cardiovascular: Regular Rate, Rhythm, No Edema, Normal Peripheral Pulses Gastrointestinal: Normal Bowel Sounds, Non Tender, Soft; No Distended, No Guarding Back: Normal Inspection, No CVA Tenderness, No Vertebral Tenderness Extremity: Normal Capillary Refill, Normal Inspection, Normal Range of Motion, Non Tender, No Calf Tenderness, No Pedal Edema Neurologic/Psychiatric: Alert, Oriented x3, No Motor/Sensory Deficits, Normal Mood/Affect, pulp grinder II-XII Norm as Tested, Other (Normal gait) Skin: Normal Color, Warm/Dry, Other (Numerous areas of skin picking on extremities) Lymphatic: No Adenopathy Progress/Results/Core Measures Suspected Sepsis SIRS Temperature: Pulse: 98 Respiratory Rate: 14 Laboratory Tests 03/09/22 14:45: White Blood Count 10.6 Blood Pressure 98 /60 Mean: 73 Laboratory Tests 03/09/22 14:45: Creatinine 0.75, Platelet Count 269, Total Bilirubin 0.4 Results/Orders Lab Results Laboratory Tests Test 03/09/22 14:43 03/09/22 14:45 Range/Units Urine Color YELLOW Urine Clarity CLOUDY Urine pH 6.0 5-9 Urine Specific [place] 1.020 1.016-1.022 Urine Protein TRACE H NEGATIVE Urine Glucose (UA) NEGATIVE NEGATIVE Urine Ketones NEGATIVE NEGATIVE Urine Nitrite POSITIVE H NEGATIVE Urine Bilirubin NEGATIVE NEGATIVE Urine Urobilinogen 0.2 < = 1.0 MG/DL Urine Leukocyte Esterase 1+ H NEGATIVE Urine RBC (Auto) TRACE-I H NEGATIVE Urine RBC NONE /HPF Urine WBC >100 H /HPF Urine Squamous Epithelial Cells >50 H /HPF Urine Crystals NONE /LPF Urine Bacteria LARGE H /HPF Urine Casts NONE /LPF Urine Mucus NEGATIVE /LPF Urine Culture Indicated NO Urine Opiates Screen NEGATIVE NEGATIVE Urine Oxycodone Screen NEGATIVE NEGATIVE Urine Methadone Screen NEGATIVE NEGATIVE Urine Propoxyphene Screen NEGATIVE NEGATIVE Urine Barbiturates Screen NEGATIVE NEGATIVE Ur Tricyclic Antidepressants Screen NEGATIVE NEGATIVE Urine Phencyclidine Screen NEGATIVE NEGATIVE Urine Amphetamines Screen POSITIVE H NEGATIVE Urine Methamphetamines Screen POSITIVE H NEGATIVE Urine Benzodiazepines Screen NEGATIVE NEGATIVE Urine Cocaine Screen NEGATIVE NEGATIVE Urine Cannabinoids Screen NEGATIVE NEGATIVE White Blood Count 10.6 4.3-11.0 10^3/uL Red Blood Count 4.07 3.80-5.11 10^6/uL Hemoglobin 11.1 L 11.5-16.0 g/dL Hematocrit 34 L 35-52 % Mean Corpuscular Volume 83 80-99 fL Mean Corpuscular Hemoglobin 27 25-34 pg Mean Corpuscular Hemoglobin Concent 33 32-36 g/dL Red Cell Distribution Width 13.2 10.0-14.5 % Platelet Count 269 130-400 10^3/uL Mean Platelet Volume 9.6 9.0-12.2 fL Immature Granulocyte % (Auto) 0 % Neutrophils (%) (Auto) 70 42-75 % Lymphocytes (%) (Auto) 20 12-44 % Monocytes (%) (Auto) 9 0-12 % Eosinophils (%) (Auto) 1 0-10 % Basophils (%) (Auto) 0 0-10 % Neutrophils # (Auto) 7.3 1.8-7.8 10^3/uL Lymphocytes # (Auto) 2.1 1.0-4.0 10^3/uL Monocytes # (Auto) 0.9 0.0-1.0 10^3/uL Eosinophils # (Auto) 0.1 0.0-0.3 10^3/uL Basophils # (Auto) 0.0 0.0-0.1 10^3/uL Immature Granulocyte # (Auto) 0.0 0.0-0.1 10^3/uL Sodium Level 138 135-145 MMOL/L Potassium Level 3.1 L 3.6-5.0 MMOL/L Chloride Level 100 98-107 MMOL/L Carbon Dioxide Level 26 21-32 MMOL/L Anion Gap 12 5-14 MMOL/L Blood Urea Nitrogen 10 7-18 MG/DL Creatinine 0.75 0.60-1.30 MG/DL Estimat Glomerular Filtration Rate 101 BUN/Creatinine Ratio 13 Glucose Level 92 70-105 MG/DL Calcium Level 9.0 8.5-10.1 MG/DL Corrected Calcium 9.1 8.5-10.1 MG/DL Magnesium Level 2.1 1.6-2.4 MG/DL Total Bilirubin 0.4 0.1-1.0 MG/DL Aspartate Amino Transf (AST/SGOT) 10 5-34 U/L Alanine Aminotransferase (ALT/SGPT) 9 0-55 U/L Alkaline Phosphatase 115 40-136 U/L Troponin I < 0.30 <0.30 NG/ML Pro-B-Type Natriuretic Peptide 49.4 <125.0 PG/ML Total Protein 7.8 6.4-8.2 GM/DL Albumin 3.9 3.2-4.5 GM/DL Lipase 11 8-78 U/L Serum Alcohol < 10 <10 MG/DL My Orders Orders - MARIE MEEK MD Alcohol (03/09/22 15:06) Cbc With Automated Diff (03/09/22 15:06) Comprehensive Metabolic Panel (03/09/22 15:06) Drug Screen Stat (Urine) (03/09/22 15:06) Lipase (03/09/22 15:06) Magnesium (03/09/22 15:06) Ua Culture If Indicated (03/09/22 15:06) Probnp Fs (03/09/22 15:06) Troponin I Fs (03/09/22 15:06) Chest 1 View Ap/Pa Only (03/09/22 15:06) Ekg Tracing (03/09/22 15:06) Ketorolac Injection (Toradol Injection) (03/09/22 15:15) Prochlorperazine Injection (Compazine In (03/09/22 15:15) Diphenhydramine Injection (Benadryl Inje (03/09/22 15:15) Ns Iv 1000 Ml (Sodium Chloride 0.9%) (03/09/22 15:06) Ceftriaxone 1 Gm Pre-Mix (Rocephin 1 Gm (03/09/22 15:43) Potassium Chloride (Tablet) (K Dur Table (03/09/22 15:45) Olanzapine Orally Dissolve Tab (Zyprexa (03/09/22 15:45) Medications Given in ED Current Medications Medications Dose Ordered Sig/Tylor Route Start Time Stop Time Status Last Admin Dose Admin Diphenhydramine HCl 25 mg ONCE ONCE IVP 03/09/22 15:15 03/09/22 15:16 DC 03/09/22 15:24 25 MG Ketorolac Tromethamine 15 mg ONCE ONCE IVP 03/09/22 15:15 03/09/22 15:16 DC 03/09/22 15:24 15 MG Prochlorperazine Edisylate 10 mg ONCE ONCE IV 03/09/22 15:15 03/09/22 15:16 DC 03/09/22 15:24 10 MG Vital Signs/I&O 03/09/22 14:45 Temp 36.6 Pulse 98 Resp 14 B/P (MAP) 98/60 (73) Pulse Ox 100 O2 Delivery Room Air Capillary Refill : Less Than 3 Seconds Blood Pressure Mean: 73 Progress Note : Progress Note 42-year-old female with above history coming in due to numerous symptoms, most notably chest discomfort, dysuria, and headache. ABCs were intact and vitals were stable on presentation. Physical exam with soft and nontender abdomen. She does have multiple areas of skin picking on exam, although this is not a complaint of her today. UDS is positive for methamphetamine. EKG without ischemic changes and troponin negative. Chest x-ray my interpretation with no obvious pneumonia, pneumothorax, normal cardiac silhouette. Urinalysis consistent with infection. She was given IV ceftriaxone. Given she does have some flank pain as well as subjective fever at home, we will treat her more c onservatively with a prolonged course just in case this is early pyelonephritis. patient was given medications for headache via her IV as well as IV fluids. I believe she is stable for discharge with outpatient follow-up. She was at home with strict return precautions ECG Initial ECG Impression Date: Mar 09, 2022 Initial ECG Impression Time: 14:49 Initial ECG Rate: 96 Initial ECG Rhythm: Normal Sinus Comment Narrow QRS, normal axis, no significant ST changes or T wave abnormalities Diagnostic Imaging Diagonstic Imaging: Xray Plain Films/CT/US/NM/MRI: chest Comments [facility], [place] NAME: KIANA ERVIN [employer] REC#: [id number] PT STATUS: REG ER : 1980 PHYSICIAN: MARIE MEEK MD ADMIT DATE: 03/09/22/ER FS Signed Date of Exam:03/09/22 CHEST 1 VIEW AP/PA ONLY INDICATION Chest pain. COMPARISON: 11/01/2021. TECHNIQUE: Single radiograph of the chest dated March 09, 2022. FINDINGS: The cardiac silhouette is within normal limits in size. No significant pulmonary vascular congestion. The lungs are clear. No pleural effusion. No pneumothorax. No acute osseous abnormality. IMPRESSION: No acute cardiopulmonary abnormality. Dictated by: Dictated on workstation # [id number] Dict: 03/09/22 1534 Trans: 03/09/22 1545 [facility] [id number] Interpreted by: JACOB LUNDY MD Electronically signed by: JACOB LUNDY MD 03/09/22 1545 Departure Impression Primary Impression: Cystitis Disposition: 01 HOME, SELF-CARE Condition: Stable Departure-Patient Inst. Decision time for Depature: 16:00 Referrals: LAKISHA REYNOLDS MD (PCP/Family) Primary Care Physician Patient Instructions: Acute Cystitis (DC) Add. Discharge Instructions: Fortunately it does not appear like you are having a heart attack, and all of your other labs are reassuring except for your potassium was slightly low and you do have an infection in your bladder. You will be on antibiotics for the next 10 days. Scripts Cefdinir (Cefdinir) 300 Mg Capsule 300 MG PO BID for 10 Days, #20 CAP 0 Refills Prov: MARIE MEEK MD 03/09/22 MARIE MEEK MD Mar 09, 2022 15:15
[2022-03-09 15:17] LABS: ALANINE AMINOTRANSFERASE 9 U/L (0-55); ALBUMIN 3.9 GM/DL (3.2-4.5); ALKALINE PHOSPHATASE 115 U/L (40-136); BILIRUBIN,TOTAL 0.4 MG/DL (0.1-1.0); BUN/CREATININE RATIO 13; CARBON DIOXIDE 26 MMOL/L (21-32); CHLORIDE 100 MMOL/L (98-107); CREATININE SERUM 0.75 MG/DL (0.60-1.30); GFR ESTIMATED 101; GLUCOSE 92 MG/DL (70-105); POTASSIUM 3.1 MMOL/L (3.6-5.0); SODIUM 138 MMOL/L (135-145); TOTAL PROTEIN 7.8 GM/DL (6.4-8.2)
[2022-03-09 15:24] LABS: AMPHETAMINE SCREEN, URINE POSITIVE (NEGATIVE); BENZODIAZEPINES SCREEN URINE NEGATIVE (NEGATIVE); COCAINE SCREEN URINE NEGATIVE (NEGATIVE)
[2022-03-09 15:25] LABS: BARBITURATE SCREEN URINE NEGATIVE (NEGATIVE); CANNABINOID SCREEN, URINE NEGATIVE (NEGATIVE); METHADONE STAT NEGATIVE (NEGATIVE); OPIATE SCREEN URINE NEGATIVE (NEGATIVE); OXYCODONE STAT NEGATIVE (NEGATIVE); PROPOXYPHENE STAT NEGATIVE (NEGATIVE); TRICYCLIC ANTIDEPRESSANTS SCRE NEGATIVE (NEGATIVE)
[2022-03-09] MEDS ORDERED: cefTRIAXone 1 GM PRE-MIX 50 ML IV STA (15:43)
[2022-03-09 15:45] LABS: LIPASE 11 U/L (8-78); MAGNESIUM 2.1 MG/DL (1.6-2.4)
[2022-03-09] MEDS ORDERED: KCL 20 MEQ TAB (K-DUR) PO ONE (15:45)
[2022-03-09] MEDS ORDERED: OLANZapine 5 MG ODT (ZyPREXA ZYDIS) PO ONE (15:45)
--- NOTE | 2022-03-09 15:45 | Diagnostic Imaging Report ---
INDICATION Chest pain. COMPARISON: 11/01/2021. TECHNIQUE: Single radiograph of the chest dated March 09, 2022. FINDINGS: The cardiac silhouette is within normal limits in size. No significant pulmonary vascular congestion. The lungs are clear. No pleural effusion. No pneumothorax. No acute osseous abnormality. IMPRESSION: No acute cardiopulmonary abnormality. Dictated by: Dictated on workstation # [id number]
[2022-03-09] MEDS ORDERED: CEFD300C3 PO (15:49)
[2022-03-09 16:25] VITALS: BP 135/82
== END 2022-03-09 16:35 | disposition home or self-care (01) ==
LOC: EDUNIT# 14:40 → ER FS 14:41
DX: N30.90 Cystitis, unspecified without hematuria (principal); Z86.16 Personal history of COVID-19; Z91.040 Latex allergy status; Z28.310 Unvaccinated for COVID-19
CPT/HCPCS: 36415; 71045; 80053; 80306; 81000; 83690; 83735; 83880; 84484; 85025; G0480; 80320; 93005